=== PATIENT | female | born 1955 | race Caucasian/White ===

== ENCOUNTER 2018-05-17 15:50 | Emergency (ER) | payer MEDICARE, OTHER, SELFPAY ==
[2018-05-17 16:20] VITALS: BP 121/80; PULSE 94; RESP 18; TEMP 37.3; O2SAT 99; BMI 34.0
--- NOTE | 2018-05-17 17:14 | ED.ABDPAIN ---
HPI - Abdominal Pain <Shila Hdez PA-C - Last Filed: 05/17/18 22:01> General Chief Complaint: Abdominal Pain Stated Complaint: THINKS BLADDER / KIDNEY INFECTION Time Seen by Provider: 05/17/18 17:08 Source: patient Mode of arrival: ambulatory Limitations: no limitations History of Present Illness HPI narrative: This 62-year-old female comes in due to concern for kidney or bladder infection. She states that she began to have some mild dysuria off and on about a week ago and this was after traveling, so thought she just needed to drink more water. She states for the last couple of days, she has had increased frequency, urgency and dysuria, and for the last 2 nights she has had pain across her lower abdomen and flanks. She states that this occurred in bed and lasted for a few hours. She states today, she felt the pain in her back when she was up and also noticed that she had a temperature up to 99.8, so thought she should have this checked out. 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 She states that she has been maybe slightly queasy, no vomiting. She denies any bowel symptoms. No recent illness or other travel. No swelling in the extremities, chest pain or dyspnea Related Data Home Medications Medication Instructions Recorded Confirmed atenolol 50 mg PO DAILY 05/17/18 05/17/18 cetirizine 10 mg PO DAILY 05/17/18 05/17/18 fluticasone 1 spray INTRANASAL DAILY PRN 05/17/18 05/17/18 levothyroxine [Synthroid] 50 mcg PO DAILY 05/17/18 05/17/18 pantoprazole 40 mg PO QPM 05/17/18 05/17/18 Previous Rx's Medication Instructions Recorded levofloxacin [Levaquin] 750 mg PO DAILY 7 Days #7 tab 05/17/18 phenazopyridine [Pyridium] 200 mg PO Q8H PRN 2 Days #6 tab 05/17/18 Allergies Allergy/AdvReac Type Severity Reaction Status Date / Time Penicillins [PENICILLINS] Allergy Mild RASH Unverified 10/18/17 12:30 doxycycline [DOXYCYCLINE] Allergy Unknown Unverified 10/18/17 12:30 erythromycin base Allergy Unknown Unverified 04/11/18 12:30 [ERYTHROMYCIN BASE] fluconazole [FLUCONAZOLE] Allergy Unknown Unverified 10/18/17 12:30 metoclopramide Allergy Unknown Unverified 10/18/17 12:30 [METOCLOPRAMIDE] Sulfa (Sulfonamide Allergy Unknown Unverified 10/18/17 12:30 Antibiotics) tetracycline [TETRACYCLINE] Allergy Unknown Unverified 10/18/17 12:30 Review of Systems <JUAN JOSE Espinoza Last Filed: 05/17/18 22:01> Review of Systems All systems reviewed & are unremarkable except as noted in HPI and below Exam <JUAN JOSE Espinoza Last Filed: 05/17/18 22:01> Narrative Exam Narrative: GENERAL APPEARANCE: Patient sitting comfortably, in no distress, reading. LUNGS: Clear to auscultation bilaterally. HEART: Rate and rhythm regular without murmur, normal S1 and S2, no S3 or S4. ABDOMEN: Soft, ND, +BS x 4 quadrants, minimal suprapubic tenderness without guarding or rebound. Mild bilateral CVAT DERMATOLOGIC: No exanthem NEUROLOGIC: Alert and oriented with normal speech and coordination Initial Vital Signs Initial Vital Signs: Vital Signs Temperature 99.2 F 05/17/18 16:20 Pulse Rate 94 H 05/17/18 16:20 Respiratory Rate 18 05/17/18 16:20 Blood Pressure 121/80 05/17/18 16:20 Pulse Oximetry 99 05/17/18 16:20 <Alec Tian DO - Last Filed: 05/18/18 13:46> Initial Vital Signs Initial Vital Signs: Vital Signs Temperature 99.2 F 05/17/18 16:20 Pulse Rate 94 H 05/17/18 16:20 Respiratory Rate 18 05/17/18 16:20 Blood Pressure 121/80 05/17/18 16:20 Pulse Oximetry 99 05/17/18 16:20 Course <JUAN JOSE Espinoza Last Filed: 05/17/18 22:01> Orders Ordered: ED Orders 05/17/18 17:05 Urine Culture Stat Urine Microscopic Stat 05/17/18 17:46 Complete Blood Count AUTO DIFF Stat Comprehensive Metabolic Panel Stat Lactate (Lactic Acid) Stat Lipase Stat Vital Signs - 8 hr 05/17/18 16:20 05/17/18 19:24 Temperature 99.2 F 98.4 F Pulse Rate 94 H 62 Respiratory Rate 18 18 Blood Pressure 121/80 134/72 Pulse Oximetry 99 97 <Alec Tian DO - Last Filed: 05/18/18 13:46> Orders Ordered: ED Orders 05/17/18 17:05 Urine Culture Stat Urine Microscopic Stat 05/17/18 17:46 Complete Blood Count AUTO DIFF Stat Comprehensive Metabolic Panel Stat Lactate (Lactic Acid) Stat Lipase Stat Vital Signs - 8 hr 05/17/18 16:20 05/17/18 19:24 Temperature 99.2 F 98.4 F Pulse Rate 94 H 62 Respiratory Rate 18 18 Blood Pressure 121/80 134/72 Pulse Oximetry 99 97 MDM - Abdominal Pain <Shila Hdez PA-C - Last Filed: 05/17/18 22:01> Lab Data Result diagrams: 05/17/18 17:46 05/17/18 17:46 Lab Results 05/17/18 05/17/18 05/17/18 Range/Units 17:05 17:46 17:46 WBC 10.6 (4.5-11.0) X10^3/uL RBC 4.32 (4.0-5.2) X10^6/uL Hgb 12.6 (12.0-16.0) g/dL Hct 38.2 (36-46) % MCV 88.3 (80-100) fL MCH 29.2 (26-34) PG MCHC 33.1 (30-36) % RDW 14.1 (11.6-14.8) % Plt Count 299 (150-400) X10^3/uL Neut % (Auto) 67.7 (50-75) % Lymph % (Auto) 20.4 L (25-40) % [place] % (Auto) 10.6 (3-14) % Eos % (Auto) 0.7 L (2-4) % Baso % (Auto) 0.6 (0-2) % Neut # (Auto) 7200 H (9073-6266) /uL Sodium 141 (137-145) mmol/L Potassium 4.1 (3.4-5.1) mmol/L Chloride 105 (98-107) mmol/L Carbon Dioxide 27 (22-32) mmol/L BUN 13 (7-17) mg/dL Creatinine 0.60 (0.52-1.04) mg/dL Estimated GFR > 60.0 (>60) mL/min BUN/Creatinine Ratio 21.7 (6-22) Glucose 89 (80-110) mg/dL Lactate (0.7-2.1) mmol/L Calcium 9.3 (8.4-10.2) mg/dL Total Bilirubin 0.4 (0.2-1.3) mg/dL AST 23 (14-36) IU/L ALT 33 (9-52) IU/L Alkaline Phosphatase 76 (38-126) U/L Total Protein 7.5 (6.3-8.2) g/dL Albumin 4.1 (3.5-5.0) g/dL Globulin 3.4 (1.7-4.1) g/dL Albumin/Globulin Ratio 1.2 (1.0-2.8) Lipase 122 (23-300) U/L Urine RBC 1-5/hpf (0-5/HPF) Urine WBC 10-30/hpf H (0-5/HPF) Ur Squamous Epith Cells 0-1 /hpf Urine Bacteria Few (2-10) H (None) Ur Culture Indicated? Specimen cultured Micro UA Comment Not Reportable 05/17/18 Range/Units 17:46 WBC (4.5-11.0) X10^3/uL RBC (4.0-5.2) X10^6/uL Hgb (12.0-16.0) g/dL Hct (36-46) % MCV (80-100) fL MCH (26-34) PG MCHC (30-36) % RDW (11.6-14.8) % Plt Count (150-400) X10^3/uL Neut % (Auto) (50-75) % Lymph % (Auto) (25-40) % [place] % (Auto) (3-14) % Eos % (Auto) (2-4) % Baso % (Auto) (0-2) % Neut # (Auto) (3815-5857) /uL Sodium (137-145) mmol/L Potassium (3.4-5.1) mmol/L Chloride (98-107) mmol/L Carbon Dioxide (22-32) mmol/L BUN (7-17) mg/dL Creatinine (0.52-1.04) mg/dL Estimated GFR (>60) mL/min BUN/Creatinine Ratio (6-22) Glucose (80-110) mg/dL Lactate 0.8 (0.7-2.1) mmol/L Calcium (8.4-10.2) mg/dL Total Bilirubin (0.2-1.3) mg/dL AST (14-36) IU/L ALT (9-52) IU/L Alkaline Phosphatase (38-126) U/L Total Protein (6.3-8.2) g/dL Albumin (3.5-5.0) g/dL Globulin (1.7-4.1) g/dL Albumin/Globulin Ratio (1.0-2.8) Lipase (23-300) U/L Urine RBC (0-5/HPF) Urine WBC (0-5/HPF) Ur Squamous Epith Cells Urine Bacteria (None) Ur Culture Indicated? Micro UA Comment Point of care testing: Urine Dip Bedside Urine Glucose Negative Bedside Urine Bilirubin - Negative Bedside Urine Ketone - Negative Urine Specific [place] 1.010 Bedside Urine Occult Blood +/- Bedside Urine pH 6.0 Bedside Urine Protein - Negative Bedside Urine Urobilinogen - Negative Bedside Urine Nitrite - Negative Bedside Urine Leukocytes - Negative Esterase <Alec Tian, DO - Last Filed: 05/18/18 13:46> Lab Data Lab Results 05/17/18 05/17/18 05/17/18 Range/Units 17:05 17:46 17:46 WBC 10.6 (4.5-11.0) X10^3/uL RBC 4.32 (4.0-5.2) X10^6/uL Hgb 12.6 (12.0-16.0) g/dL Hct 38.2 (36-46) % MCV 88.3 (80-100) fL MCH 29.2 (26-34) PG MCHC 33.1 (30-36) % RDW 14.1 (11.6-14.8) % Plt Count 299 (150-400) X10^3/uL Neut % (Auto) 67.7 (50-75) % Lymph % (Auto) 20.4 L (25-40) % [place] % (Auto) 10.6 (3-14) % Eos % (Auto) 0.7 L (2-4) % Baso % (Auto) 0.6 (0-2) % Neut # (Auto) 7200 H (1144-0520) /uL Sodium 141 (137-145) mmol/L Potassium 4.1 (3.4-5.1) mmol/L Chloride 105 (98-107) mmol/L Carbon Dioxide 27 (22-32) mmol/L BUN 13 (7-17) mg/dL Creatinine 0.60 (0.52-1.04) mg/dL Estimated GFR > 60.0 (>60) mL/min BUN/Creatinine Ratio 21.7 (6-22) Glucose 89 (80-110) mg/dL Lactate (0.7-2.1) mmol/L Calcium 9.3 (8.4-10.2) mg/dL Total Bilirubin 0.4 (0.2-1.3) mg/dL AST 23 (14-36) IU/L ALT 33 (9-52) IU/L Alkaline Phosphatase 76 (38-126) U/L Total Protein 7.5 (6.3-8.2) g/dL Albumin 4.1 (3.5-5.0) g/dL Globulin 3.4 (1.7-4.1) g/dL Albumin/Globulin Ratio 1.2 (1.0-2.8) Lipase 122 (23-300) U/L Urine RBC 1-5/hpf (0-5/HPF) Urine WBC 10-30/hpf H (0-5/HPF) Ur Squamous Epith Cells 0-1 /hpf Urine Bacteria Few (2-10) H (None) Ur Culture Indicated? Specimen cultured Micro UA Comment Not Reportable 05/17/18 Range/Units 17:46 WBC (4.5-11.0) X10^3/uL RBC (4.0-5.2) X10^6/uL Hgb (12.0-16.0) g/dL Hct (36-46) % MCV (80-100) fL MCH (26-34) PG MCHC (30-36) % RDW (11.6-14.8) % Plt Count (150-400) X10^3/uL Neut % (Auto) (50-75) % Lymph % (Auto) (25-40) % [place] % (Auto) (3-14) % Eos % (Auto) (2-4) % Baso % (Auto) (0-2) % Neut # (Auto) (7194-3437) /uL Sodium (137-145) mmol/L Potassium (3.4-5.1) mmol/L Chloride (98-107) mmol/L Carbon Dioxide (22-32) mmol/L BUN (7-17) mg/dL Creatinine (0.52-1.04) mg/dL Estimated GFR (>60) mL/min BUN/Creatinine Ratio (6-22) Glucose (80-110) mg/dL Lactate 0.8 (0.7-2.1) mmol/L Calcium (8.4-10.2) mg/dL Total Bilirubin (0.2-1.3) mg/dL AST (14-36) IU/L ALT (9-52) IU/L Alkaline Phosphatase (38-126) U/L Total Protein (6.3-8.2) g/dL Albumin (3.5-5.0) g/dL Globulin (1.7-4.1) g/dL Albumin/Globulin Ratio (1.0-2.8) Lipase (23-300) U/L Urine RBC (0-5/HPF) Urine WBC (0-5/HPF) Ur Squamous Epith Cells Urine Bacteria (None) Ur Culture Indicated? Micro UA Comment Point of care testing: Urine Dip Bedside Urine Glucose Negative Bedside Urine Bilirubin - Negative Bedside Urine Ketone - Negative Urine Specific [place] 1.010 Bedside Urine Occult Blood +/- Bedside Urine pH 6.0 Bedside Urine Protein - Negative Bedside Urine Urobilinogen - Negative Bedside Urine Nitrite - Negative Bedside Urine Leukocytes - Negative Esterase Discharge Plan Departure Patient Disposition: Home Clinical Impression: Acute pyelonephritis Discharge Date/Time: 05/17/18 19:26 Interventions: ED Discharge Assessment Last Done: 05/17/18 19:24 Instructions: DI for Kidney Infection Activity Restrictions/Additional Instructions: Please return as we talked about if you have any acutely worsening symptoms, or new symptoms such as high fever or vomiting. Otherwise, please follow-up with your PCP in a few days for recheck. Start the antibiotic levofloxacin that you have taken in the past this evening. It you can also the urinary tract pain reliever as needed. Prescriptions: New levofloxacin [Levaquin] 750 mg tablet 750 mg PO DAILY 7 Days Qty: 7 RF: 0 phenazopyridine [Pyridium] 200 mg tablet 200 mg PO Q8H PRN (Reason: urinary) 2 Days Qty: 6 RF: 0 No Action cetirizine 10 mg tablet 10 mg PO DAILY RF: 0 levothyroxine [Synthroid] 50 mcg tablet 50 mcg PO DAILY RF: 0 pantoprazole 40 mg tablet,delayed release (DR/EC) 40 mg PO QPM RF: 0 fluticasone 50 mcg/actuation spray,suspension 1 spray Intranasal DAILY PRN (Reason: Allergy Symptoms) RF: 0 atenolol 50 mg tablet 50 mg PO DAILY RF: 0 Referrals: Madelyn Mckeon MD [Primary Care Provider] - <Alec Tian DO - Last Filed: 05/18/18 13:46> Cosign ED Attending Cosignature Attestation: I was immediately available in the department for consultation. Documentation has been reviewed. I agree with assessment and plan.
[2018-05-17 17:26] LABS: RBC Urine 1-5/HPF (0-5/HPF)
[2018-05-17 17:27] LABS: Bacteria Urine Few (2-10); Culture Indicated Urine Specimen Cultured; Squamous Epithelial Cell Urine 0-1 /HPF; WBC Urine 10-30/HPF (0-5/HPF)
[2018-05-17 17:52] LABS: Add Manual Diff / Slide Review NO; Basophils Percent Auto 0.6 % (0-2); Eosinophils Percent Auto 0.7 % (2-4); Hematocrit 38.2 % (36-46); Hemoglobin 12.6 g/dL (12.0-16.0); Lymphocytes Percent Auto 20.4 % (25-40); Mean Corpuscular HGB Conc 33.1 % (30-36); Mean Corpuscular Hemoglobin 29.2 PG (26-34); Mean Corpuscular Volume 88.3 fL (80-100); Monocytes Percent Auto 10.6 % (3-14); Neutrophils Absolute Auto 7200 /uL (3000-5900); Neutrophils Percent Auto 67.7 % (50-75); Platelet Count 299 X10^3/uL (150-400); Red Blood Cell Count 4.32 X10^6/uL (4.0-5.2); Red Cell Distribution Width 14.1 % (11.6-14.8); White Blood Cell Count 10.6 X10^3/uL (4.5-11.0)
[2018-05-17 18:06] LABS: Lactate (Lactic Acid) 0.8 mmol/L (0.7-2.1)
[2018-05-17 18:07] LABS: Alanine Aminotransferase 33 IU/L (9-52); Albumin 4.1 g/dL (3.5-5.0); Albumin Globulin Ratio 1.2 (1.0-2.8); Alkaline Phosphatase 76 U/L (38-126); Aspartate Aminotransferase 23 IU/L (14-36); BUN Creatinine Ratio 21.7 (6-22); Bilirubin Total 0.4 mg/dL (0.2-1.3); Blood Urea Nitrogen 13 mg/dL (7-17); Calcium 9.3 mg/dL (8.4-10.2); Carbon Dioxide 27 mmol/L (22-32); Chloride 105 mmol/L (98-107); Estimated Glomerular Filt Rate > 60.0 mL/min (>60); Globulin 3.4 g/dL (1.7-4.1); Glucose 89 mg/dL (80-110); HEMOLYSIS < 15 (0-50); Lipase 122 U/L (23-300); Potassium 4.1 mmol/L (3.4-5.1); Sodium 141 mmol/L (137-145); Total Protein 7.5 g/dL (6.3-8.2)
[2018-05-17 19:24] VITALS: BP 134/72; PULSE 62; RESP 18; TEMP 36.9; O2SAT 97
== END 2018-05-17 19:26 | disposition home or self-care (01) ==
PROVIDERS: Emergency Medicine; Emergency Provider Internal Medicine; Family Provider Internal Medicine; PCP Internal Medicine
DX: N10 Acute pyelonephritis (principal)
CPT/HCPCS: 36415; 80053; 81003; 81015; 83605; 83690; 85025; 87077; 87086; 87186; 99282; 99283

== ENCOUNTER 2018-12-21 08:39 | Emergency (ER) | payer MEDICARE, OTHER, SELFPAY ==
[2018-12-21 08:47] VITALS: BP 146/78; PULSE 81; RESP 20; TEMP 36.5; O2SAT 95; BMI 35.2
--- NOTE | 2018-12-21 09:53 | ED.BACK ---
HPI - Back Pain/Injury General Chief Complaint: Back Pain/Injury Stated Complaint: back pain Time Seen by Provider: 12/21/18 10:18 Source: patient and family Mode of arrival: ambulatory Limitations: no limitations History of Present Illness HPI Narrative: 63-year-old female comes to the emergency department complaint of back pain. Patient states sort of her right thoracic area, it has been going on for about a month it has been slowly worsening. She finds a little bit worse with movement. Patient states it was coming around to the front a little bit but now it is mostly just in the back and a little bit on the side. It radiates a little bit up towards her scapula. She denies any shortness of breath she denies any worsening with exertion. No fevers or chills. No cold cough or congestion. No nausea, no vomiting no other major GI symptom changes. Patient has had her gallbladder removed along with hysterectomy and partial thyroidectomy. She takes medication for a ?benign and tachycardia?, occasional asthma medications, thyroid medication and GERD medication. She denies any history of hypertension or dyslipidemia. No rashes or skin changes. Patient states she has been taking Tylenol which is helpful that the pain typically comes back. She states that it was becoming more uncomfortable so she came in today for evaluation. She has had back problems in the past but not specifically in this location. No trauma, no falls or major exertion. She states she does garden regularly. Related Data Home Medications Medication Instructions Recorded Confirmed atenolol 50 mg PO DAILY 05/17/18 12/21/18 cetirizine 10 mg PO QPM 05/17/18 12/21/18 fluticasone propionate 1 spray INTRANASAL DAILY PRN 05/17/18 12/21/18 levothyroxine [Synthroid] 50 mcg PO DAILY 05/17/18 12/21/18 pantoprazole 40 mg PO QPM 05/17/18 12/21/18 albuterol sulfate [ProAir HFA] 1 puff INHALATION PRN PRN 12/21/18 12/21/18 loperamide 2 mg PO PRN PRN 12/21/18 12/21/18 Allergies Allergy/AdvReac Type Severity Reaction Status Date / Time Penicillins [PENICILLINS] Allergy Mild RASH Unverified 10/18/17 12:30 doxycycline [DOXYCYCLINE] Allergy Unknown Unverified 10/18/17 12:30 erythromycin base Allergy Unknown Unverified 10/18/17 12:30 [ERYTHROMYCIN BASE] fluconazole [FLUCONAZOLE] Allergy Unknown Unverified 10/18/17 12:30 metoclopramide Allergy Unknown Unverified 10/18/17 12:30 [METOCLOPRAMIDE] Sulfa (Sulfonamide Allergy Unknown Unverified 10/18/17 12:30 Antibiotics) tetracycline [TETRACYCLINE] Allergy Unknown Unverified 10/18/17 12:30 Review of Systems Review of Systems ROS Unobtainable: All systems reviewed & are unremarkable except as noted in HPI and below Constitutional Denies chills, Denies fever(s), Denies lethargy and Denies weakness ENT Ears, Nose, Mouth, and Throat: Denies nasal congestion Cardiovascular Denies chest pain, Denies diaphoresis, Denies syncope, Denies rapid heart rate, Denies edema, Denies irregular heart rhythm, Denies lightheadedness, Denies palpitations, Denies dyspnea, Denies dyspnea on exertion and Denies orthopnea Respiratory Denies change in phlegm color, Denies chest congestion, Denies cough, Denies excessive phlegm production, Denies pain on inspiration, Denies dyspnea, Denies dyspnea on exertion and Denies wheezing Gastrointestinal Gastrointestinal: Denies abdominal pain, Denies melena, Denies hematochezia, Denies change in bowel habits, Denies diarrhea, Denies nausea and Denies vomiting Genitourinary Denies hematuria, Reports urinary frequency, Denies dysuria, Reports flank pain (Right back/flank), Denies urinary incontinence and Denies urinary urgency Musculoskeletal Reports as per HPI, Reports back pain, Denies muscle weakness, Denies numbness and Denies tingling Integumentary/Breasts Denies rash Neurologic Denies syncope, Denies numbness, Denies tingling and Denies weakness Endocrine Denies palpitations Allergic/Immunologic Denies wheezing [facility] Medical History Degenerative disc disease (Chronic) GERD (gastroesophageal reflux disease) (Chronic) Hypothyroidism (Chronic) Osteoarthritis of multiple joints (Chronic) Tachycardia, paroxysmal (Chronic) Surgical History H/O partial thyroidectomy (Resolved) Status post cholecystectomy (Resolved) Status post hysterectomy (Resolved) Social History Smoking Status: Never smoker Social History Smoking Status: Never smoker alcohol intake: current substance use type: does not use Exam Narrative Exam Narrative: GENERAL: Alert and oriented x three, moderately obese, well-appearing female in mild distress. HEENT: Head normocephalic, atraumatic, EOMI, pupils reactive, face symmetric, moist mucous membranes NECK: Supple, full range of motion CARDIOVASCULAR: Regular rate and rhythm without murmurs, rubs or gallops. RESPIRATORY: Breath sounds equal bilaterally, no wheezes rales or rhonchi. ABDOMEN: Soft, nontender. Normoactive bowel sounds all 4 quadrants. No guarding or rebound, rigidity, no mass : No CVA tenderness BACK: No cervical, thoracic or lumbar vertebral point tenderness. Patient has normal range of motion. Patient's gait is normal. Rectal exam is deferred. Muscle strength is 5/5 in upper and lower extremities, sensation intact in all 4 extremities. No skin changes, patient has some tenderness over the right ribcage along the posterior and anterior chest but no point tenderness, no crepitus or subcutaneous emphysema. EXTREMITIES: Normal range of motion, no clubbing or edema. Neurovascularly intact NEUROLOGICAL: Cranial nerves II through XII grossly intact. Moving all extremities SKIN: Warm, dry, no petechiae, no rashes or lesions. Initial Vital Signs Initial Vital Signs: Vital Signs Temperature 97.7 F 12/21/18 08:47 Pulse Rate 81 12/21/18 08:47 Respiratory Rate 20 12/21/18 08:47 Blood Pressure 146/78 H 12/21/18 08:47 Pulse Oximetry 95 12/21/18 08:47 Scores HEART Score Heart Score history: Slightly Suspicious Heart Score EKG: Normal Heart Score Age: > or = 65 years old Heart Score risk factors: No known risk factors Heart Score troponin: < or = to normal limit Heart Score Total: 2 Course Orders Ordered: ED Orders 12/21/18 10:37 US abdomen complete Stat XR chest 2V Stat EKG-12 Lead Stat 12/21/18 11:10 Complete Blood Count AUTO DIFF Stat Comprehensive Metabolic Panel Stat Lipase Stat Troponin & CK Cardiac Panel Stat Discontinued Medications Ketorolac Tromethamine (Toradol) 30 mg IV NOW ONE Stop: 12/21/18 10:38 Last Admin: 12/21/18 11:33 Dose: 30 mg Vital Signs - 8 hr 12/21/18 11:39 12/21/18 12:25 12/21/18 12:45 Pulse Rate 67 62 64 Respiratory Rate 11 L 14 18 Blood Pressure 124/63 Blood Pressure [Right Arm] 130/73 115/57 L Pulse Oximetry 99 100 98 MDM - Back Pain/Injury Lab Data Attestation: I reviewed the patient's lab results. Result diagrams: 12/21/18 11:10 12/21/18 11:10 Lab Results 12/21/18 12/21/18 Range/Units 11:10 11:10 WBC 8.1 (4.5-11.0) X10^3/uL RBC 4.52 (4.0-5.2) X10^6/uL Hgb 13.2 (12.0-16.0) g/dL Hct 39.4 (36-46) % MCV 87.2 (80-100) fL MCH 29.2 (26-34) PG MCHC 33.5 (30-36) % RDW 14.3 (11.6-14.8) % Plt Count 307 (150-400) X10^3/uL Neut % (Auto) 60.4 (50-75) % Lymph % (Auto) 27.2 (25-40) % Benton % (Auto) 9.2 (3-14) % Eos % (Auto) 2.0 (2-4) % Baso % (Auto) 1.2 (0-2) % Neut # (Auto) 4900 (0632-1842) /uL Lymph # (Auto) 2200 (2291-3387) /uL Benton # (Auto) 700 (0-900) /uL Eos # (Auto) 200 (0-450) /uL Baso # (Auto) 100 (0-100) /uL Sodium 139 (137-145) mmol/L Potassium 4.7 (3.4-5.1) mmol/L Chloride 107 (98-107) mmol/L Carbon Dioxide 24 (22-32) mmol/L BUN 14 (7-17) mg/dL Creatinine 0.60 (0.52-1.04) mg/dL Estimated GFR > 60.0 (>60) mL/min BUN/Creatinine Ratio 23.3 H (6-22) Glucose 93 (80-110) mg/dL Calcium 9.4 (8.4-10.2) mg/dL Total Bilirubin 0.6 (0.2-1.3) mg/dL AST 32 (14-36) IU/L ALT 26 (9-52) IU/L Alkaline Phosphatase 73 (38-126) U/L Total Creatine Kinase 51 (30-135) U/L CK-MB (CK-2) TNP CK-MB (CK-2) Rel Index TNP Troponin I < 0.012 (0.01-0.034) ng/mL Total Protein 8.0 (6.3-8.2) g/dL Albumin 4.2 (3.5-5.0) g/dL Globulin 3.8 (1.7-4.1) g/dL Albumin/Globulin Ratio 1.1 (1.0-2.8) Lipase 94 (23-300) U/L Urine Dip Bedside Urine Glucose Negative Bedside Urine Bilirubin - Negative Bedside Urine Ketone - Negative Urine Specific P[place]oy 1.015 Bedside Urine Occult Blood - Negative Bedside Urine pH 6.0 Bedside Urine Protein - Negative Bedside Urine Urobilinogen - Negative Bedside Urine Nitrite - Negative Bedside Urine Leukocytes - Negative Esterase Imaging Data US - abdomen: My impression: [address] [address] Ultrasound Report Signed Patient: Martha Canales QMR#: [id number] : 3Acct:[id number] Age/Sex: 63 / FDate of Service: 12/21/18 Loc: ED Accession Number: [id number] Procedure: US abdomen complete Ordering Provider: Cathy Barton D.O. PROCEDURE: US ABDOMEN COMPLETE INDICATIONS: RIGHT FLANK/ABDOMINAL PAIN. NOW MOSTLY FLANK TECHNIQUE: Real-time scanning was performed of the abdominal and retroperitoneal organs, with image documentation. COMPARISON: [facility], CT, ABDOMEN/PELVIS WITH CONTRAST, 04/21/2015, 21:23. FINDINGS: Liver: Liver is normal in size and homogeneous in echotexture, hyperechoic consistent with fatty infiltration. Gallbladder: Surgically absent. Biliary ducts: Intrahepatic bile ducts are non-dilated. Extrahepatic bile duct caliber measures 9.0 mm. Normal is 6-7 mm or less in diameter, or 10 mm or less post-cholecystectomy. Pancreas: Visualized portions of the pancreas are sonographically normal. Spleen: Spleen is normal in size and homogeneous in echotexture. Kidneys: Kidneys are normal in size and echotexture. Right kidney measures 8.8 cm long; left kidney measures 9.3 cm long. No hydronephrosis or nephrolithiasis. No solid masses. Aorta: Visualized aorta is normal in caliber at less than 3 cm. Iliacs: Proximal common iliac arteries are normal in caliber at less than 2.5 cm. IVC: Intrahepatic inferior vena cava is patent. Miscellaneous: No free abdominal fluid. IMPRESSION: Fatty infiltration throughout the liver, prior cholecystectomy. The source of right-sided flank pain is not found. Quality of visualization is somewhat limited by large body habitus, and depending on the clinical status followup by CT scanning may be warranted. Dictated by: Goyo Mackey M.D. on 12/21/2018 at 11:13 Approved by: Goyo Mackey M.D. on 12/21/2018 at 11:15 Chest x-ray: Radiologist's impression: [place] [address] XRay Report Signed Patient: Martha Canales QMR#: [id number] : 1955cct:[id number] Age/Sex: 63 / FDate of Service: 12/21/18 Loc: ED Accession Number: [id number] Procedure: XR chest 2V Ordering Provider: Cathy Barton D.O. PROCEDURE: XR CHEST 2V INDICATIONS: right rib/abd pain x 1 month TECHNIQUE: 2 views of the chest were acquired. COMPARISON: [facility], CHEST 2 VIEW, 11/14/2016, 19:37. [facility], CHEST 2 VIEW, 05/21/2016, 20:22. FINDINGS: Surgical changes and devices: None. Lungs and pleura: Lungs are clear. No pleural effusions or pneumothorax. Mediastinum: Mediastinal contours are normal. Heart size is normal. Bones and chest wall: No suspicious bony abnormalities. Soft tissues appear unremarkable. IMPRESSION: No trauma found, no underlying pleural disease is identified. Source of persistent rib pain is not seen. Dictated by: Goyo Mackey M.D. on 12/21/2018 at 11:13 Approved by: Goyo Mackey M.D. on 12/21/2018 at 11:13 ECG Data Attestation: I personally reviewed and interpreted this ECG as follows: Prior ECG tracings: available for review Interpretation: Rhythm rate of 72 P are 200 QRS 88 QTC of 421. No ST elevation or depression appreciated. Patient has prior for 11/15/2016 that appears similar. MDM Narrative Medical decision making narrative: Patient comes in with complaint of back pain. It is worse with some movement. It sort of thoracic at 1 point was wrapping more around to the front mostly just wraps around a little bit laterally. A little bit of flank sort of pain. Patient has not had any trauma. She has not had pain exactly similar. Patient's EKG, chest x-ray and troponin are negative no signs of infection. Ultrasound does not show any major abnormalities nor does her lab work otherwise from an abdominal standpoint, patient has had a cholecystectomy and her Biliary ducts are appropriate for post cholecystectomy size, patient's kidneys are normal. Urine does not show an infection. She has no rashes or skin changes consistent with shingles, patient is not having any shortness of breath or other symptoms concerning for pulmonary embolism. Discussed with patient suspect probably is more of a musculoskeletal issue. Discharge Plan Departure Patient Disposition: Home Clinical Impression: Thoracic back pain Qualifiers: Chronicity: chronic Back pain laterality: right Qualified Code(s): M54.6 - Pain in thoracic spine Discharge Date/Time: 12/21/18 12:45 Interventions: ED Discharge Assessment Last Done: 12/21/18 12:45 Instructions: DI for Thoracic Back Pain Activity Restrictions/Additional Instructions: Follow-up with your primary care physician in the next week for recheck. Call for an appointment. You may also take Tylenol up to a 1000 mg every 8 hours as needed for pain. Return to the emergency department for fevers could 100.4 F passing out, new chest pain, shortness of breath, lightheadedness, persistent vomiting, black or bloody stools or other new or concerning symptoms. Prescriptions: No Action albuterol sulfate [ProAir HFA] 90 mcg/actuation HFA aerosol inhaler 1 puff inhalation PRN PRN (Reason: Shortness Of Breath) RF: 0 loperamide 2 mg Capsule 2 mg PO PRN PRN (Reason: Diarrhea) RF: 0 cetirizine 10 mg tablet 10 mg PO QPM RF: 0 levothyroxine [Synthroid] 50 mcg tablet 50 mcg PO DAILY RF: 0 pantoprazole 40 mg tablet,delayed release (DR/EC) 40 mg PO QPM RF: 0 fluticasone propionate 50 mcg/actuation spray,suspension 1 spray Intranasal DAILY PRN (Reason: Allergy Symptoms) RF: 0 atenolol 50 mg tablet 50 mg PO DAILY RF: 0 Referrals: Madelyn Mckeon MD [Primary Care Provider] -
--- NOTE | 2018-12-21 10:37 | DI.RAD.S_ITS ---
PROCEDURE: XR CHEST 2V INDICATIONS: right rib/abd pain x 1 month TECHNIQUE: 2 views of the chest were acquired. COMPARISON: [facility], CHEST 2 VIEW, 11/14/2016, 19:37. [facility], CHEST 2 VIEW, 05/21/2016, 20:22. FINDINGS: Surgical changes and devices: None. Lungs and pleura: Lungs are clear. No pleural effusions or pneumothorax. Mediastinum: Mediastinal contours are normal. Heart size is normal. Bones and chest wall: No suspicious bony abnormalities. Soft tissues appear unremarkable. IMPRESSION: No trauma found, no underlying pleural disease is identified. Source of persistent rib pain is not seen. Dictated by: Goyo Mackey M.D. on 12/21/2018 at 11:13 Approved by: Goyo Mackey M.D. on 12/21/2018 at 11:13
--- NOTE | 2018-12-21 10:37 | DI.US.S_ITS ---
PROCEDURE: US ABDOMEN COMPLETE INDICATIONS: RIGHT FLANK/ABDOMINAL PAIN. NOW MOSTLY FLANK TECHNIQUE: Real-time scanning was performed of the abdominal and retroperitoneal organs, with image documentation. COMPARISON: [facility], CT, ABDOMEN/PELVIS WITH CONTRAST, 04/21/2015, 21:23. FINDINGS: Liver: Liver is normal in size and homogeneous in echotexture, hyperechoic consistent with fatty infiltration. Gallbladder: Surgically absent. Biliary ducts: Intrahepatic bile ducts are non-dilated. Extrahepatic bile duct caliber measures 9.0 mm. Normal is 6-7 mm or less in diameter, or 10 mm or less post-cholecystectomy. Pancreas: Visualized portions of the pancreas are sonographically normal. Spleen: Spleen is normal in size and homogeneous in echotexture. Kidneys: Kidneys are normal in size and echotexture. Right kidney measures 8.8 cm long; left kidney measures 9.3 cm long. No hydronephrosis or nephrolithiasis. No solid masses. Aorta: Visualized aorta is normal in caliber at less than 3 cm. Iliacs: Proximal common iliac arteries are normal in caliber at less than 2.5 cm. IVC: Intrahepatic inferior vena cava is patent. Miscellaneous: No free abdominal fluid. IMPRESSION: Fatty infiltration throughout the liver, prior cholecystectomy. The source of right-sided flank pain is not found. Quality of visualization is somewhat limited by large body habitus, and depending on the clinical status followup by CT scanning may be warranted. Dictated by: Goyo Mackey M.D. on 12/21/2018 at 11:13 Approved by: Goyo Mackey M.D. on 12/21/2018 at 11:15
--- NOTE | 2018-12-21 10:40 | ED_ITS ---
HPI - Back Pain/Injury General Chief Complaint: Back Pain/Injury Stated Complaint: back pain Time Seen by Provider: 12/21/18 10:18 Source: patient and family Mode of arrival: ambulatory Limitations: no limitations History of Present Illness HPI Narrative: 63-year-old female comes to the emergency department complaint of back pain. Patient states sort of her right thoracic area, it has been going on for about a month it has been slowly worsening. She finds a little bit worse with movement. Patient states it was coming around to the front a little bit but now it is mostly just in the back and a little bit on the side. It radiates a little bit up towards her scapula. She denies any shortness of breath she denies any worsening with exertion. No fevers or chills. No cold cough or congestion. No nausea, no vomiting no other major GI symptom changes. Patient has had her gallbladder removed along with hysterectomy and partial thyroidectomy. She takes medication for a ?benign and tachycardia?, occasional asthma medications, thyroid medication and GERD medication. She denies any history of hypertension or dyslipidemia. No rashes or skin changes. Patient states she has been taking Tylenol which is helpful that the pain typically comes back. She states that it was becoming more uncomfortable so she came in today for evaluation. She has had back problems in the past but not specifically in this location. No trauma, no falls or major exertion. She states she does garden regularly. Related Data Home Medications Medication Instructions Recorded Confirmed atenolol 50 mg PO DAILY 05/17/18 12/21/18 cetirizine 10 mg PO QPM 05/17/18 12/21/18 fluticasone propionate 1 spray INTRANASAL DAILY PRN 05/17/18 12/21/18 levothyroxine [Synthroid] 50 mcg PO DAILY 05/17/18 12/21/18 pantoprazole 40 mg PO QPM 05/17/18 12/21/18 albuterol sulfate [ProAir HFA] 1 puff INHALATION PRN PRN 12/21/18 12/21/18 loperamide 2 mg PO PRN PRN 12/21/18 12/21/18 Allergies Allergy/AdvReac Type Severity Reaction Status Date / Time Penicillins [PENICILLINS] Allergy Mild RASH Unverified 10/18/17 12:30 doxycycline [DOXYCYCLINE] Allergy Unknown Unverified 10/18/17 12:30 erythromycin base Allergy Unknown Unverified 10/18/17 12:30 [ERYTHROMYCIN BASE] fluconazole [FLUCONAZOLE] Allergy Unknown Unverified 10/18/17 12:30 metoclopramide Allergy Unknown Unverified 10/18/17 12:30 [METOCLOPRAMIDE] Sulfa (Sulfonamide Allergy Unknown Unverified 10/18/17 12:30 Antibiotics) tetracycline [TETRACYCLINE] Allergy Unknown Unverified 10/18/17 12:30 Review of Systems Review of Systems ROS Unobtainable: All systems reviewed & are unremarkable except as noted in HPI and below Constitutional Denies chills, Denies fever(s), Denies lethargy and Denies weakness ENT Ears, Nose, Mouth, and Throat: Denies nasal congestion Cardiovascular Denies chest pain, Denies diaphoresis, Denies syncope, Denies rapid heart rate, Denies edema, Denies irregular heart rhythm, Denies lightheadedness, Denies pa lpitations, Denies dyspnea, Denies dyspnea on exertion and Denies orthopnea Respiratory Denies change in phlegm color, Denies chest congestion, Denies cough, Denies excessive phlegm production, Denies pain on inspiration, Denies dyspnea, Denies dyspnea on exertion and Denies wheezing Gastrointestinal Gastrointestinal: Denies abdominal pain, Denies melena, Denies hematochezia, Denies change in bowel habits, Denies diarrhea, Denies nausea and Denies vomiting Genitourinary Denies hematuria, Reports urinary frequency, Denies dysuria, Reports flank pain (Right back/flank), Denies urinary incontinence and Denies urinary urgency Musculoskeletal Reports as per HPI, Reports back pain, Denies muscle weakness, Denies numbness and Denies tingling Integumentary/Breasts Denies rash Neurologic Denies syncope, Denies numbness, Denies tingling and Denies weakness Endocrine Denies palpitations Allergic/Immunologic Denies wheezing [facility] Medical History Degenerative disc disease (Chronic) GERD (gastroesophageal reflux disease) (Chronic) Hypothyroidism (Chronic) Osteoarthritis of multiple joints (Chronic) Tachycardia, paroxysmal (Chronic) Surgical History H/O partial thyroidectomy (Resolved) Status post cholecystectomy (Resolved) Status post hysterectomy (Resolved) Social History Smoking Status: Never smoker Social History Smoking Status: Never smoker alcohol intake: current substance use type: does not use Exam Narrative Exam Narrative: GENERAL: Alert and oriented x three, moderately obese, well- appearing female in mild distress. HEENT: Head normocephalic, atraumatic, EOMI, pupils reactive, face symmetric, moist mucous membranes NECK: Supple, full range of motion CARDIOVASCULAR: Regular rate and rhythm without murmurs, rubs or gallops. RESPIRATORY: Breath sounds equal bilaterally, no wheezes rales or rhonchi. ABDOMEN: Soft, nontender. Normoactive bowel sounds all 4 quadrants. No guarding or rebound, rigidity, no mass : No CVA tenderness BACK: No cervical, thoracic or lumbar vertebral point tenderness. Patient has normal range of motion. Patient's gait is normal. Rectal exam is deferred. Muscle strength is 5/5 in upper and lower extremities, sensation intact in all 4 extremities. No skin changes, patient has some tenderness over the right ribcage along the posterior and anterior chest but no point tenderness, no crepitus or subcutaneous emphysema. EXTREMITIES: Normal range of motion, no clubbing or edema. Neurovascularly intact NEUROLOGICAL: Cranial nerves II through XII grossly intact. Moving all extremities SKIN: Warm, dry, no petechiae, no rashes or lesions. Initial Vital Signs Initial Vital Signs: Vital Signs Temperature 97.7 F 12/21/18 08:47 Pulse Rate 81 12/21/18 08:47 Respiratory Rate 20 12/21/18 08:47 Blood Pressure 146/78 H 12/21/18 08:47 Pulse Oximetry 95 12/21/18 08:47 Scores HEART Score Heart Score history: Slightly Suspicious Heart Score EKG: Normal Heart Score Age: > or = 65 years old Heart Score risk factors: No known risk factors Heart Score troponin: < or = to normal limit Heart Score Total: 2 Course Orders Ordered: ED Orders 12/21/18 10:37 US abdomen complete Stat XR chest 2V Stat EKG-12 Lead Stat 12/21/18 11:10 Complete Blood Count AUTO DIFF Stat Comprehensive Metabolic Panel Stat Lipase Stat Troponin & CK Cardiac Panel Stat Discontinued Medications Ketorolac Tromethamine (Toradol) 30 mg IV NOW ONE Stop: 12/21/18 10:38 Last Admin: 12/21/18 11:33 Dose: 30 mg Vital Signs - 8 hr 12/21/18 11:39 12/21/18 12:25 12/21/18 12:45 Pulse Rate 67 62 64 Respiratory Rate 11 L 14 18 Blood Pressure 124/63 Blood Pressure [Right Arm] 130/73 115/57 L Pulse Oximetry 99 100 98 MDM - Back Pain/Injury Lab Data Attestation: I reviewed the patient's lab results. Result diagrams: 12/21/18 11:10 12/21/18 11:10 Lab Results 12/21/18 12/21/18 Range/Units 11:10 11:10 WBC 8.1 (4.5-11.0) X10^3/uL RBC 4.52 (4.0-5.2) X10^6/uL Hgb 13.2 (12.0-16.0) g/dL Hct 39.4 (36-46) % MCV 87.2 (80-100) fL MCH 29.2 (26-34) PG MCHC 33.5 (30-36) % RDW 14.3 (11.6-14.8) % Plt Count 307 (150-400) X10^3/uL Neut % (Auto) 60.4 (50-75) % Lymph % (Auto) 27.2 (25-40) % [place] % (Auto) 9.2 (3-14) % Eos % (Auto) 2.0 (2-4) % Baso % (Auto) 1.2 (0-2) % Neut # (Auto) 4900 (5164-3427) /uL Lymph # (Auto) 2200 (4029-8168) /uL [place] # (Auto) 700 (0-900) /uL Eos # (Auto) 200 (0-450) /uL Baso # (Auto) 100 (0-100) /uL Sodium 139 (137-145) mmol/L Potassium 4.7 (3.4-5.1) mmol/L Chloride 107 (98-107) mmol/L Carbon Dioxide 24 (22-32) mmol/L BUN 14 (7-17) mg/dL Creatinine 0.60 (0.52-1.04) mg/dL Estimated GFR > 60.0 (>60) mL/min BUN/Creatinine Ratio 23.3 H (6-22) Glucose 93 (80-110) mg/dL Calcium 9.4 (8.4-10.2) mg/dL Total Bilirubin 0.6 (0.2-1.3) mg/dL AST 32 (14-36) IU/L ALT 26 (9-52) IU/L Alkaline Phosphatase 73 (38-126) U/L Total Creatine Kinase 51 (30-135) U/L CK-MB (CK-2) TNP CK-MB (CK-2) Rel Index TNP Troponin I < 0.012 (0.01-0.034) ng/mL Total Protein 8.0 (6.3-8.2) g/dL Albumin 4.2 (3.5-5.0) g/dL Globulin 3.8 (1.7-4.1) g/dL Albumin/Globulin Ratio 1.1 (1.0-2.8) Lipase 94 (23-300) U/L Urine Dip Bedside Urine Glucose Negative Bedside Urine Bilirubin - Negative Bedside Urine Ketone - Negative Urine Specific [place] 1.015 Bedside Urine Occult Blood - Negative Bedside Urine pH 6.0 Bedside Urine Protein - Negative Bedside Urine Urobilinogen - Negative Bedside Urine Nitrite - Negative Bedside Urine Leukocytes - Negative Esterase Imaging Data US - abdomen: My impression: [address] [address] Ultrasound Report Signed Patient: Martha Canales QMR#: [id number] : 3Acct:[id number] Age/Sex: 63 / FDate of Service: 12/21/18 Loc: ED Accession Number: [id number] Procedure: US abdomen complete Ordering Provider: Cathy Barton D.O. PROCEDURE: US ABDOMEN COMPLETE INDICATIONS: RIGHT FLANK/ABDOMINAL PAIN. NOW MOSTLY FLANK TECHNIQUE: Real-time scanning was performed of the abdominal and retroperitoneal organs, with image documentation. COMPARISON: [facility], CT, ABDOMEN/PELVIS WITH CONTRAST, 04/21/2015, 21:23. FINDINGS: Liver: Liver is normal in size and homogeneous in echotexture, hyperechoic consistent with fatty infiltration. Gallbladder: Surgically absent. Biliary ducts: Intrahepatic bile ducts are non-dilated. Extrahepatic bile duct caliber measures 9.0 mm. Normal is 6-7 mm or less in diameter, or 10 mm or less post-cholecystectomy. Pancreas: Visualized portions of the pancreas are sonographically normal. Spleen: Spleen is normal in size and homogeneous in echotexture. Kidneys: Kidneys are normal in size and echotexture. Right kidney measures 8.8 cm long; left kidney measures 9.3 cm long. No hydronephrosis or nephrolithiasis. No solid masses. Aorta: Visualized aorta is normal in caliber at less than 3 cm. Iliacs: Proximal common iliac arteries are normal in caliber at less than 2.5 cm. IVC: Intrahepatic inferior vena cava is patent. Miscellaneous: No free abdominal fluid. IMPRESSION: Fatty infiltration throughout the liver, prior cholecystectomy. The source of right-sided flank pain is not found. Quality of visualization is somewhat limited by large body habitus, and depending on the clinical status followup by CT scanning may be warranted. Dictated by: Goyo Mackey M.D. on 12/21/2018 at 11:13 Approved by: Goyo Mackey M.D. on 12/21/2018 at 11:15 Chest x-ray: Radiologist's impression: [place] [address] XRay Report Signed Patient: Martha Canales QMR#: [id number] : [id number]:[id number] Age/Sex: 63 / FDate of Service: 12/21/18 Loc: ED Accession Number: [id number] Procedure: XR chest 2V Ordering Provider: Cathy Barton D.O. PROCEDURE: XR CHEST 2V INDICATIONS: right rib/abd pain x 1 month TECHNIQUE: 2 views of the chest were acquired. COMPARISON: [facility], CHEST 2 VIEW, 11/14/2016, 19:37. [facility], CHEST 2 VIEW, 05/21/2016, 20:22. FINDINGS: Surgical changes and devices: None. Lungs and pleura: Lungs are clear. No pleural effusions or pneumothorax. Mediastinum: Mediastinal contours are normal. Heart size is normal. Bones and chest wall: No suspicious bony abnormalities. Soft tissues appear unremarkable. IMPRESSION: No trauma found, no underlying pleural disease is identified. Source of persistent rib pain is not seen. Dictated by: Goyo Mackey M.D. on 12/21/2018 at 11:13 Approved by: Goyo Mackey M.D. on 12/21/2018 at 11:13 ECG Data Attestation: I personally reviewed and interpreted this ECG as follows: Prior ECG tracings: available for review Interpretation: Rhythm rate of 72 P are 200 QRS 88 QTC of 421. No ST elevation or depression appreciated. Patient has prior for 11/15/2016 that appears similar. MDM Narrative Medical decision making narrative: Patient comes in with complaint of back pain. It is worse with some movement. It sort of thoracic at 1 point was wrapping more around to the front mostly just wraps around a little bit laterally. A little bit of flank sort of pain. Patient has not had any trauma. She has not had pain exactly similar. Patient's EKG, chest x-ray and troponin are negative no signs of infection. Ultrasound does not show any major abnormalities nor does her lab work otherwise from an abdominal standpoint, patient has had a cholecystectomy and her Biliary ducts are appropriate for post cholecystectomy size, patient's kidneys are normal. Urine does not show an infection. She has no rashes or skin changes consistent with shingles, patient is not having any shortness of breath or other symptoms concerning for pulmonary embolism. Discussed with patient suspect probably is more of a musculoskeletal issue. Discharge Plan Departure Patient Disposition: Home Clinical Impression: Thoracic back pain Qualifiers: Chronicity: chronic Back pain laterality: right Qualified Code(s): M54.6 - Pain in thoracic spine Discharge Date/Time: 12/21/18 12:45 Interventions: ED Discharge Assessment Last Done: 12/21/18 12:45 Instructions: DI for Thoracic Back Pain Activity Restrictions/Additional Instructions: Follow-up with your primary care physician in the next week for recheck. Call for an appointment. You may also take Tylenol up to a 1000 mg every 8 hours as needed for pain. Return to the emergency department for fevers could 100.4 F passing out, new chest pain, shortness of breath, lightheadedness, persistent vomiting, black or bloody stools or other new or concerning symptoms. Prescriptions: No Action albuterol sulfate [ProAir HFA] 90 mcg/actuation HFA aerosol inhaler 1 puff inhalation PRN PRN (Reason: Shortness Of Breath) RF: 0 loperamide 2 mg Capsule 2 mg PO PRN PRN (Reason: Diarrhea) RF: 0 cetirizine 10 mg tablet 10 mg PO QPM RF: 0 levothyroxine [Synthroid] 50 mcg tablet 50 mcg PO DAILY RF: 0 pantoprazole 40 mg tablet,delayed release (DR/EC) 40 mg PO QPM RF: 0 fluticasone propionate 50 mcg/actuation spray,suspension 1 spray Intranasal DAILY PRN (Reason: Allergy Symptoms) RF: 0 atenolol 50 mg tablet 50 mg PO DAILY RF: 0 Referrals: Madelyn Mckeon MD [Primary Care Provider] -
[2018-12-21 11:22] LABS: Add Manual Diff / Slide Review NO; Basophils Absolute Auto 100 /uL (0-100); Basophils Percent Auto 1.2 % (0-2); Eosinophils Absolute Auto 200 /uL (0-450); Hematocrit 39.4 % (36-46); Hemoglobin 13.2 g/dL (12.0-16.0); Lymphocytes Absolute Auto 2200 /uL (1100-4500); Lymphocytes Percent Auto 27.2 % (25-40); Mean Corpuscular HGB Conc 33.5 % (30-36); Mean Corpuscular Hemoglobin 29.2 PG (26-34); Mean Corpuscular Volume 87.2 fL (80-100); Monocytes Absolute Auto 700 /uL (0-900); Monocytes Percent Auto 9.2 % (3-14); Neutrophils Absolute Auto 4900 /uL (1500-7000); Neutrophils Percent Auto 60.4 % (50-75); Platelet Count 307 X10^3/uL (150-400); Red Blood Cell Count 4.52 X10^6/uL (4.0-5.2); Red Cell Distribution Width 14.3 % (11.6-14.8); White Blood Cell Count 8.1 X10^3/uL (4.5-11.0)
[2018-12-21 11:33] LABS: Alanine Aminotransferase 26 IU/L (9-52); Albumin 4.2 g/dL (3.5-5.0); Albumin Globulin Ratio 1.1 (1.0-2.8); Alkaline Phosphatase 73 U/L (38-126); Aspartate Aminotransferase 32 IU/L (14-36); BUN Creatinine Ratio 23.3 (6-22); Bilirubin Total 0.6 mg/dL (0.2-1.3); Blood Urea Nitrogen 14 mg/dL (7-17); Calcium 9.4 mg/dL (8.4-10.2); Carbon Dioxide 24 mmol/L (22-32); Chloride 107 mmol/L (98-107); Creatine Kinase 51 U/L (30-135); Estimated Glomerular Filt Rate > 60.0 mL/min (>60); Globulin 3.8 g/dL (1.7-4.1); Glucose 93 mg/dL (80-110); Lipase 94 U/L (23-300); Potassium 4.7 mmol/L (3.4-5.1); Sodium 139 mmol/L (137-145)
[2018-12-21] MEDS: KETOROLAC 60 MG/2 ML VIAL 30 MG IV (11:33)
[2018-12-21 11:39] VITALS: BP 130/73; PULSE 67; RESP 11; O2SAT 99
[2018-12-21 11:44] LABS: Troponin I < 0.012 ng/mL (0.01-0.034)
[2018-12-21 11:45] LABS: HEMOLYSIS 68 (0-50)
[2018-12-21 12:25] VITALS: BP 115/57; PULSE 62; RESP 14; O2SAT 100
[2018-12-21 12:45] VITALS: BP 124/63; PULSE 64; RESP 18; O2SAT 98
== END 2018-12-21 12:45 | disposition home or self-care (01) ==
PROVIDERS: Emergency Provider Emergency Medicine; Family Provider Internal Medicine; PCP Internal Medicine
DX: M54.6 Pain in thoracic spine (principal); Z87.898 Personal history of other specified conditions
CPT/HCPCS: 36591; 71046; 76700; 80053; 81003; 82550; 83690; 84484; 85025; 93005; 96374; 99283; 99285; J1885

== ENCOUNTER 2019-09-04 11:19 | Observation (INO) | payer MEDICARE, OTHER, SELFPAY ==
[2019-09-04] VITALS (10 sets, daily range): BP systolic 102–150; BP diastolic 60–81; PULSE 62–74; RESP 12–20; TEMP 35.6–37.2; O2SAT 92–100; BMI 32.9
--- NOTE | 2019-09-04 11:25 | DI.RAD.S_ITS ---
PROCEDURE: XR CHEST 1V INDICATIONS: chest pain TECHNIQUE: One view of the chest was acquired. COMPARISON: [facility], , XR CHEST 2V, 12/21/2018, 10:39. [facility], , CHEST 2 VIEW, 11/14/2016, 19:37. FINDINGS: Surgical changes and devices: None. Lungs and pleura: Lungs are clear. No pleural effusions or pneumothorax. Mediastinum: Mediastinal contours appear normal. Heart size is normal. Bones and chest wall: No suspicious bony lesions. Overlying soft tissues appear unremarkable. IMPRESSION: Normal for age, source of current chest pain symptoms is not seen. Dictated by: Goyo Mackey M.D. on 09/04/2019 at 12:55 Approved by: Goyo Mackey M.D. on 09/04/2019 at 12:55
[2019-09-04 11:39] LABS: Bacteria Urine None Seen; WBC Urine None Seen (0-5/HPF)
--- NOTE | 2019-09-04 11:43 | PC.NURSE ---
by joo arriaga rn
[2019-09-04 11:44] LABS: Appearance Urine UA CLEAR; Bilirubin Urine UA NEGATIVE (NEGATIVE); Color Urine UA YELLOW; Glucose Urine UA NEGATIVE (Negative); Ketones Urine UA NEGATIVE (NEGATIVE); Leukocyte Esterase Urine UA NEGATIVE (NEGATIVE); Nitrite Urine UA NEGATIVE (Negative); Occult Blood Urine UA NEGATIVE (Negative); Protein Urine UA NEGATIVE (Negative); Urobilinogen Urine UA 0.2 E.U./dL (0.2)
[2019-09-04 11:58] LABS: INR 1.1 (0.9-1.3); Prothrombin Time 12.5 SECONDS (10.1-12.7)
[2019-09-04 12:00] LABS: PTT Partial Thromboplastin Tim 30 SECONDS (26.4-36.2)
[2019-09-04 12:01] LABS: Add Manual Diff / Slide Review NO; Basophils Absolute Auto 100 /uL (0-100); Basophils Percent Auto 0.7 % (0-2); Eosinophils Absolute Auto 0 /uL (0-450); Eosinophils Percent Auto 0.6 % (2-4); Hemoglobin 13.3 g/dL (12.0-16.0); Lymphocytes Absolute Auto 1700 /uL (1100-4500); Lymphocytes Percent Auto 22.9 % (25-40); Mean Corpuscular HGB Conc 33.2 % (30-36); Mean Corpuscular Hemoglobin 29.6 PG (26-34); Mean Corpuscular Volume 89.2 fL (80-100); Monocytes Absolute Auto 600 /uL (0-900); Monocytes Percent Auto 7.8 % (3-14); Neutrophils Absolute Auto 5000 /uL (1500-7000); Platelet Count 309 X10^3/uL (150-400); Red Blood Cell Count 4.48 X10^6/uL (4.0-5.2); Red Cell Distribution Width 13.9 % (11.6-14.8); White Blood Cell Count 7.3 X10^3/uL (4.5-11.0)
[2019-09-04 12:02] LABS: Alanine Aminotransferase 25 IU/L (<35); Albumin 4.4 g/dL (3.5-5.0); Albumin Globulin Ratio 1.2 (1.0-2.8); Alkaline Phosphatase 82 U/L (38-126); Aspartate Aminotransferase 30 IU/L (14-36); Bilirubin Total 0.4 mg/dL (0.2-1.3); Blood Urea Nitrogen 12 mg/dL (7-17); Calcium 9.7 mg/dL (8.4-10.2); Carbon Dioxide 27 mmol/L (22-32); Chloride 104 mmol/L (98-107); Creatine Kinase 38 U/L (30-135); Estimated Glomerular Filt Rate > 60.0 mL/min (>60); Globulin 3.7 g/dL (1.7-4.1); Glucose 102 mg/dL (80-110); HEMOLYSIS < 15 (0-50); Lipase 168 U/L (23-300); Potassium 4.4 mmol/L (3.4-5.1); Sodium 139 mmol/L (137-145); Total Protein 8.1 g/dL (6.3-8.2)
[2019-09-04 12:13] LABS: Troponin I < 0.012 ng/mL (0.01-0.034)
[2019-09-04 12:15] LABS: RBC Urine 0-1/HPF (0-5/HPF); Squamous Epithelial Cell Urine 1-5 /HPF (0-5/HPF); pH Urine UA 7.5 (4.5-8.0)
[2019-09-04 12:16] LABS: Culture Indicated Urine Cult Not Indicated
--- NOTE | 2019-09-04 13:44 | PC.NURSE ---
Pt requests to speak with DR before IV start. Pt states feeling improved.
--- NOTE | 2019-09-04 13:51 | ED.CHESTPAIN ---
HPI - Chest Pain General Chief Complaint: Chest Pain Stated Complaint: heart problems/pain,nausea,shaky,light headed Time Seen by Provider: 09/04/19 13:50 Source: patient Mode of arrival: Ambulatory Limitations: no limitations History of Present Illness HPI narrative: This is a 64-year-old female comes in with complaint of chest pain that started her back and radiates towards her front. Patient states she has a history of GERD but she states this felt differently also went up to her neck. One 8 she had some spasms in her back that resolved. She decreased the [place] acid that she is eating she felt like her grade was better but this morning she had a headache jaw pain left shoulder pain and anterior chest pain and felt very shaky and nauseated. Symptoms have resolved and she denies any back pain or pressure. Patient is on atenolol but she states that is for benign tachycardia and she was told she does not have hypertension. GERD, hypothyroidism with a history of partial thyroidectomy, Zyrtec and Flonase. She had a cholecystectomy, hysterectomy, shoulder surgery ankle tendon repair. With a stress test 10 years ago. Patient denies tobacco rare alcohol, no illicit. Mom and dad both had over hypertension, she has 3 siblings they all of alcohol issues. Related Data Home Medications Medication Instructions Recorded Confirmed atenolol 50 mg PO DAILY 05/17/18 09/04/19 cetirizine 10 mg PO QPM 05/17/18 09/04/19 fluticasone propionate 1 spray INTRANASAL DAILY PRN 05/17/18 09/04/19 levothyroxine [Synthroid] 50 mcg PO DAILY 05/17/18 09/04/19 pantoprazole 40 mg PO QPM 05/17/18 09/04/19 albuterol sulfate [ProAir HFA] 1 puff INHALATION PRN PRN 12/21/18 09/04/19 loperamide 2 mg PO PRN PRN 12/21/18 09/04/19 levothyroxine [Synthroid] 25 mcg PO SEEINSTR 09/04/19 09/04/19 Allergies Allergy/AdvReac Type Severity Reaction Status Date / Time Penicillins [PENICILLINS] Allergy Mild RASH Verified 09/04/19 11:38 doxycycline [DOXYCYCLINE] Allergy Unknown Verified 09/04/19 11:38 erythromycin base Allergy Unknown Verified 09/04/19 11:38 [ERYTHROMYCIN BASE] fluconazole [FLUCONAZOLE] Allergy Unknown Verified 09/04/19 11:38 metoclopramide Allergy Unknown Verified 09/04/19 11:38 [METOCLOPRAMIDE] Sulfa (Sulfonamide Allergy Unknown Verified 09/04/19 11:38 Antibiotics) tetracycline [TETRACYCLINE] Allergy Unknown Verified 09/04/19 11:38 Review of Systems Review of Systems ROS Unobtainable: All systems reviewed & are unremarkable except as noted in HPI and below Patient History Social History household members: spouse Smoking Status: Never smoker alcohol intake: current substance use type: does not use Smoking Status: Never smoker alcohol intake frequency: a few times a month Alcohol type: wine Substance Use Type: does not use Exam Narrative Exam Narrative: GENERAL: Alert and oriented x three, obese, well-appearing female in mild distress. HEENT: Head normocephalic, atraumatic, EOMI, pupils reactive, face symmetric, moist mucous membranes NECK: Supple, full range of motion CARDIOVASCULAR: Regular rate and rhythm without murmurs, rubs or gallops. No JVD. 2+ pulses upper extremities. RESPIRATORY: Breath sounds equal bilaterally, no wheezes rales or rhonchi. ABDOMEN: Soft, nontender. No bruit or pulsatile mass. Normoactive bowel sounds all 4 quadrants. No guarding or rebound, rigidity, no mass : No CVA tenderness EXTREMITIES: Normal range of motion, no clubbing or edema. Neurovascularly intact NEUROLOGICAL: Cranial nerves II through XII grossly intact. Moving all extremities SKIN: Warm, dry, no petechiae, no rashes or lesions. Initial Vital Signs Initial Vital Signs: Vital Signs Temperature 96.1 F L 09/04/19 11:20 Pulse Rate 72 09/04/19 11:20 Respiratory Rate 18 09/04/19 11:20 Blood Pressure 142/81 H 09/04/19 11:20 Pulse Oximetry 98 09/04/19 11:20 Scores HEART Score Heart Score history: Moderately Suspicious Heart Score EKG: Normal Heart Score Age: > or = 65 years old Heart Score risk factors: 1-2 risk factors Heart Score troponin: < or = to normal limit Heart Score Total: 4 Course Orders Ordered: ED Orders 09/04/19 11:25 XR chest 1V Stat 09/04/19 11:26 UA Complete [Urinalysis and Microscopic] Stat 09/04/19 11:31 EKG-12 Lead Stat 09/04/19 11:44 Complete Blood Count AUTO DIFF Stat Comprehensive Metabolic Panel Stat Lipase Stat Partial Thromboplastin Time Stat Prothrombin Time INR Stat Troponin & CK Cardiac Panel Stat Discontinued Medications Aspirin (Aspirin Chew) 324 mg PO NOW ONE Stop: 09/04/19 14:22 Last Admin: 09/04/19 14:51 Dose: 324 mg Documented by: BÁRBARA Pantoprazole Sodium (Protonix) 40 mg IV NOW ONE Stop: 09/04/19 14:22 Last Admin: 09/04/19 14:51 Dose: 40 mg Documented by: BÁRBARA Vital Signs Vital signs: Vital Signs - 8 hr 09/04/19 11:20 09/04/19 13:42 09/04/19 14:00 Temperature 96.1 F L Pulse Rate 72 63 62 Respiratory Rate 18 18 12 Blood Pressure 142/81 H Blood Pressure [Left Arm] 133/80 140/63 Pulse Oximetry 98 98 100 09/04/19 15:00 Temperature Pulse Rate 73 Respiratory Rate 17 Blood Pressure Blood Pressure [Left Arm] 150/66 H Pulse Oximetry 100 MDM - Chest Pain Lab Data Attestation: I reviewed the patient's lab results. Result diagrams: 09/04/19 11:44 09/04/19 11:44 Labs: Lab Results 09/04/19 09/04/19 09/04/19 Range/Units 11:26 11:44 11:44 WBC 7.3 (4.5-11.0) X10^3/uL RBC 4.48 (4.0-5.2) X10^6/uL Hgb 13.3 (12.0-16.0) g/dL Hct 40.0 (36-46) % MCV 89.2 (80-100) fL MCH 29.6 (26-34) PG MCHC 33.2 (30-36) % RDW 13.9 (11.6-14.8) % Plt Count 309 (150-400) X10^3/uL Neut % (Auto) 68.0 (50-75) % Lymph % (Auto) 22.9 L (25-40) % [place] % (Auto) 7.8 (3-14) % Eos % (Auto) 0.6 L (2-4) % Baso % (Auto) 0.7 (0-2) % Neut # (Auto) 5000 (9340-9313) /uL Lymph # (Auto) 1700 (8755-1741) /uL [place] # (Auto) 600 (0-900) /uL Eos # (Auto) 0 (0-450) /uL Baso # (Auto) 100 (0-100) /uL PT 12.5 (10.1-12.7) SECONDS INR 1.1 (0.9-1.3) APTT 30 (26.4-36.2) SECONDS Sodium (137-145) mmol/L Potassium (3.4-5.1) mmol/L Chloride (98-107) mmol/L Carbon Dioxide (22-32) mmol/L BUN (7-17) mg/dL Creatinine (0.52-1.04) mg/dL Estimated GFR (>60) mL/min BUN/Creatinine Ratio (6-22) Glucose (80-110) mg/dL Calcium (8.4-10.2) mg/dL Total Bilirubin (0.2-1.3) mg/dL AST (14-36) IU/L ALT (<35) IU/L Alkaline Phosphatase (38-126) U/L Total Creatine Kinase (30-135) U/L CK-MB (CK-2) CK-MB (CK-2) Rel Index Troponin I (0.01-0.034) ng/mL Total Protein (6.3-8.2) g/dL Albumin (3.5-5.0) g/dL Globulin (1.7-4.1) g/dL Albumin/Globulin Ratio (1.0-2.8) Lipase (23-300) U/L Urine Color Yellow Urine Appearance Clear Urine pH 7.5 (4.5-8.0) Ur Specific [place] 1.010 (1.000-1.035) Urine Protein Negative (Negative) Urine Glucose (UA) Negative (Negative) g/dL Urine Ketones Negative (NEGATIVE) Urine Occult Blood Negative (Negative) Urine Nitrate Negative (Negative) Urine Bilirubin Negative (NEGATIVE) Urine Urobilinogen 0.2 (0.2) E.U./dL Ur Leukocyte Esterase Negative (NEGATIVE) Urine RBC 0-1/hpf (0-5/HPF) Urine WBC None seen (0-5/HPF) Ur Squamous Epith Cells 1-5 /hpf (0-5/HPF) Urine Bacteria None seen (None) Ur Culture Indicated? Cult not indicated Micro UA Comment 09/04/19 Range/Units 11:44 WBC (4.5-11.0) X10^3/uL RBC (4.0-5.2) X10^6/uL Hgb (12.0-16.0) g/dL Hct (36-46) % MCV (80-100) fL MCH (26-34) PG MCHC (30-36) % RDW (11.6-14.8) % Plt Count (150-400) X10^3/uL Neut % (Auto) (50-75) % Lymph % (Auto) (25-40) % [place] % (Auto) (3-14) % Eos % (Auto) (2-4) % Baso % (Auto) (0-2) % Neut # (Auto) (5503-4566) /uL Lymph # (Auto) (0075-7592) /uL [place] # (Auto) (0-900) /uL Eos # (Auto) (0-450) /uL Baso # (Auto) (0-100) /uL PT (10.1-12.7) SECONDS INR (0.9-1.3) APTT (26.4-36.2) SECONDS Sodium 139 (137-145) mmol/L Potassium 4.4 (3.4-5.1) mmol/L Chloride 104 (98-107) mmol/L Carbon Dioxide 27 (22-32) mmol/L BUN 12 (7-17) mg/dL Creatinine 0.60 (0.52-1.04) mg/dL Estimated GFR > 60.0 (>60) mL/min BUN/Creatinine Ratio 20.0 (6-22) Glucose 102 (80-110) mg/dL Calcium 9.7 (8.4-10.2) mg/dL Total Bilirubin 0.4 (0.2-1.3) mg/dL AST 30 (14-36) IU/L ALT 25 (<35) IU/L Alkaline Phosphatase 82 (38-126) U/L Total Creatine Kinase 38 (30-135) U/L CK-MB (CK-2) TNP CK-MB (CK-2) Rel Index TNP Troponin I < 0.012 (0.01-0.034) ng/mL Total Protein 8.1 (6.3-8.2) g/dL Albumin 4.4 (3.5-5.0) g/dL Globulin 3.7 (1.7-4.1) g/dL Albumin/Globulin Ratio 1.2 (1.0-2.8) Lipase 168 (23-300) U/L Urine Color Urine Appearance Urine pH (4.5-8.0) Ur Specific [place] (1.000-1.035) Urine Protein (Negative) Urine Glucose (UA) (Negative) g/dL Urine Ketones (NEGATIVE) Urine Occult Blood (Negative) Urine Nitrate (Negative) Urine Bilirubin (NEGATIVE) Urine Urobilinogen (0.2) E.U./dL Ur Leukocyte Esterase (NEGATIVE) Urine RBC (0-5/HPF) Urine WBC (0-5/HPF) Ur Squamous Epith Cells (0-5/HPF) Urine Bacteria (None) Ur Culture Indicated? Micro UA Comment Imaging Data Chest x-ray: Radiologist's Impression: [address] [id number] XRay Report Signed Patient: Martha Canales QMR#: [id number] : 3Acct:[id number] Age/Sex: 64 / FDate of Service: 09/04/19 Loc: ED Accession Number: [id number] Procedure: XR chest 1V Ordering Provider: Cathy Barton D.O. PROCEDURE: XR CHEST 1V INDICATIONS: chest pain TECHNIQUE: One view of the chest was acquired. COMPARISON: [facility], XR CHEST 2V, 12/21/2018, 10:39. [facility], CHEST 2 VIEW, 11/14/2016, 19:37. FINDINGS: Surgical changes and devices: None. Lungs and pleura: Lungs are clear. No pleural effusions or pneumothorax. Mediastinum: Mediastinal contours appear normal. Heart size is normal. Bones and chest wall: No suspicious bony lesions. Overlying soft tissues appear unremarkable. IMPRESSION: Normal for age, source of current chest pain symptoms is not seen. Dictated by: Goyo Mackey M.D. on 09/04/2019 at 12:55 Approved by: Goyo Mackey M.D. on 09/04/2019 at 12:55 ECG Data Attestation: I personally reviewed and interpreted this ECG as follows: Interpretation: Normal sinus rhythm no ST elevation/depression. Rate of 73, [place] 186 QRS is 78 QTC of 440. Prior EKG from 12/21 appears similar. MDM Narrative Medical decision making narrative: Patient's EKG shows no acute findings. She is has a negative troponin but concerning history. She has some obesity, she is on atenolol but states for benign tachycardia not for hypertension. She had her last stress test was 10 years ago and her symptoms are not as consistent with GERD. Discussed with patient offered observation and feel that it would be appropriate at this time, patient states she is chest pain-free at this time. She was given aspirin 324 mg and Protonix as she states she does have bad heartburn. Spoke with the hospitalist, Dr. Monroy she accepts for observation. Discharge Plan Departure Patient Disposition: Admitted as Observation Clinical Impression: Chest pain Discharge Date/Time: 09/04/19 16:41 Referrals: Madelyn Mckeon MD [Primary Care Provider] - Admit Date/Time: 09/04/19 15:00 Admit Provider: Ivy Monroy
[2019-09-04] MEDS: ASPIRIN 81 MG CHEW TAB 324 MG PO (14:51)
[2019-09-04] MEDS: PANTOPRAZOLE 40 MG VIAL IV (14:51)
[2019-09-04 18:25] LABS: Creatine Kinase 37 U/L (30-135)
[2019-09-04 18:37] LABS: Troponin I < 0.012 ng/mL (0.01-0.034)
[2019-09-04] MEDS: HEPARIN 5,000 UNIT/ML VIAL 5000 UNIT SUBCUT (22:05)
[2019-09-04] MEDS: SODIUM CHLORIDE 0.9% 1,000 ML 75 ML IV (22:08)
[2019-09-04] MEDS: ACETAMINOPHEN 325 MG TABLET 975 MG PO (22:08)
[2019-09-05 00:20] VITALS: BP 126/90; PULSE 69; RESP 16; TEMP 36.4; O2SAT 97
[2019-09-05] MEDS: raNITIdine 150 MG CAPSULE 300 MG PO (00:22)
--- NOTE | 2019-09-05 00:22 | PM.HP.1 ---
History of Present Illness History of Present Illness Date Patient Seen: 09/04/19 Time Patient Seen: 20:35 Chief complaint: heart problems/pain,nausea,shaky,light headed Patient History Family & Social History Social History: household members spouse Prior Living Arrangements House Safety & Behavioral: Feels Safe in Current Yes Environment Been Physically Hurt or No Threatened By a Person Suicidal Ideation Description None Suicide Plan Description No Plan Tobacco & Substance use: Smoking Status Never smoker alcohol intake current alcohol intake frequency a few times a month Substance Use Type does not use Meds Home Medications and Allergies Home Medications Medication Instructions Recorded Confirmed Type atenolol 50 mg PO DAILY 05/17/18 09/04/19 History cetirizine 10 mg PO QPM 05/17/18 09/04/19 History fluticasone propionate 1 spray INTRANASAL DAILY PRN 05/17/18 09/04/19 History levothyroxine [Synthroid] 50 mcg PO DAILY 05/17/18 09/04/19 History pantoprazole 40 mg PO QPM 05/17/18 09/04/19 History albuterol sulfate [ProAir HFA] 1 puff INHALATION PRN PRN 12/21/18 09/04/19 History loperamide 2 mg PO PRN PRN 12/21/18 09/04/19 History levothyroxine [Synthroid] 25 mcg PO SEEINSTR 09/04/19 09/04/19 History Allergies Allergy/AdvReac Type Severity Reaction Status Date / Time Penicillins [PENICILLINS] Allergy Mild RASH Verified 09/04/19 11:38 doxycycline [DOXYCYCLINE] Allergy Unknown Verified 09/04/19 11:38 erythromycin base Allergy Unknown Verified 09/04/19 11:38 [ERYTHROMYCIN BASE] fluconazole [FLUCONAZOLE] Allergy Unknown Verified 09/04/19 11:38 metoclopramide Allergy Unknown Verified 09/04/19 11:38 [METOCLOPRAMIDE] Sulfa (Sulfonamide Allergy Unknown Verified 09/04/19 11:38 Antibiotics) tetracycline [TETRACYCLINE] Allergy Unknown Verified 09/04/19 11:38 Exam Vital Signs (past 8 hours): - 09/04/19 16:30 09/04/19 16:45 09/04/19 21:21 Temperature 98.9 F 98.5 F Pulse Rate 65 74 72 Respiratory Rate 16 20 18 Blood Pressure 102/60 126/77 Blood Pressure [Left Arm] 134/65 Pulse Oximetry 98 99 09/04/19 21:54 Temperature Pulse Rate 73 Respiratory Rate Blood Pressure Blood Pressure [Left Arm] Pulse Oximetry 97 Oxygen Delivery Method Room Air Oxygen Flow Rate 0 Objective Labs Result Diagrams: 09/04/19 11:44 09/04/19 11:44 Labs: Laboratory Results - last 24 hr 09/04/19 09/04/19 09/04/19 11:26 11:44 11:44 WBC 7.3 RBC 4.48 Hgb 13.3 Hct 40.0 MCV 89.2 MCH 29.6 MCHC 33.2 RDW 13.9 Plt Count 309 Neut % (Auto) 68.0 Lymph % (Auto) 22.9 L [place] % (Auto) 7.8 Eos % (Auto) 0.6 L Baso % (Auto) 0.7 Neut # (Auto) 5000 Lymph # (Auto) 1700 [place] # (Auto) 600 Eos # (Auto) 0 Baso # (Auto) 100 PT 12.5 INR 1.1 APTT 30 Sodium Potassium Chloride Carbon Dioxide BUN Creatinine Estimated GFR BUN/Creatinine Ratio Glucose Calcium Magnesium Total Bilirubin AST ALT Alkaline Phosphatase Total Creatine Kinase CK-MB (CK-2) CK-MB (CK-2) Rel Index Troponin I Total Protein Albumin Globulin Albumin/Globulin Ratio Lipase Urine Color Yellow Urine Appearance Clear Urine pH 7.5 Ur Specific [place] 1.010 Urine Protein Negative Urine Glucose (UA) Negative Urine Ketones Negative Urine Occult Blood Negative Urine Nitrate Negative Urine Bilirubin Negative Urine Urobilinogen 0.2 Ur Leukocyte Esterase Negative Urine RBC 0-1/hpf Urine WBC None seen Ur Squamous Epith Cells 1-5 /hpf Urine Bacteria None seen Ur Culture Indicated? Cult not indicated Micro UA Comment 09/04/19 09/04/19 09/04/19 11:44 17:57 17:57 WBC RBC Hgb Hct MCV MCH MCHC RDW Plt Count Neut % (Auto) Lymph % (Auto) [place] % (Auto) Eos % (Auto) Baso % (Auto) Neut # (Auto) Lymph # (Auto) [place] # (Auto) Eos # (Auto) Baso # (Auto) PT INR APTT Sodium 139 Potassium 4.4 Chloride 104 Carbon Dioxide 27 BUN 12 Creatinine 0.60 Estimated GFR > 60.0 BUN/Creatinine Ratio 20.0 Glucose 102 Calcium 9.7 Magnesium 2.0 Total Bilirubin 0.4 AST 30 ALT 25 Alkaline Phosphatase 82 Total Creatine Kinase 38 37 CK-MB (CK-2) TNP TNP CK-MB (CK-2) Rel Index TNP TNP Troponin I < 0.012 < 0.012 Total Protein 8.1 Albumin 4.4 Globulin 3.7 Albumin/Globulin Ratio 1.2 Lipase 168 Urine Color Urine Appearance Urine pH Ur Specific [place] Urine Protein Urine Glucose (UA) Urine Ketones Urine Occult Blood Urine Nitrate Urine Bilirubin Urine Urobilinogen Ur Leukocyte Esterase Urine RBC Urine WBC Ur Squamous Epith Cells Urine Bacteria Ur Culture Indicated? Micro UA Comment
--- NOTE | 2019-09-05 00:23 | PM.HP.1 ---
History of Present Illness History of Present Illness Date Patient Seen: 09/04/19 Time Patient Seen: 20:45 Chief complaint: heart problems/pain,nausea,shaky,light headed Narrative: Ms. Martha Canales is a 64-year-old female patient with history of symptomatic gastroesophageal reflux disorder, hypothyroidism, tachy arrhythmias controlled with atenolol who presents to the ER for complaints of chest pain. The patient states that her chest pain started in the back and radiated to the front on Monday which was similar to her typical gastric symptoms. She had sought to decreased acid intake and tea. Today the patient developed similar symptoms with headache, jaw pain, left shoulder and chest pain associated with shakiness and nausea. The patient endorses great deal of stress over the last week that she feels has worsened her symptoms. She does have a history of degenerative disc disease with chronic neck pain and reports associated occipital headache. Patient has a history of tachyarrhythmias and reports no significant symptoms now but does have palpitations that her fleeting lasting a few seconds. She had a cardiac workup 12 years ago at which time she was started on atenolol for arrhythmia management. The patient denies fevers or chills, dizziness, visual changes or diaphoresis.. She reports no nasal congestion or sore throat. She has no complaints of shortness of breath cough or wheezing. She has had chronic epigastric discomfort from GERD. She has had nausea but no vomiting. She had episode of diarrhea today that she associates with anxiety. She denies changes in bladder habits. The patient is independent in all activities of daily living and uses no assistive devices. Upon arrival to the ER the patient has temperature 96.1?, heart rate of 72, blood pressure 142/81, respirations of 18 and oxygen of 98% on room air. An EKG is obtained which finds normal sinus rhythm without ectopy, ST or T-wave changes, unchanged from prior tracing. Chest x-rays obtained and read as normal for age with a normal heart size. Patient has a PT of 12.5, INR 1.1 and PTT of 30. She has normal electrolytes with a BUN of 12 and creatinine is 0.6 and has of nonfasting glucose 102. Her LFTs are all within normal limits. He has a total CK of 37 and a troponin of less than 0.012 x 2. Her urinalysis is unremarkable and negative for infection. The patient's symptoms abated in the ER. She received aspirin 325 mg and 40 mg of Protonix. The patient is admitted to medicine service for for cardiac monitoring and rule out ACS. Patient History Medical History Degenerative disc disease (Chronic) GERD (gastroesophageal reflux disease) (Chronic) Hypothyroidism (Chronic) Osteoarthritis of multiple joints (Chronic) Tachycardia, paroxysmal (Chronic) Surgical History H/O partial thyroidectomy (Resolved) Status post cholecystectomy (Resolved) Status post hysterectomy (Resolved) Family & Social History Family History (Updated 09/05/19 @ 05:14 by AMBER Hinds) Father Hypertension Smoker in home Cancer Mother Smoker in home Hypertension Cancer Social History: household members spouse Prior Living Arrangements House Safety & Behavioral: Feels Safe in Current Yes Environment Been Physically Hurt or No Threatened By a Person Suicidal Ideation Description None Suicide Plan Description No Plan Tobacco & Substance use: Smoking Status Never smoker alcohol intake current alcohol intake frequency a few times a month Substance Use Type does not use Comment: The patient lives in a single family 2 level home with her to whom she has been for 45 years. They are both minutes stirs. She endorses a history of her mother and father both having cancer, hypertension and both heavy smokers. She has 3 brothers who she describes as heavy drinkers. She has 3 daughters whom she describes is in good health. 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 Smoking: The patient is a nonsmoker does not used tobacco products. She has had secondhand smoke exposure. Alcohol: Patient endorses consuming 2 drinks per month. Substance use: The patient denies recreation pharmaceuticals herbal or cannabis products. Advanced directives: The patient has formal advanced directives and states her wish to be FULL CODE. She designates her to be her surrogate decision maker. Meds Home Medications and Allergies Home Medications Medication Instructions Recorded Confirmed Type atenolol 50 mg PO DAILY 05/17/18 09/04/19 History cetirizine 10 mg PO QPM 05/17/18 09/04/19 History fluticasone propionate 1 spray INTRANASAL DAILY PRN 05/17/18 09/04/19 History levothyroxine [Synthroid] 50 mcg PO DAILY 05/17/18 09/04/19 History pantoprazole 40 mg PO QPM 05/17/18 09/04/19 History albuterol sulfate [ProAir HFA] 1 puff INHALATION PRN PRN 12/21/18 09/04/19 History loperamide 2 mg PO PRN PRN 12/21/18 09/04/19 History levothyroxine [Synthroid] 25 mcg PO SEEINSTR 09/04/19 09/04/19 History Allergies Allergy/AdvReac Type Severity Reaction Status Date / Time Penicillins [PENICILLINS] Allergy Mild RASH Verified 09/04/19 11:38 doxycycline [DOXYCYCLINE] Allergy Unknown Verified 09/04/19 11:38 erythromycin base Allergy Unknown Verified 09/04/19 11:38 [ERYTHROMYCIN BASE] fluconazole [FLUCONAZOLE] Allergy Unknown Verified 09/04/19 11:38 metoclopramide Allergy Unknown Verified 09/04/19 11:38 [METOCLOPRAMIDE] Sulfa (Sulfonamide Allergy Unknown Verified 09/04/19 11:38 Antibiotics) tetracycline [TETRACYCLINE] Allergy Unknown Verified 09/04/19 11:38 Review of Systems Review of Systems ROS: Yes All systems reviewed with the patient and are negative except as otherwise documented Exam Vital Signs (past 8 hours): - 09/04/19 16:30 09/04/19 16:45 09/04/19 21:21 Temperature 98.9 F 98.5 F Pulse Rate 65 74 72 Respiratory Rate 16 20 18 Blood Pressure 102/60 126/77 Blood Pressure [Left Arm] 134/65 Pulse Oximetry 98 99 09/04/19 21:54 Temperature Pulse Rate 73 Respiratory Rate Blood Pressure Blood Pressure [Left Arm] Pulse Oximetry 97 Oxygen Delivery Method Room Air Oxygen Flow Rate 0 Narrative Exam Narrative: GENERAL APPEARANCE: well developed, well nourished, in no acute distress. HEENT: Normocephalic, PERRLA, conjunctiva clear, sclera is anicteric, EOMs intact without nystagmus, no sinus tenderness to percussion, no rhinorrhea, mucous membranes are moist and pink without lesions or exudate. NECK/THYROID: neck supple, no JVD, no carotid bruit, no thyromegaly, trachea midline. LYMPH NODES: no cervical or supraclavicular lymphadenopathy. SKIN: [place], warm and dry, no visible lesions, rashes, ulcerations or petechiae. HEART: regular rate and rhythm, S1-S2, no murmur, no rubs or gallops, brisk capillary refill, 1+ posterior tibial pulses, no edema LUNGS: clear to auscultation bilaterally, no coarseness crackles or wheezing, no cough present CHEST: Symmetrical movement, no accessory muscle use, good tidal volume. ABDOMEN: Soft, no distention, no abdominal tenderness, no guarding or peritoneal signs, no organomegaly, no flank or suprapubic tenderness, active bowel tones. BACK: Normal curvature, nontender to palpation, no CVA tenderness on percussion, no back pain with straight leg raise. EXTREMITIES: moves all extremities, strength is 5/5 and symmetrical, no deformities or joint effusions. NEUROLOGIC: AAO x4, no focal neurologic deficits, cranial nerves II-XII grossly intact, sensation intact to light touch, hearing grossly normal to speech. PSYCH: Good judgment, good insight, linear thought process, cooperative, appropriate with stable behavior Objective Labs Result Diagrams: 09/04/19 11:44 09/04/19 11:44 Labs: Laboratory Results - last 24 hr 09/04/19 09/04/19 09/04/19 11:26 11:44 11:44 WBC 7.3 RBC 4.48 Hgb 13.3 Hct 40.0 MCV 89.2 MCH 29.6 MCHC 33.2 RDW 13.9 Plt Count 309 Neut % (Auto) 68.0 Lymph % (Auto) 22.9 L [place] % (Auto) 7.8 Eos % (Auto) 0.6 L Baso % (Auto) 0.7 Neut # (Auto) 5000 Lymph # (Auto) 1700 [place] # (Auto) 600 Eos # (Auto) 0 Baso # (Auto) 100 PT 12.5 INR 1.1 APTT 30 Sodium Potassium Chloride Carbon Dioxide BUN Creatinine Estimated GFR BUN/Creatinine Ratio Glucose Calcium Magnesium Total Bilirubin AST ALT Alkaline Phosphatase Total Creatine Kinase CK-MB (CK-2) CK-MB (CK-2) Rel Index Troponin I Total Protein Albumin Globulin Albumin/Globulin Ratio Lipase Urine Color Yellow Urine Appearance Clear Urine pH 7.5 Ur Specific Egan 1.010 Urine Protein Negative Urine Glucose (UA) Negative Urine Ketones Negative Urine Occult Blood Negative Urine Nitrate Negative Urine Bilirubin Negative Urine Urobilinogen 0.2 Ur Leukocyte Esterase Negative Urine RBC 0-1/hpf Urine WBC None seen Ur Squamous Epith Cells 1-5 /hpf Urine Bacteria None seen Ur Culture Indicated? Cult not indicated Micro UA Comment 09/04/19 09/04/19 09/04/19 11:44 17:57 17:57 WBC RBC Hgb Hct MCV MCH MCHC RDW Plt Count Neut % (Auto) Lymph % (Auto) [place] % (Auto) Eos % (Auto) Baso % (Auto) Neut # (Auto) Lymph # (Auto) [place] # (Auto) Eos # (Auto) Baso # (Auto) PT INR APTT Sodium 139 Potassium 4.4 Chloride 104 Carbon Dioxide 27 BUN 12 Creatinine 0.60 Estimated GFR > 60.0 BUN/Creatinine Ratio 20.0 Glucose 102 Calcium 9.7 Magnesium 2.0 Total Bilirubin 0.4 AST 30 ALT 25 Alkaline Phosphatase 82 Total Creatine Kinase 38 37 CK-MB (CK-2) TNP TNP CK-MB (CK-2) Rel Index TNP TNP Troponin I < 0.012 < 0.012 Total Protein 8.1 Albumin 4.4 Globulin 3.7 Albumin/Globulin Ratio 1.2 Lipase 168 Urine Color Urine Appearance Urine pH Ur Specific Egan Urine Protein Urine Glucose (UA) Urine Ketones Urine Occult Blood Urine Nitrate Urine Bilirubin Urine Urobilinogen Ur Leukocyte Esterase Urine RBC Urine WBC Ur Squamous Epith Cells Urine Bacteria Ur Culture Indicated? Micro UA Comment Assessment & Plan Assessment & Plan narrative: This is a 64-year-old female patient with a history significant for gastroesophageal reflux disorder on chronic PPIs that developed a change in symptoms including pain going into the neck, jaw and left shoulder. The patient has had a previous history of tachyarrhythmias with her last cardiac workup 12 years ago. 1. Rule out acute coronary syndrome, acute, present on admission, active. Patient with history of chest pain and epigastric pain with a change in symptomatology consistent with cardiac pain. Patient reports great deal of stress over the last week which can both exacerbate gastric as cardiac symptoms. Twelve lead EKG is reassuring with normal sinus rhythm without ectopy, ST or T-wave changes. Chest x-ray is unremarkable and normal for age with a normal cardiac silhouette. Patient has a CK of 37 and a troponin of 0.012. Second troponin is pending. Continue atenolol 50 mg daily. Order Plavix 75 mg daily to reduce gastric irritation. Ordered nitroglycerin sublingual as needed for chest pain. Ordered morphine 2 mg IV as needed for chest pain. Ordered an echocardiogram. Ordered nuclear med stress test. 2. Gastroesophageal reflux disorder, chronic, present on admission, active. Patient did have nausea but no vomiting, pain radiates to her back. Symptoms have worsened with recent stress. The patient routinely takes Protonix 40 mg daily at bedtime. Patient received Protonix 40 mg in the ER. Ordered ranitidine 300 mg as needed for heartburn. 3. Hypothyroidism, chronic, stable Patient takes levothyroxine 25 mg alternating with 75 mg daily. 4. Environmental allergies, chronic, stable -Patient denies complaints of symptoms at this time. -will continue with albuterol as needed, hold sitters 18 and fluticasone nasal spray. VTE prophylaxis: SCDs, heparin Diet: Heart healthy, NPO midnight for testing IV fluid: Normal saline 100 cc/hour The patient is admitted to the hospital due to the severity of her symptoms in the risk for potential complications or adverse events. The patient is admitted as observation with expected length of stay to be less than 2 midnights.
[2019-09-05 06:07] LABS: Add Manual Diff / Slide Review NO; Basophils Absolute Auto 100 /uL (0-100); Eosinophils Absolute Auto 100 /uL (0-450); Eosinophils Percent Auto 1.6 % (2-4); Hematocrit 37.8 % (36-46); Hemoglobin 12.6 g/dL (12.0-16.0); Lymphocytes Absolute Auto 2600 /uL (1100-4500); Lymphocytes Percent Auto 34.5 % (25-40); Mean Corpuscular HGB Conc 33.3 % (30-36); Mean Corpuscular Hemoglobin 29.6 PG (26-34); Monocytes Absolute Auto 600 /uL (0-900); Monocytes Percent Auto 7.4 % (3-14); Neutrophils Absolute Auto 4200 /uL (1500-7000); Neutrophils Percent Auto 55.5 % (50-75); Platelet Count 286 X10^3/uL (150-400); Red Blood Cell Count 4.24 X10^6/uL (4.0-5.2); Red Cell Distribution Width 13.8 % (11.6-14.8); White Blood Cell Count 7.5 X10^3/uL (4.5-11.0)
[2019-09-05 06:21] LABS: BUN Creatinine Ratio 23.3 (6-22); Blood Urea Nitrogen 14 mg/dL (7-17); Calcium 9.1 mg/dL (8.4-10.2); Carbon Dioxide 28 mmol/L (22-32); Chloride 107 mmol/L (98-107); Cholesterol 189 mg/dL (140-199); Estimated Glomerular Filt Rate > 60.0 mL/min (>60); Glucose 96 mg/dL (80-110); HDL Cholesterol 40 mg/dL (40-60); HEMOLYSIS < 15 (0-50); LDL Cholesterol Calculated 117 mg/dL (<100); Potassium 3.9 mmol/L (3.4-5.1); Sodium 141 mmol/L (137-145); Triglycerides 161 mg/dL (35-150)
[2019-09-05] MEDS: LEVOTHYROXINE 50 MCG TABLET PO (06:21)
[2019-09-05 06:33] VITALS: BP 128/81; PULSE 71; RESP 16; TEMP 36.6; O2SAT 98
[2019-09-05] MEDS: ACETAMINOPHEN 325 MG TABLET 650 MG PO (06:47)
[2019-09-05 06:53] LABS: TSH w/ Reflex to FT4 3.62 uIU/mL (0.47-4.68)
[2019-09-05 07:20] VITALS: BP 136/85; PULSE 68; RESP 18; TEMP 36.6; O2SAT 99
[2019-09-05 07:59] VITALS: O2SAT 96
[2019-09-05] MEDS: atenoloL 25 MG TABLET 50 MG PO (08:58)
[2019-09-05 11:53] VITALS: BMI 33.2
--- NOTE | 2019-09-05 11:55 | DIET.PN ---
Dietary Progress Note Assessment: 64y F admitted to rule out cardiac vs GERD referred to nutrition for symptomatic GERD. Pt taking protonix daily, treats breakthrough sx c Tums when experiencing stress. Pt avoids coffee but no other foods seem to bother her unless stress at which point she avoids citrus, tomatoes, caffeine, etc. Pt had good knowledge base on GERD diet reccs. HT: 162.5cm WT: 87.8kg BMI: 33.2 Labs: TG 161 H, LDL 117 H MNA: 12 normal Ronald: 22 Interventions: 1. If pt interested, can research Acid Watchers Diet to help controlling GERD in addition to her current routine. Diet Order: NPO pending stress test EER: 1800kcal, 70g PRO (0.8g/kg), 2.6L fluids
--- NOTE | 2019-09-05 14:57 | CM.DANOTE ---
Discharge Planning/Care Management DCP: assessment: initiated: Case received, discussed in Team Rounds with Dr. Monroy planning to see pt later today. She gave a referral to Kelin/campus president, who was in Rounds with plan to see pt for GERD A d/c to home setting is now in place. Pt is a 64 year old female who admitted yesterday late afternoon to care of hospitalist team. PCP: Madelyn Mckeon Payer: Medicare and [employer]. Pt and her both work as ministers. PT has now been cleared for home and no needs re the d/c are identified by the care team members. Advanced directive, confirm from FAMILY Start: 09/04/19 17:30 Freq: Q24H Status: Active Protocol: Document 09/04/19 20:43 AK (Rec: 09/04/19 20:44 AK [id number]) Advance Directive, confirm on record Time 20:43 Person contacted pt to inform spouse Copy received No CM Discharge Assessment Start: 09/05/19 14:56 Freq: Status: Active Protocol: Document 09/05/19 14:56 ITV (Rec: 09/05/19 14:57 ITV [id number]) Discharge Planning Assessment Advance Directives? Yes History Provided By Medical Record Prior Living Arrangements House Household Members spouse Is patient alert and oriented? Yes Review Status In Process
--- NOTE | 2019-09-05 15:55 | DI.NM.S_ITS ---
DATE OF SERVICE: 09/05/2019 PROCEDURE PERFORMED:: Exercise treadmill stress only myocardial perfusion imaging study with gating to assess ejection fraction and regional wall motion. ORDERING PROVIDER:: AMBER Hinds. INDICATION:: The patient is a 64-year-old female admitted with atypical chest discomfort. EXERCISE TREADMILL TESTING:: The patient was able to exercise for a total of 4 minutes 30 seconds on a standard [place] protocol, suggesting moderately impaired exercise capacity with an PA of +26%. She had a normal heart rate and blood pressure response to exercise, achieving a maximum heart rate of 135 bpm (88% of her predicted maximum). She had no chest discomfort, but described some mild epigastric discomfort at peak exercise that resolved within 1 minute of rest. Her resting ECG shows sinus rhythm without any significant ST-segment abnormalities. There were no significant ST-segment shifts or arrhythmias with exercise. At 3 minutes 40 seconds of exercise, at a heart rate of 130 bpm, 27.5 mCi of technetium-99m Myoview was injected and the patient was imaged 20 minutes later using a gated SPECT acquisition protocol. Given that the post- stress images reveal no concerning perfusion defect, it was felt that resting images were not necessary. FINDINGS:: 1. Raw data: There is fair myocardial tracer uptake with mild breast shadows noted. Lung-heart ratio is normal at 0.18. 2. Quantitated gated SPECT: Post-stress ejection fraction is estimated at 72% without any focal wall motion abnormality. 3. Myocardial perfusion imaging: Post-stress supine images shows a fairly normal myocardial perfusion pattern without any concerning perfusion defects, supported by normal perfusion imaging in the prone position. Given this, it was felt that resting images were not needed. CONCLUSION: 1. Normal myocardial perfusion study. 2. No evidence for myocardial ischemia or previous myocardial infarction. 3. Normal left ventricular systolic function without focal wall motion abnormality. 4. Moderately impaired exercise capacity without angina or ECG evidence of ischemia, although with some mild epigastric discomfort at peak exercise that promptly resolved. Martha Canales - RAMAN/jose luis/kelvin doc#: [id number]/job#: [id number] dd: 09/05/2019 12:54:00 dt: 09/05/2019 15:30:00 DICTATING MD/COPIES TO: Yoan Fraser MD; AMBER Hinds COPIES MNE: CHRISTINE;
--- NOTE | 2019-09-05 19:41 | PM.DS.1 ---
History of Present Illness History of Present Illness Chief complaint: heart problems/pain,nausea,shaky,light headed Narrative: Ms. Martha Canales is a 64-year-old female patient with history of symptomatic gastroesophageal reflux disorder, hypothyroidism, tachy arrhythmias controlled with atenolol who presents to the ER for complaints of chest pain. The patient states that her chest pain started in the back and radiated to the front on Monday which was similar to her typical gastric symptoms. She had sought to decreased acid intake and tea. Today the patient developed similar symptoms with headache, jaw pain, left shoulder and chest pain associated with shakiness and nausea. The patient endorses great deal of stress over the last week that she feels has worsened her symptoms. She does have a history of degenerative disc disease with chronic neck pain and reports associated occipital headache. Patient has a history of tachyarrhythmias and reports no significant symptoms now but does have palpitations that her fleeting lasting a few seconds. She had a cardiac workup 12 years ago at which time she was started on atenolol for arrhythmia management. The patient denies fevers or chills, dizziness, visual changes or diaphoresis.. She reports no nasal congestion or sore throat. She has no complaints of shortness of breath cough or wheezing. She has had chronic epigastric discomfort from GERD. She has had nausea but no vomiting. She had episode of diarrhea today that she associates with anxiety. She denies changes in bladder habits. The patient is independent in all activities of daily living and uses no assistive devices. Upon arrival to the ER the patient has temperature 96.1?, heart rate of 72, blood pressure 142/81, respirations of 18 and oxygen of 98% on room air. An EKG is obtained which finds normal sinus rhythm without ectopy, ST or T-wave changes, unchanged from prior tracing. Chest x-rays obtained and read as normal for age with a normal heart size. Patient has a PT of 12.5, INR 1.1 and PTT of 30. She has normal electrolytes with a BUN of 12 and creatinine is 0.6 and has of nonfasting glucose 102. Her LFTs are all within normal limits. He has a total CK of 37 and a troponin of less than 0.012 x 2. Her urinalysis is unremarkable and negative for infection. The patient's symptoms abated in the ER. She received aspirin 325 mg and 40 mg of Protonix. The patient is admitted to medicine service for for cardiac monitoring and rule out ACS. Discharge Providers Provider Date of admission: 09/04/19 15:00 Discharge Date: 09/05/19 Primary care physician: Madelyn Mckeon MD Consults: 09/04/19 20:11 Consult to Dietitian, Adult Routine Comment: Reason For Exam: Symptomatic GERD Consult to Discharge Planning Routine Comment: Discharge provider: Constantine Whittington MD Summary Hospital Course Discharge Diagnosis: 1. Chest pain, noncardiac 2. GERD Hospital Course: Patient had serial negative troponin and normal telemetry. She had stress Mibi which showed poor exercise tolerance but no areas of ischemia. She does not need to return for resting portion. Patient has long history of acid reflux which is likely source of her chest pain episode. She is already on daily pantoprazole. We reviewed dietary recommendations for acid reflux. She can take an extra pantoprazole for breakthrough symptoms. Status at Discharge Cognitive/behavioral status at discharge: oriented Functional status at discharge: independent ambulation Overall status at discharge: patient is back to baseline Time Spent with Patient Time spent: Less than 30 minutes Exam Vital Signs (past 8 hours): Oxygen Delivery Method Room Air Oxygen Flow Rate 0 Objective Labs Result Diagrams: 09/05/19 05:44 09/05/19 05:44 Labs: Laboratory Results - last 24 hr 09/04/19 09/05/19 09/05/19 17:57 05:44 05:44 WBC 7.5 RBC 4.24 Hgb 12.6 Hct 37.8 MCV 89.0 MCH 29.6 MCHC 33.3 RDW 13.8 Plt Count 286 Neut % (Auto) 55.5 Lymph % (Auto) 34.5 Person % (Auto) 7.4 Eos % (Auto) 1.6 L Baso % (Auto) 1.0 Neut # (Auto) 4200 Lymph # (Auto) 2600 Person # (Auto) 600 Eos # (Auto) 100 Baso # (Auto) 100 Sodium 141 Potassium 3.9 Chloride 107 Carbon Dioxide 28 BUN 14 Creatinine 0.60 Estimated GFR > 60.0 BUN/Creatinine Ratio 23.3 H Glucose 96 Calcium 9.1 Magnesium 2.0 Triglycerides 161 H Cholesterol 189 LDL Cholesterol, Calc 117 H HDL Cholesterol 40 TSH 09/05/19 05:44 WBC RBC Hgb Hct MCV MCH MCHC RDW Plt Count Neut % (Auto) Lymph % (Auto) Person % (Auto) Eos % (Auto) Baso % (Auto) Neut # (Auto) Lymph # (Auto) Person # (Auto) Eos # (Auto) Baso # (Auto) Sodium Potassium Chloride Carbon Dioxide BUN Creatinine Estimated GFR BUN/Creatinine Ratio Glucose Calcium Magnesium Triglycerides Cholesterol LDL Cholesterol, Calc HDL Cholesterol TSH 3.62 Discharge Plan Discharge Plan Patient Disposition: Home Discharge orders & Medications Prescriptions: Continued albuterol sulfate 90 mcg/actuation HFA aerosol inhaler 1 puff inhalation PRN PRN (Reason: Shortness Of Breath) RF: 0 loperamide 2 mg Capsule 2 mg PO PRN PRN (Reason: Diarrhea) RF: 0 cetirizine 10 mg tablet 10 mg PO QPM RF: 0 levothyroxine 50 mcg tablet 50 mcg PO DAILY RF: 0 pantoprazole 40 mg tablet,delayed release (DR/EC) 40 mg PO QPM RF: 0 fluticasone propionate 50 mcg/actuation spray,suspension 1 spray Intranasal DAILY PRN (Reason: Allergy Symptoms) RF: 0 atenolol 50 mg tablet 50 mg PO DAILY RF: 0 levothyroxine [Synthroid] 25 mcg tablet 25 mcg PO SEEINSTR RF: 0 Follow up/Referrals: Madelyn Mckeon MD [Primary Care Provider] - Diet/Activity/Treatments Diet: Diet as Tolerated Visit Report/Discharge Packet Instructions: DI for Gastroesophageal Reflux Disease (GERD) Discharge Data Primary Care Provider: Madelyn Mckeon Attending Provider: Ivy Monroy Admit Date/Time: 09/04/19 15:00 Discharges patient from system. Discharge Date/Time: 09/05/19 14:50
== END 2019-09-05 14:50 | disposition home or self-care (01) ==
LOC: ED 14:47 → AC 15:02
PROVIDERS: Nurse Practitioner Adult Health; Admitting Provider Internal Medicine; Emergency Provider Emergency Medicine; Family Provider Internal Medicine; PCP Internal Medicine; Referring Provider Emergency Medicine; Visit Provider Internal Medicine
DX: R07.9 Chest pain, unspecified (principal); K21.9 Gastro-esophageal reflux disease without esophagitis; R11.0 Nausea; R00.0 Tachycardia, unspecified; E03.9 Hypothyroidism, unspecified
CPT/HCPCS: 36415; 71045; 78451; 80048; 80053; 80061; 81001; 82550; 83690; 83735; 84443; 84484; 85025; 85610; 85730; 93005; 93017; 94762; 96361; 96374; 99284; G0378; A9502; C9113; J1644

== ENCOUNTER 2020-02-16 19:27 | Emergency (ER) | payer MEDICARE, OTHER, SELFPAY ==
[2019-09-04 17:16] VITALS: BMI 32.9
[2020-02-16 19:55] VITALS: BP 160/98; PULSE 86; RESP 16; TEMP 36.6; O2SAT 100; BMI 33.6
--- NOTE | 2020-02-16 20:01 | PC.NURSE ---
states lip and tongue swelling, no airway involvement noted at this time. states has been going on x 2 weeks and has gotten worse the last 2 days. normal appearing lips and tongue at this time
--- NOTE | 2020-02-16 20:11 | ED.DENTAL ---
HPI - Dental/Oral <Kim Jiménez [employer]LE[employer] CLERK - Last Filed: 02/16/20 20:42> General Chief complaint: Dental/Oral Stated complaint: Inflamed Lips/Mouth/Tongue Time Seen by Provider: 02/16/20 19:29 History of Present Illness HPI Narrative: 64yo female presents to the emergency department for lip swelling and soreness for the past few weeks. She states she has been under ?a very very high amount of stress lately. Patient states she occasionally gets this type reaction when she wears different types of lipstick. She states this occurs intermittently for the past 2 weeks but sent the past 3 days it has been increasingly worse. She states her lips are sore and she feels like they have blisters on them. She states her tongue is sore in her gums are sore as well. She denies any trauma to the area, new lipsticks or make-up, denies new foods. Patient denies any throat swelling, difficulty breathing, drooling, difficulty swallowing, tooth pain, fevers, chills, nausea, vomiting, diarrhea, or any other concerns. Related Data Home Medications Medication Instructions Recorded Confirmed atenolol 50 mg PO DAILY 05/17/18 09/04/19 cetirizine 10 mg PO QPM 05/17/18 09/04/19 fluticasone propionate 1 spray INTRANASAL DAILY PRN 05/17/18 09/04/19 levothyroxine 50 mcg PO DAILY 05/17/18 09/04/19 pantoprazole 40 mg PO QPM 05/17/18 09/04/19 albuterol sulfate 1 puff INHALATION PRN PRN 12/21/18 09/04/19 loperamide 2 mg PO PRN PRN 12/21/18 09/04/19 levothyroxine [Synthroid] 25 mcg PO SEEINSTR 09/04/19 09/04/19 Previous Rx's Medication Instructions Recorded nystatin 1 ml PO TID #60 ml 02/16/20 Allergies Allergy/AdvReac Type Severity Reaction Status Date / Time Penicillins [PENICILLINS] Allergy Mild RASH Verified 09/04/19 11:38 doxycycline [DOXYCYCLINE] Allergy Unknown Verified 09/04/19 11:38 erythromycin base Allergy Unknown Verified 09/04/19 11:38 [ERYTHROMYCIN BASE] fluconazole [FLUCONAZOLE] Allergy Unknown Verified 09/04/19 11:38 metoclopramide Allergy Unknown Verified 09/04/19 11:38 [METOCLOPRAMIDE] Sulfa (Sulfonamide Allergy Unknown Verified 09/04/19 11:38 Antibiotics) tetracycline [TETRACYCLINE] Allergy Unknown Verified 09/04/19 11:38 Review of Systems <AMBER Wilson - Last Filed: 02/16/20 20:42> Review of Systems Narrative: REVIEW OF SYSTEMS: GENERAL: Denies fevers. HENT: No head trauma. Patient reports lip soreness and swelling, see HPI. RESPIRATORY: No shortness of breath. GASTROINTESTINAL: No nausea, vomiting, diarrhea, or constipation. MUSCULOSKELETAL: No weakness or injury. INTEGUMENTARY: No rash, lesions, or pruritus. NEURO: No memory loss, or confusion. Reports increased stress, see HPI. Patient History <AMBER Wilson - Last Filed: 02/16/20 20:42> Medical History Degenerative disc disease (Chronic) GERD (gastroesophageal reflux disease) (Chronic) Hypothyroidism (Chronic) Osteoarthritis of multiple joints (Chronic) Tachycardia, paroxysmal (Chronic) Surgical History H/O partial thyroidectomy (Resolved) Status post cholecystectomy (Resolved) Status post hysterectomy (Resolved) Family History Father Hypertension Smoker in home Cancer Mother Smoker in home Hypertension Cancer Social History household members: spouse Smoking Status: Never smoker alcohol intake: current substance use type: does not use Smoking Status: Never smoker alcohol intake frequency: a few times a month Alcohol type: wine Substance Use Type: does not use Exam <AMBER Wilson - Last Filed: 02/16/20 20:42> Initial Vital Signs Initial Vital Signs: Vital Signs Temperature 97.8 F 02/16/20 19:55 Pulse Rate 86 02/16/20 19:55 Respiratory Rate 16 02/16/20 19:55 Blood Pressure 160/98 H 02/16/20 19:55 Pulse Oximetry 100 02/16/20 19:55 PHYSICAL EXAMINATION: GENERAL: Well groomed, alert, and cooperative. Answers questions promptly and appropriately. Vital signs noted. HENT: Normocephalic, atraumatic. Ear canals patent. TMs intact without mucus or erythema. Oropharynx with slight erythema. Slight redness noted to the edges of tongue, no obvious gingivitis. Top and bottom lips appear reddened around vermilion borders, small patches of redness, no blisters, lesions, or ulcerations. Patient's was within normal limits and without a for stone, able to swallow saliva without any difficulty. EYES: Conjunctiva pink, sclera white, no periorbital swelling. No discharge. CHEST: Normal to inspection and without deformities. RESPIRATORY: Normal respiratory rate, trachea midline, airway patent. No stridor, nasal flaring or accessory muscle use. Able to speak in full sentences. MUSCULOSKELETAL: Normal gait and coordination. Equal tone and mass bilaterally. EXTREMITIES: Moves all extremities. SKIN: Warm, dry, soft, appropriate color for ethnicity. No lesions, rashes, or wounds to visualized areas. NEURO: Alert and Oriented X 3. Good coordination. No ataxia or cognitive issues. PSYCH: Appropriate affect and mood. <Alec Tian DO - Last Filed: 02/17/20 06:19> Initial Vital Signs Initial Vital Signs: Vital Signs Temperature 97.8 F 02/16/20 19:55 Pulse Rate 86 02/16/20 19:55 Respiratory Rate 16 02/16/20 19:55 Blood Pressure 160/98 H 02/16/20 19:55 Pulse Oximetry 100 02/16/20 19:55 Course <AMBER Wilson - Last Filed: 02/16/20 20:42> Course Course Narrative: Patient was given a dose of steroids to help with swelling, patient was also given a dose of nystatin as well. In culture taken per patient request. Orders Ordered: Discontinued Medications Dexamethasone (Decadron) 10 mg PO NOW ONE Stop: 02/16/20 20:02 Last Admin: 02/16/20 20:30 Dose: 10 mg Documented by: CONRAD Nystatin (Mycostatin Susp) 500,000 unit PO NOW ONE Stop: 02/16/20 20:02 Last Admin: 02/16/20 20:30 Dose: 500,000 unit Documented by: CONRAD Vital Signs Vital signs: Vital Signs - 8 hr 02/16/20 19:55 Temperature 97.8 F Pulse Rate 86 Respiratory Rate 16 Blood Pressure 160/98 H Pulse Oximetry 100 <Alec Tian DO - Last Filed: 02/17/20 06:19> Orders Ordered: Discontinued Medications Dexamethasone (Decadron) 10 mg PO NOW ONE Stop: 02/16/20 20:02 Last Admin: 02/16/20 20:30 Dose: 10 mg Documented by: CONRAD Nystatin (Mycostatin Susp) 500,000 unit PO NOW ONE Stop: 02/16/20 20:02 Last Admin: 02/16/20 20:30 Dose: 500,000 unit Documented by: CONRAD Vital Signs Vital signs: Vital Signs - 8 hr 02/16/20 19:55 Temperature 97.8 F Pulse Rate 86 Respiratory Rate 16 Blood Pressure 160/98 H Pulse Oximetry 100 MDM - Dental/Oral <AMBER Wilson - Last Filed: 02/16/20 20:42> Medical Records Attestation: I reviewed the patient's medical records. Lab Data Attestation: I reviewed the patient's lab results. [facility] Narrative Medical decision making narrative: 64-year-old female presents emergency department complaining of lip swelling in urination over the past 2 weeks as worse the past 3 days. She reports significant increased stress. Differential includes aphthous ulcers, stress reaction stomatitis versus fungal infection. Patient was given dexamethasone to help with inflammation, she was given nystatin mouthwash to help in case of fungal infection. Return precautions given for new or worsening symptoms. She was encouraged to follow up with PCP in the next few weeks for further evaluation. Discharge Plan Departure Patient Disposition: Home Clinical Impression: Stomatitis Discharge Date/Time: 02/16/20 20:40 Activity Restrictions/Additional Instructions: Thank you for entrusting me with your care today. As discussed, we have given you a dose of steroids today to help with inflammation and pain. I prescribed you a mouthwash to treat yeast in fungal infections. Use this 2 to 3 times a day, switch should around in your mouth, hold in your mouth as long as possible and then spit it out. Your prescription was sent to [facility] in [place]. Please use a lip moisturizer multiple times a day. Reduce consumption of acidic foods such as citrus, tomatoes, on spicy foods. Follow-up with your primary care provider in 1-2 weeks for further evaluation. Return emergency department for any new or worsening symptoms. Prescriptions: New nystatin 100,000 unit/mL suspension 1 ml PO TID Qty: 60 RF: 0 No Action albuterol sulfate 90 mcg/actuation HFA aerosol inhaler 1 puff inhalation PRN PRN (Reason: Shortness Of Breath) RF: 0 loperamide 2 mg Capsule 2 mg PO PRN PRN (Reason: Diarrhea) RF: 0 cetirizine 10 mg tablet 10 mg PO QPM RF: 0 levothyroxine 50 mcg tablet 50 mcg PO DAILY RF: 0 pantoprazole 40 mg tablet,delayed release (DR/EC) 40 mg PO QPM RF: 0 fluticasone propionate 50 mcg/actuation spray,suspension 1 spray Intranasal DAILY PRN (Reason: Allergy Symptoms) RF: 0 atenolol 50 mg tablet 50 mg PO DAILY RF: 0 levothyroxine [Synthroid] 25 mcg tablet 25 mcg PO SEEINSTR RF: 0 Referrals: Madelyn Mckeon MD [Primary Care Provider] - <Alec Tian DO - Last Filed: 02/17/20 06:19> Cosign ED Attending Cosignature Attestation: I was immediately available in the department for consultation. This documentation has been reviewed and I agree with assessment and plan. Supervised by Alec Tian DO
[2020-02-16] MEDS: NYSTATIN SUSP 500,000 UNIT/5 ML UDC 500000 UNIT PO (20:30)
[2020-02-16] MEDS: DEXAMETHASONE 10 MG/ML VIAL PO (20:30)
== END 2020-02-16 20:40 | disposition home or self-care (01) ==
PROVIDERS: Emergency Provider Nurse Practitioner; Family Provider Internal Medicine; PCP Internal Medicine
DX: K12.1 Other forms of stomatitis (principal)
CPT/HCPCS: 87070; 87075; 87205; 99283; J1100

== ENCOUNTER 2020-04-27 00:45 | Inpatient (IN) | payer MEDICARE, OTHER, SELFPAY ==
[2019-09-04 17:16] VITALS: BMI 32.9
[2020-04-27] VITALS (32 sets, daily range): BP systolic 95–138; BP diastolic 52–92; PULSE 67–159; RESP 12–29; TEMP 35.7–37.2; O2SAT 93–98; BMI 33.5
--- NOTE | 2020-04-27 | DI.ECHO.S_ITS ---
[facility]---------+ [facility] +---------+ : : [address] : : : : [id number] : : : : Phone: [phone] Echocardiogram Report + + :Name: JAMISON ESPINOSA Study Date: 04/27/2020 Height: 64 in : :[facility] Weight: 195 lb : : Gender: Female BSA: 1.9 m2 : :: 1955 Age: 64 yrs BP: 104/74 mmHg: :Reason For Study: ATRIAL FIBRILLATION : :Ordering Physician: ROSA GUZMAN : :[employer] Performed By: Najma Gutierrez : :Referring: ROSA GUZMAN : + + Interpretation Summary 1) Normal left ventricular thickness, size, wall motion, and systolic function (EF 60-65%). 2) Normal right ventricular size and function. 3) No significant valvular abnormalities. 4) No prior Echo available for comparison. Procedure: A two-dimensional transthoracic echocardiogram with color flow and Doppler was performed. The study quality was technically adequate. There is no prior echocardiogram noted for this patient. The patient was in atrial fibrillation with heart rates between 72-93 bpm during the exam. Left Ventricle: The left ventricle is normal in size and wall thickness. The ejection fraction is estimated to be 60-65%. Diastolic function could not be accurately assessed due to atrial fibrillation. Right Ventricle: The right ventricle is normal in size and function. Atria: Both atria are normal in size. There is no Doppler evidence for an interatrial shunt. Mitral Valve: The mitral valve is normal in structure and function. There is trace mitral regurgitation. Aortic Valve: The aortic valve is trileaflet. The aortic valve opens well. There is no aortic valve stenosis. No aortic regurgitation is present. Tricuspid Valve: The tricuspid valve is normal in structure and function. The right ventricular systolic pressure is estimated to be at least 27 mmHg based on an estimated right atrial pressure of 3 mm Hg. There is mild tricuspid regurgitation. Pulmonic Valve: The pulmonic valve leaflets are thin and pliable; valve motion is normal. There is no pulmonic valvular regurgitation. Great Vessels: The aortic root is normal size. The dimensions of the ascending aorta are normal. The IVC is of normal diameter and collapses greater than 50% with a sniff. This suggests a low right atrial pressure of 3 mm Hg. Pericardium/ Pleura There is no pericardial effusion. There is no pleural effusion. MMode/2D Measurements & Calculations LVIDd: 4.5 cm LVOT diam: 2.1 cm LVIDs: 3.3 cm Ao root diam: 3.2 cm FS: 27.7 % asc Aorta Diam: 3.3 cm EPSS: 0.99 cm Ao Arch Diam (Prox Trans): 2.9 cm IVSd: 0.82 cm LVPWd: 0.78 cm LV amador. diameter/BSA (cm/m^2): 2.3 LV sys. diameter/BSA (cm/m^2): 1.7 LA A2 area: 18.8 cm2 RA long axis: 5.1 cm LA A4 area: 17.5 cm2 RA area: 14.9 cm2 LA length (vol): 5.4 cm RA vol: 36.6 ml LA vol: 51.7 ml RA : 18.9 ml/m2 LA vol index: 26.7 ml/m2 IVC diam: 2.0 cm RVD1 (basal): 3.5 cm TAPSE: 2.1 cm Doppler Measurements & Calculations Ao V2 max: 138.7 cm/sec LVOT Max Hernandez: 78.9 cm/sec Ao V2 mean: 85.7 cm/sec LV V1 max P.5 mmHg Ao max P.7 mmHg LV V1 VTI: 16.0 cm Ao mean P.6 mmHg TESFAYE(I,D): 2.2 cm2 Ao V2 VTI: 25.2 cm TESFAYE(V,D): 2.0 cm2 sev ratio: 0.63 TESFAYE indexed to BSA (cm^2/m^2): 1.1 MV E max hernandez: 98.3 cm/sec TR max hernandez: 243.2 cm/sec MV A max hernandez: 1.3 cm/sec TR max P.7 mmHg MV E/A: 76.7 PA V2 max: 59.3 cm/sec Med Peak E' Hernandez: 9.5 cm/sec PA V2 mean: 37.1 cm/sec E/E' med: 10.3 PA mean P.66 mmHg Lat Peak E' Hernandez: 12.0 cm/sec PA pr(Accel): 37.9 mmHg E/E' lat: 8.2 E/e' average: 9.3 MV dec time: 0.19 sec SV(LVOT): 54.8 ml Reading Physician:12:58 PM
--- NOTE | 2020-04-27 01:06 | DI.RAD.S_ITS ---
PROCEDURE: XR CHEST 1V INDICATIONS: palpitations, SOB TECHNIQUE: One view of the chest was acquired. COMPARISON: [facility], CR, XR CHEST 1V, 09/04/2019, 11:27. FINDINGS: Surgical changes and devices: None. Lungs and pleura: Lungs are clear. No pleural effusions or pneumothorax. Mediastinum: Mediastinal contours appear normal. Heart size is normal. Bones and chest wall: No suspicious bony lesions. Overlying soft tissues appear unremarkable. IMPRESSION: No acute disease Dictated by: Ankit Marquez M.D. on 04/27/2020 at 8:21 Approved by: Ankit Marquez M.D. on 04/27/2020 at 8:22
--- NOTE | 2020-04-27 01:08 | ED_ITS ---
HPI - Chest Pain General Chief Complaint: Chest Pain Stated Complaint: thinks panic attack or heart attack Time Seen by Provider: 04/27/20 00:50 Source: patient and family Mode of arrival: Ambulatory Limitations: no limitations History of Present Illness HPI narrative: 64-year-old female nonsmoker history of asthma and hypothyroid presents with her in the chief complaint of a sudden onset of pounding, fast heart rate and significant anxiety. She states that she awoke from sleep and found her heart rate to be over 160 with her blood pressure in the 170s over 100s. On arrival she states that she has essentially no symptoms and is already requesting to leave as we are hacking her up to the monitor. She is not dizzy nor weak or lightheaded but states that she feels a bit short of breath, like when she needs her inhaler. She does state that she has been under significant stress lately but denies any change in her medications or diet. She denies any history of known cardiac disease. Further questioning demonstrates that she has occasional palpitations or flutter in her chest that she states is due to her nerves. MD complaint: other Onset (ago): minute(s) Duration: improved Onset: during rest Pain location: substernal Severity: moderate Quality: tightness and aching Pain radiation: none Relieving factors: nothing Exacerbating factors: nothing Associated symptoms: dyspnea Treatments prior to arrival chest pain: none Related Data On Oral Contraceptives: No Home Medications Medication Instructions Recorded Confirmed atenolol 50 mg PO DAILY 05/17/18 09/04/19 cetirizine 10 mg PO QPM 05/17/18 09/04/19 fluticasone propionate 1 spray INTRANASAL DAILY PRN 05/17/18 09/04/19 levothyroxine 50 mcg PO DAILY 05/17/18 09/04/19 pantoprazole 40 mg PO QPM 05/17/18 09/04/19 albuterol sulfate 1 puff INHALATION PRN PRN 12/21/18 09/04/19 loperamide 2 mg PO PRN PRN 12/21/18 09/04/19 levothyroxine [Synthroid] 25 mcg PO SEEINSTR 09/04/19 09/04/19 Previous Rx's Medication Instructions Recorded nystatin 1 ml PO TID #60 ml 02/16/20 Allergies Allergy/AdvReac Type Severity Reaction Status Date / Time Penicillins [PENICILLINS] Allergy Mild RASH Verified 09/04/19 11:38 doxycycline [DOXYCYCLINE] Allergy Unknown Verified 09/04/19 11:38 erythromycin base Allergy Unknown Verified 09/04/19 11:38 [ERYTHROMYCIN BASE] fluconazole [FLUCONAZOLE] Allergy Unknown Verified 09/04/19 11:38 metoclopramide Allergy Unknown Verified 09/04/19 11:38 [METOCLOPRAMIDE] Sulfa (Sulfonamide Allergy Unknown Verified 09/04/19 11:38 Antibiotics) tetracycline [TETRACYCLINE] Allergy Unknown Verified 09/04/19 11:38 Review of Systems Constitutional Constitutional: Denies chills, Denies fatigue, Denies fever(s), Denies frequent falls, Denies lethargy and Denies weakness Eyes Eyes: Denies change in vision, Denies eye discharge, Denies irritation and Denies loss of vision ENT Ears, Nose, Mouth, and Throat: Denies change in voice, Denies dizziness, Denies neck pain, Denies sore throat and Denies throat swelling Cardiovascular Cardiovascular: Reports chest pain, Reports rapid heart rate, Reports irregular heart rhythm, Denies lightheadedness, Denies palpitations, Reports dyspnea, Denies dyspnea on exertion and Denies orthopnea Respiratory Respiratory: Denies cough, Reports dyspnea, Denies dyspnea on exertion and Denies wheezing Gastrointestinal Gastrointestinal: Denies abdominal pain, Denies change in bowel habits, Denies diarrhea, Denies nausea and Denies vomiting Musculoskeletal Musculoskeletal: Denies neck pain and Denies numbness Integumentary/Breasts Skin/Breast: Denies pruritus, Denies erythema, Denies rash and Denies wounds Neurologic Neurologic: Denies behavioral changes, Denies confusion, Denies dizziness, Denies frequent falls, Denies loss of vision, Denies numbness and Denies weakness Psychiatric Psychiatric: Denies anxiety, Denies behavioral changes, Denies confusion, Denies depression, Denies homicidal ideation and Denies suicidal ideation Endocrine Endocrine: Denies fatigue, Denies flushing and Denies palpitations Hematologic/Lymphatic Hematologic/Lymphatic: Denies easy bruising Allergic/Immunologic Allergic/Immunologic: Denies urticaria, Denies throat swelling and Denies wheezing Patient History Medical History Degenerative disc disease (Chronic) GERD (gastroesophageal reflux disease) (Chronic) Hypothyroidism (Chronic) Osteoarthritis of multiple joints (Chronic) Tachycardia, paroxysmal (Chronic) Surgical History H/O partial thyroidectomy (Resolved) Status post cholecystectomy (Resolved) Status post hysterectomy (Resolved) Family History Father Hypertension Smoker in home Cancer Mother Smoker in home Hypertension Cancer Social History household members: spouse Smoking Status: Never smoker alcohol intake: current substance use type: does not use Smoking Status: Never smoker alcohol intake frequency: a few times a month Alcohol type: wine Substance Use Type: does not use Exam Narrative Exam Narrative: GENERAL: [64] year old patient appears stated age. Well- nourished, well-developed patient, in mild distress. HEAD: Atraumatic. Normocephalic. EYES: Pupils equal round and reactive. Extraocular motions intact. No scleral icterus. No injection or drainage. ENT: Nose without bleeding, purulent drainage. Throat without erythema, tonsillar hypertrophy or exudate. Airway patent. NECK: Trachea midline. Non tender CARDIOVASCULAR: Tachycardic and irregular rhythm without murmurs, gallops, or rubs. RESPIRATORY: Clear to auscultation. Breath sounds equal bilaterally. No wheezes, rales, or rhonchi. GASTROINTESTINAL: Abdomen soft, non-tender, nondistended. EXTREMITIES: No edema or joint tenderness. BACK: Nontender without deformity or crepitance. No flank tenderness. NEURO: AOx3. SKIN: No rash or erythema of visible areas Initial Vital Signs Initial Vital Signs: Vital Signs Temperature 98.2 F 04/27/20 01:03 Pulse Rate 159 H 04/27/20 01:03 Respiratory Rate 22 04/27/20 01:03 Blood Pressure 130/86 04/27/20 01:03 Pulse Oximetry 97 04/27/20 01:03 Course Course Course Narrative: Patient is not a candidate for electrocardioversion as it is unclear when her AFib actually started. On arrival she still has a heart rate of 160 and is essentially asymptomatic. Furthermore, she mentions multiple prior episodes with palpitations and fluttering, which she attributed to her nerves. Orders Ordered: ED Orders 10/19/20 EKG-12 Lead Stat 04/27/20 01:00 Complete Blood Count AUTO DIFF Stat Comprehensive Metabolic Panel Stat Lipase Stat NT-proBNP (BNP-Adult 18+) Stat Prothrombin Time INR Stat Thyroid Stimulating Hormone Stat Troponin & CK Cardiac Panel Stat 04/27/20 01:06 XR chest 1V Stat 04/27/20 01:53 COVID19 -ED/INPAT/OR/L&D Stat DILTIAZEM (Diltiazem 125 Mg/125 Ml-D5w) 125 mg in 125 mls @ 5 mls/hr IV TITRATE JESICA; Protocol Last Titration: 04/27/20 02:00 Dose: 7.5 mg/hr, 7.5 mls/hr Documented by: Admin: 04/27/20 01:20 Dose: 5 mg/hr, 5 mls/hr Documented by: HYUN Sodium Chloride (Normal Saline 0.9%) 1,000 mls @ 150 mls/hr IV CONT JESICA Discontinued Medications Diltiazem HCl (Cardizem) 10 mg IV NOW ONE Stop: 04/27/20 01:07 Last Admin: 04/27/20 01:18 Dose: 10 mg Documented by: HYUN Enoxaparin Sodium (Lovenox) 75 mg 1 mg/kg (75 mg) SUBCUT NOW ONE Stop: 04/27/20 01:07 Enoxaparin Sodium (Lovenox) 40 mg SUBCUT NOW ONE Stop: 04/27/20 01:33 Last Admin: 04/27/20 01:48 Dose: 40 mg Documented by: KRISTEL Vital Signs Vital signs: Vital Signs - 8 hr 04/27/20 01:03 04/27/20 01:18 Temperature 98.2 F Pulse Rate 159 H 150 H Respiratory Rate 22 Blood Pressure 130/86 109/89 Pulse Oximetry 97 MDM - Chest Pain Lab Data Result diagrams: 04/27/20 01:00 04/27/20 01:00 Labs: Lab Results 04/27/20 04/27/20 04/27/20 Range/Units 01:00 01:00 01:00 WBC 9.6 (4.5-11.0) X10^3/uL RBC 4.63 (4.0-5.2) X10^6/uL Hgb 13.8 (12.0-16.0) g/dL Hct 41.3 (36-46) % MCV 89.3 (80-100) fL MCH 29.8 (26-34) PG MCHC 33.3 (30-36) % RDW 14.0 (11.6-14.8) % Plt Count 312 (150-400) X10^3/uL Neut % (Auto) 54.4 (50-75) % Lymph % (Auto) 35.1 (25-40) % [place] % (Auto) 7.8 (3-14) % Eos % (Auto) 2.1 (2-4) % Baso % (Auto) 0.6 (0-2) % Neut # (Auto) 5200 (7887-1034) /uL Lymph # (Auto) 3400 (4560-1259) /uL [place] # (Auto) 800 (0-900) /uL Eos # (Auto) 200 (0-450) /uL Baso # (Auto) 100 (0-100) /uL PT 12.3 (10.1-12.7) SECONDS INR 1.1 (0.9-1.3) Sodium 140 (137-145) mmol/L Potassium 4.0 (3.4-5.1) mmol/L Chloride 107 (98-107) mmol/L Carbon Dioxide 28 (22-32) mmol/L BUN 18 H (7-17) mg/dL Creatinine 0.63 (0.52-1.04) mg/dL Estimated GFR > 60.0 (>60) mL/min BUN/Creatinine Ratio 28.6 H (6-22) Glucose 110 (80-110) mg/dL Calcium 9.5 (8.4-10.2) mg/dL Total Bilirubin 0.4 (0.2-1.3) mg/dL AST 30 (14-36) IU/L ALT 33 (<35) IU/L Alkaline Phosphatase 85 (38-126) U/L Total Creatine Kinase 43 (30-135) U/L CK-MB (CK-2) TNP CK-MB (CK-2) Rel Index TNP Troponin I < 0.012 (0.01-0.034) ng/mL NT-Pro-B Natriuret Pep 55 (<125) pg/mL Total Protein 7.8 (6.3-8.2) g/dL Albumin 4.1 (3.5-5.0) g/dL Globulin 3.7 (1.7-4.1) g/dL Albumin/Globulin Ratio 1.1 (1.0-2.8) Lipase 130 (23-300) U/L TSH (0.47-4.68) uIU/mL 04/27/20 Range/Units 01:00 WBC (4.5-11.0) X10^3/uL RBC (4.0-5.2) X10^6/uL Hgb (12.0-16.0) g/dL Hct (36-46) % MCV (80-100) fL MCH (26-34) PG MCHC (30-36) % RDW (11.6-14.8) % Plt Count (150-400) X10^3/uL Neut % (Auto) (50-75) % Lymph % (Auto) (25-40) % [place] % (Auto) (3-14) % Eos % (Auto) (2-4) % Baso % (Auto) (0-2) % Neut # (Auto) (3317-1340) /uL Lymph # (Auto) (9546-2759) /uL [place] # (Auto) (0-900) /uL Eos # (Auto) (0-450) /uL Baso # (Auto) (0-100) /uL PT (10.1-12.7) SECONDS INR (0.9-1.3) Sodium (137-145) mmol/L Potassium (3.4-5.1) mmol/L Chloride (98-107) mmol/L Carbon Dioxide (22-32) mmol/L BUN (7-17) mg/dL Creatinine (0.52-1.04) mg/dL Estimated GFR (>60) mL/min BUN/Creatinine Ratio (6-22) Glucose (80-110) mg/dL Calcium (8.4-10.2) mg/dL Total Bilirubin (0.2-1.3) mg/dL AST (14-36) IU/L ALT (<35) IU/L Alkaline Phosphatase (38-126) U/L Total Creatine Kinase (30-135) U/L CK-MB (CK-2) CK-MB (CK-2) Rel Index Troponin I (0.01-0.034) ng/mL NT-Pro-B Natriuret Pep (<125) pg/mL Total Protein (6.3-8.2) g/dL Albumin (3.5-5.0) g/dL Globulin (1.7-4.1) g/dL Albumin/Globulin Ratio (1.0-2.8) Lipase (23-300) U/L TSH 6.50 H (0.47-4.68) uIU/mL Urine Dip Bedside Urine Glucose Negative Bedside Urine Bilirubin - Negative Bedside Urine Ketone - Negative Urine Specific [place] 1.010 Bedside Urine Occult Blood - Negative Bedside Urine pH 7.0 Bedside Urine Protein - Negative Bedside Urine Urobilinogen - Negative Bedside Urine Nitrite - Negative Bedside Urine Leukocytes - Negative Esterase Discharge Plan Departure Patient Disposition: Admitted As Inpatient Clinical Impression: Atrial fibrillation with rapid ventricular response Referrals: Madelyn Mckeon MD [Primary Care Provider] -
[2020-04-27 01:16] LABS: Add Manual Diff / Slide Review NO; Basophils Absolute Auto 100 /uL (0-100); Basophils Percent Auto 0.6 % (0-2); Eosinophils Absolute Auto 200 /uL (0-450); Eosinophils Percent Auto 2.1 % (2-4); Hematocrit 41.3 % (36-46); Hemoglobin 13.8 g/dL (12.0-16.0); INR 1.1 (0.9-1.3); Lymphocytes Absolute Auto 3400 /uL (1100-4500); Lymphocytes Percent Auto 35.1 % (25-40); Mean Corpuscular HGB Conc 33.3 % (30-36); Mean Corpuscular Hemoglobin 29.8 PG (26-34); Mean Corpuscular Volume 89.3 fL (80-100); Monocytes Absolute Auto 800 /uL (0-900); Monocytes Percent Auto 7.8 % (3-14); Neutrophils Absolute Auto 5200 /uL (1500-7000); Neutrophils Percent Auto 54.4 % (50-75); Platelet Count 312 X10^3/uL (150-400); Prothrombin Time 12.3 SECONDS (10.1-12.7); Red Blood Cell Count 4.63 X10^6/uL (4.0-5.2); White Blood Cell Count 9.6 X10^3/uL (4.5-11.0)
[2020-04-27] MEDS: dilTIAZem 5 MG/ML SDV 10 MG IV (01:18)
[2020-04-27] MEDS: DILTIAZEM 125 MG/125 ML PIGGYBACK IV ×2 (01:20→10:49)
[2020-04-27 01:21] LABS: Alanine Aminotransferase 33 IU/L (<35); Albumin 4.1 g/dL (3.5-5.0); Albumin Globulin Ratio 1.1 (1.0-2.8); Alkaline Phosphatase 85 U/L (38-126); Aspartate Aminotransferase 30 IU/L (14-36); BUN Creatinine Ratio 28.6 (6-22); Bilirubin Total 0.4 mg/dL (0.2-1.3); Blood Urea Nitrogen 18 mg/dL (7-17); Calcium 9.5 mg/dL (8.4-10.2); Carbon Dioxide 28 mmol/L (22-32); Chloride 107 mmol/L (98-107); Creatine Kinase 43 U/L (30-135); Estimated Glomerular Filt Rate > 60.0 mL/min (>60); Globulin 3.7 g/dL (1.7-4.1); Glucose 110 mg/dL (80-110); HEMOLYSIS 20 (0-50); Lipase 130 U/L (23-300); Sodium 140 mmol/L (137-145); Total Protein 7.8 g/dL (6.3-8.2)
[2020-04-27 01:33] LABS: NT-proBNP (BNP-Adult 18+) 55 pg/mL (<125); Troponin I < 0.012 ng/mL (0.01-0.034)
[2020-04-27] MEDS: ENOXAPARIN 40 MG/0.4 ML SYRINGE SUBCUT (01:48)
[2020-04-27 02:11] LABS: COVID19 -Nasal RAPID Negative (Negative)
--- NOTE | 2020-04-27 03:16 | PM.HP.1 ---
History of Present Illness History of Present Illness Date Patient Seen: 04/27/20 Time Patient Seen: 02:30 Chief complaint: thinks panic attack or heart attack Narrative: Martha Canales is a 64-year-old female with a history of ?benign? tachycardia who is been taking oral atenolol since her late 30s, acquired hypothyroidism, and asthma who has been under a lot of stress over the past several months. As she was falling asleep last night she stated that she felt like her heart was pounding. She did not have chest pain specifically. She checked her blood pressure as well as her heart rate and at that time measured her heart rate to be 158 and her blood pressure to be at 148/101. She became quite shaky and frightened and had her bring her here to the hospital. She states that she was cold and shaky Um and that she had tightness in her chest and was breathing quite fast. She has been noticing that she has been coughing a lot when lying down that is relieved by getting up. She has had quite a bit of urine output since being in the ED apparently from the fluids ever giving her, she states that she is had some diarrhea for which she takes Imodium him and was advised to monitor her for blood in her stool by her PCP. She also has chronic neck pain which tends to trigger dizzy spells when she turns her head a certain way. The patient has had a history of chest pain episodes. She was seen in the emergency department for chest pain and was told that she had reflux it was not well controlled and had changed her medication. She did undergo a stress test approximately 10 years ago due to the ?benign tachycardia?, she was told that she would probably have this lifelong however was told she had a low chance of a cardiac event. In the emergency department her EKG indicated atrial fibrillation with RVR and possible inferior subendocardial injury. At the time of my visit with her in the room her heart rate was ranging between 140-170 beats per minute. Currently she is afebrile, blood pressure is 135/90, heart rate is now 139, respiratory rate 20, oxygen saturation of 97% on room air, she weighs 80.4 kg the BMI of 32.9. CBC and chemistries are largely within normal limits, magnesium was 1.9, liver enzymes within normal limits, troponin was 0.12, TSH is elevated at 6.5, free T4 is pending and COVID-19 PCR is negative. Patient History Medical History Degenerative disc disease (Chronic) GERD (gastroesophageal reflux disease) (Chronic) Hypothyroidism (Chronic) Osteoarthritis of multiple joints (Chronic) Tachycardia, paroxysmal (Chronic) Surgical History H/O partial thyroidectomy (Resolved) Status post cholecystectomy (Resolved) Status post hysterectomy (Resolved) Family & Social History Family History (Updated 04/27/20 @ 03:59 by AMBER Mendoza) Father Hypertension Smoker in home Cancer Esophageal cancer Lung cancer Mother Smoker in home Hypertension Cancer Lung cancer Breast cancer Social History: household members spouse Tobacco & Substance use: Smoking Status Never smoker alcohol intake current alcohol intake frequency a few times a month Substance Use Type does not use Meds Home Medications and Allergies Home Medications Medication Instructions Recorded Confirmed Type atenolol 50 mg PO DAILY 05/17/18 09/04/19 History cetirizine 10 mg PO QPM 05/17/18 09/04/19 History fluticasone propionate 1 spray INTRANASAL DAILY PRN 05/17/18 09/04/19 History levothyroxine 50 mcg PO DAILY 05/17/18 09/04/19 History pantoprazole 40 mg PO QPM 05/17/18 09/04/19 History albuterol sulfate 1 puff INHALATION PRN PRN 12/21/18 09/04/19 History loperamide 2 mg PO PRN PRN 12/21/18 09/04/19 History levothyroxine [Synthroid] 25 mcg PO SEEINSTR 09/04/19 09/04/19 History nystatin 1 ml PO TID #60 ml 02/16/20 Rx Allergies Allergy/AdvReac Type Severity Reaction Status Date / Time Penicillins [PENICILLINS] Allergy Mild RASH Verified 09/04/19 11:38 doxycycline [DOXYCYCLINE] Allergy Unknown Verified 09/04/19 11:38 erythromycin base Allergy Unknown Verified 09/04/19 11:38 [ERYTHROMYCIN BASE] fluconazole [FLUCONAZOLE] Allergy Unknown Verified 09/04/19 11:38 metoclopramide Allergy Unknown Verified 09/04/19 11:38 [METOCLOPRAMIDE] Sulfa (Sulfonamide Allergy Unknown Verified 09/04/19 11:38 Antibiotics) tetracycline [TETRACYCLINE] Allergy Unknown Verified 09/04/19 11:38 Review of Systems Review of Systems ROS: Yes All systems reviewed with the patient and are negative except as otherwise documented Exam Vital Signs (past 8 hours): - 04/27/20 01:03 04/27/20 01:18 04/27/20 01:31 Temperature 98.2 F Pulse Rate 159 H 150 H 147 H Respiratory Rate 22 12 Blood Pressure 130/86 109/89 117/89 Pulse Oximetry 97 95 04/27/20 02:06 04/27/20 02:10 04/27/20 02:20 Temperature Pulse Rate 150 H 149 H 143 H Respiratory Rate 15 12 12 Blood Pressure 121/78 134/76 138/85 Pulse Oximetry 98 96 95 04/27/20 02:30 04/27/20 02:41 04/27/20 02:50 Temperature Pulse Rate 157 H 148 H 148 H Respiratory Rate 17 15 12 Blood Pressure 135/75 115/84 127/87 Pulse Oximetry 97 96 96 04/27/20 03:00 Temperature Pulse Rate 147 H Respiratory Rate 12 Blood Pressure 134/92 H Pulse Oximetry 95 Oxygen Delivery Method Room Air Narrative Exam Narrative: Gen: Alert, oriented, mildly obese 64 y.o. female, mildly anxious HEENT: normocephalic, atraumatic, conjunctiva clear, sclera non-icteric, oral mucosa pink and moist Neck: supple, full ROM, no JVD, trachea is midline Resp: Lungs CTA, non-labored breathing CV: tachycardic, no murmur or rubs Abd: soft, non-tender, normoactive BTs Skin: no lesions or rashes, dry and intact Neuro: Alert and oriented X 4 w/no focal deficits. Speech clear and coherent. Extremities: no edema, moves all 4 extremities, is ambulatory, negative Madeleine?s sign Psyche: normal mood and affect Objective Labs Result Diagrams: 04/27/20 01:00 04/27/20 01:00 Labs: Laboratory Results - last 24 hr 04/27/20 04/27/20 04/27/20 01:00 01:00 01:00 WBC 9.6 RBC 4.63 Hgb 13.8 Hct 41.3 MCV 89.3 MCH 29.8 MCHC 33.3 RDW 14.0 Plt Count 312 Neut % (Auto) 54.4 Lymph % (Auto) 35.1 [place] % (Auto) 7.8 Eos % (Auto) 2.1 Baso % (Auto) 0.6 Neut # (Auto) 5200 Lymph # (Auto) 3400 [place] # (Auto) 800 Eos # (Auto) 200 Baso # (Auto) 100 PT 12.3 INR 1.1 Sodium 140 Potassium 4.0 Chloride 107 Carbon Dioxide 28 BUN 18 H Creatinine 0.63 Estimated GFR > 60.0 BUN/Creatinine Ratio 28.6 H Glucose 110 Calcium 9.5 Total Bilirubin 0.4 AST 30 ALT 33 Alkaline Phosphatase 85 Total Creatine Kinase 43 CK-MB (CK-2) TNP CK-MB (CK-2) Rel Index TNP Troponin I < 0.012 NT-Pro-B Natriuret Pep 55 Total Protein 7.8 Albumin 4.1 Globulin 3.7 Albumin/Globulin Ratio 1.1 Lipase 130 TSH COVID-19 PCR 04/27/20 04/27/20 01:00 01:53 WBC RBC Hgb Hct MCV MCH MCHC RDW Plt Count Neut % (Auto) Lymph % (Auto) [place] % (Auto) Eos % (Auto) Baso % (Auto) Neut # (Auto) Lymph # (Auto) [place] # (Auto) Eos # (Auto) Baso # (Auto) PT INR Sodium Potassium Chloride Carbon Dioxide BUN Creatinine Estimated GFR BUN/Creatinine Ratio Glucose Calcium Total Bilirubin AST ALT Alkaline Phosphatase Total Creatine Kinase CK-MB (CK-2) CK-MB (CK-2) Rel Index Troponin I NT-Pro-B Natriuret Pep Total Protein Albumin Globulin Albumin/Globulin Ratio Lipase TSH 6.50 H COVID-19 PCR Negative Assessment & Plan Assessment & Plan narrative: Martha Canales will be admitted to the ICU for continuation of a diltiazem drip in hopes that the atrial fibrillation w/RVR will convert Atrial fibrillation w/RVR, acute, present on admission -Admit to ICU for a diltiazem drip and telemetry -Cardioversion was not done in the ED due to not knowing the exact time of onset. -Discussed case with Dr. Menendez, buffing wheel former automatic who recommended a 1 time dose of IV metoprolol 5 mg. If she responds to that dose, she should be started on metoprolol tartrate 25 mg q.6 hours and when her heart rate starts to drop into the 70s and 80s she can come off the diltiazem drip. Holding her home dose of atenolol and will likely be discharged on metoprolol instead. -she received a 1 time dose of enoxaparin in the emergency department of 40 mg. She needs to be on a therapeutic dose and was recommended to start apixaban tonight and then every 12 hours thereafter and be discharged on apixaban -initial troponin was negative and they will be trended starting at 7:00 a.m. -initial magnesium was 1.9, slightly below goal of 2.0, will give 1 gram IV X 1 -echocardiogram 04/27 Risk stratification -lipid panel in the am. Hypothyroidism, subtherapeutic TSH AT 6.5, present on admission -Normally takes alternating doses of brand levothyroxine (Synthroid) 50 and 75 mcgs each day. She will start on levothyroxine 75 mcg/day. Recommend she remain on the brand for dosing consistency. -she will need to have her TSH and free T4 checked in 4-6 weeks. Asthma, chronic -She is continued on her Flovent and levalbuteraol for shortness of breath and/or wheezing VTE prophylaxis: Wells risk score: 1.5 She received a one time dose of enoxaparin, but will be transitioned to apixaban 5 mg po bid Consults: Dr. Menendez consult and involvement is appreciated, however recommended to call the local buffing wheel former automatic office if unable to get her to convert. Patient is admitted under inpatient status in the ICU with expected length of stay greater than 2 midnights due to severity of presenting symptoms, risk of adverse event, and complexity of treatment plan. FEN: NS at 100 ml/hour, heart healthy diet, BMP and magnesium in the am. Dispo: probable discharge to home Code Status: Full code as discussed with patient Scores CHADS-VASc Congestive heart failure: no Hypertension: yes Age 75 years or older: no Diabetes mellitus: no Stroke, TIA, or TE: no Vascular disease: no Age 65 to 74 years: yes Sex category (female): Female CHADS-VASc Score: 3 Wells' Criteria for PE Clinical signs and symptoms of DVT: No PE is #1 Dx or equally likely: No Heart rate > 100: Yes Immobilization at least 3 days or surg in previous 4 weeks: No History of PE or DVT: No Hemoptysis: No Malignancy w/Treatment within 6 months or palliative: No Wells' PE Score total: 1.5
--- NOTE | 2020-04-27 03:30 | PC.NURSE ---
Pt transferred with Dilt gtt still running @10mL/hr
[2020-04-27 03:41] LABS: Magnesium 1.9 mg/dL (1.6-2.3)
[2020-04-27] MEDS: METOPROLOL TARTRATE 5 MG/5 ML INJ IV ×2 (03:48→09:12)
[2020-04-27 03:57] LABS: Free T4, Direct Thyroxine 1.37 ng/dL (0.78-2.19)
[2020-04-27] MEDS: APIXABAN 5 MG TABLET PO ×3 (04:03→20:44)
[2020-04-27] MEDS: METOPROLOL IR 25 MG TABLET PO ×3 (05:11→18:19)
[2020-04-27] MEDS: MAGNESIUM SULFATE 1 GM/25 ML PIGGYBACK IV (05:25)
--- NOTE | 2020-04-27 06:36 | PC.NURSE ---
Admit Note-Patient was brought to room 227 at 0330, A/Ox4, mildly anxious r/t diagnosis of new onset Afib, HR 130s-140s, diltiazem infusing at 10mg/hr, ambulated into BR with SBA, denies chest pain, palpitations, dyspnea, or dizziness. 5mg IVP metoprolol given x1 followed by 25mg PO metoprolol to be Q6h. Eliquis started. 1gm Mg+ sulfate infused. Diltiazem decreased to 5mg/hr at 0610, HR < 100, BP 98/59(73).
[2020-04-27] MEDS: LEVOTHYROXINE 75 MCG TABLET PO (08:00)
--- NOTE | 2020-04-27 08:36 | PC.NURSE ---
Addendum entered by Clotilde Mae R.N. 04/27/20 13:55: able to wean dilt gtt to off with addition of po metoprolol. Presently in afib with cvr at 75bpm- resting comfortably, did request and take some tylenol for c/o neck-headache Addendum entered by Clotilde Mae R.N. 04/27/20 12:13: echo completed Original Note: PT ANXIOUS UPON INITIAL ASSESSMENT HER HEART RATE WAS 110-146 AFIB INCREASED TO 10/H THEN SWIFTLY UP TO 15MG/H - LUNGS DIMINISHED BUT CLEAR AND NO USE OF OXYGEN- PT SUPPORTS SLIGHT BILAT ANKLE EDEMA AND VOIDING PER BATHROOM
[2020-04-27] MEDS: SODIUM CHLORIDE 0.9% 1,000 ML 100 ML IV ×2 (10:07→20:45)
--- NOTE | 2020-04-27 11:04 | CM.DANOTE ---
DCP: Case received, EMR reviewed and met with patient. Introduced self and role. Was able to obtain information from patient regarding her baseline activity status prior to hospitalization. DCP assessment completed with information currently available. Patient is a 64 year old female who admitted early this morning to the care of the hospitalist team. PCP: Dr. Mckeon at [facility]. Payer: confirmed: Medicare/[employer]. Patient came to the hospital via private vehicle secondary to rapid heart rate. Patient holds curent diagnosis of a-fib with rapid RVR. She is on a Diltiazem drip. According to notes, patient has been taking Atenolol for years. Her primary care provider is in [place], for patient used to live in that area. Patient also has history of asthma and hypothyroidism. Met with patient during team rounds, and individually. Patient is alert and oriented, pleasant. She resides in [place] with her spouse, Emery. Her is retired from the [employer], and is currently a head waiter. Patient indicated he is going to be resigning as head waiter. Patient indicated that her primary care provider is in [place], and is wanting to get established with a provider that is part of this hospital, not in [place]. Stated, I think it's important to have someone closer than [place], and I don't want [facility] providers. Let her know that [facility] is accepting new patients, and can give her information at discharge. Stated, she would be interested. P: DCP to continue to follow closely, and will be available for provider resources. Delmy Amador RN/Skin Installer
[2020-04-27 12:12] LABS: Add Manual Diff / Slide Review NO; Basophils Absolute Auto 100 /uL (0-100); Basophils Percent Auto 0.7 % (0-2); Eosinophils Absolute Auto 100 /uL (0-450); Eosinophils Percent Auto 0.8 % (2-4); Hemoglobin 13.1 g/dL (12.0-16.0); Lymphocytes Absolute Auto 2300 /uL (1100-4500); Lymphocytes Percent Auto 28.8 % (25-40); Mean Corpuscular HGB Conc 33.6 % (30-36); Mean Corpuscular Hemoglobin 29.8 PG (26-34); Mean Corpuscular Volume 88.8 fL (80-100); Monocytes Absolute Auto 700 /uL (0-900); Neutrophils Absolute Auto 4800 /uL (1500-7000); Neutrophils Percent Auto 60.7 % (50-75); Platelet Count 295 X10^3/uL (150-400); Red Blood Cell Count 4.39 X10^6/uL (4.0-5.2); Red Cell Distribution Width 13.9 % (11.6-14.8); White Blood Cell Count 7.9 X10^3/uL (4.5-11.0)
[2020-04-27] MEDS: FLUTICASONE 120 SPRAY/16 GM SPRAY.SUSP NASAL (12:23)
[2020-04-27] MEDS: ACETAMINOPHEN 325 MG TABLET 650 MG PO ×3 (12:24→23:51)
[2020-04-27 12:33] LABS: BUN Creatinine Ratio 22.4 (6-22); Blood Urea Nitrogen 11 mg/dL (7-17); Calcium 8.8 mg/dL (8.4-10.2); Carbon Dioxide 28 mmol/L (22-32); Chloride 108 mmol/L (98-107); Estimated Glomerular Filt Rate > 60.0 mL/min (>60); Glucose 101 mg/dL (80-110); HEMOLYSIS < 15 (0-50); Potassium 3.8 mmol/L (3.4-5.1); Sodium 140 mmol/L (137-145)
[2020-04-27 12:34] LABS: Cholesterol 188 mg/dL (140-199); Creatine Kinase 34 U/L (30-135); HDL Cholesterol 44 mg/dL (40-60); LDL Cholesterol Calculated 98 mg/dL (<100); Triglycerides 232 mg/dL (35-150)
[2020-04-27 12:46] LABS: Troponin I < 0.012 ng/mL (0.01-0.034)
[2020-04-27] MEDS: PANTOPRAZOLE 40 MG TABLET PO (18:19)
[2020-04-28 01:00] VITALS: BP 93/52; PULSE 59
--- NOTE | 2020-04-28 01:56 | PC.NURSE ---
Addendum entered by Whitney Moreno R.N. 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 Original Note: Special Day Class Teacher Notes-Midnight does of PO metoprolol held, HR 55-60s at rest, BP 95/56(70), HR 80s while ambulating into BR with SBA, remains SR, denies dizziness. Tylenol given for headache.
[2020-04-28 03:00] VITALS: BP 85/49; PULSE 75
[2020-04-28 05:00] VITALS: BP 98/57; PULSE 59; RESP 15
[2020-04-28 05:21] LABS: Add Manual Diff / Slide Review NO; Basophils Absolute Auto 0 /uL (0-100); Basophils Percent Auto 0.6 % (0-2); Eosinophils Absolute Auto 200 /uL (0-450); Eosinophils Percent Auto 2.5 % (2-4); Hematocrit 33.8 % (36-46); Hemoglobin 11.3 g/dL (12.0-16.0); Lymphocytes Absolute Auto 2600 /uL (1100-4500); Lymphocytes Percent Auto 38.5 % (25-40); Mean Corpuscular HGB Conc 33.4 % (30-36); Mean Corpuscular Volume 89.7 fL (80-100); Monocytes Absolute Auto 500 /uL (0-900); Monocytes Percent Auto 8.2 % (3-14); Neutrophils Absolute Auto 3400 /uL (1500-7000); Neutrophils Percent Auto 50.2 % (50-75); Platelet Count 252 X10^3/uL (150-400); Red Blood Cell Count 3.77 X10^6/uL (4.0-5.2); Red Cell Distribution Width 13.9 % (11.6-14.8); White Blood Cell Count 6.7 X10^3/uL (4.5-11.0)
[2020-04-28 05:33] LABS: BUN Creatinine Ratio 25.5 (6-22); Blood Urea Nitrogen 14 mg/dL (7-17); Calcium 8.3 mg/dL (8.4-10.2); Carbon Dioxide 27 mmol/L (22-32); Chloride 112 mmol/L (98-107); Estimated Glomerular Filt Rate > 60.0 mL/min (>60); Glucose 94 mg/dL (80-110); HEMOLYSIS < 15 (0-50); Magnesium 2.1 mg/dL (1.6-2.3); Sodium 139 mmol/L (137-145)
[2020-04-28] MEDS: LEVOTHYROXINE 75 MCG TABLET PO (06:15)
[2020-04-28] MEDS: SODIUM CHLORIDE 0.9% 1,000 ML 100 ML IV (06:16)
[2020-04-28 07:00] VITALS: BP 123/60; PULSE 74; RESP 16; TEMP 36.5; O2SAT 95
--- NOTE | 2020-04-28 08:39 | PM.DS.1 ---
History of Present Illness History of Present Illness Date Patient Seen: 04/28/20 Chief complaint: thinks panic attack or heart attack Narrative: Martha Canales is a 64-year-old female with a history of ?benign? tachycardia who is been taking oral atenolol since her late 30s, acquired hypothyroidism, and asthma who has been under a lot of stress over the past several months. As she was falling asleep last night she stated that she felt like her heart was pounding. She did not have chest pain specifically. She checked her blood pressure as well as her heart rate and at that time measured her heart rate to be 158 and her blood pressure to be at 148/101. She became quite shaky and frightened and had her bring her here to the hospital. She states that she was cold and shaky Um and that she had tightness in her chest and was breathing quite fast. She has been noticing that she has been coughing a lot when lying down that is relieved by getting up. She has had quite a bit of urine output since being in the ED apparently from the fluids ever giving her, she states that she is had some diarrhea for which she takes Imodium him and was advised to monitor her for blood in her stool by her PCP. She also has chronic neck pain which tends to trigger dizzy spells when she turns her head a certain way. The patient has had a history of chest pain episodes. She was seen in the emergency department for chest pain and was told that she had reflux it was not well controlled and had changed her medication. She did undergo a stress test approximately 10 years ago due to the ?benign tachycardia?, she was told that she would probably have this lifelong however was told she had a low chance of a cardiac event. In the emergency department her EKG indicated atrial fibrillation with RVR and possible inferior subendocardial injury. At the time of my visit with her in the room her heart rate was ranging between 140-170 beats per minute. Currently she is afebrile, blood pressure is 135/90, heart rate is now 139, respiratory rate 20, oxygen saturation of 97% on room air, she weighs 80.4 kg the BMI of 32.9. CBC and chemistries are largely within normal limits, magnesium was 1.9, liver enzymes within normal limits, troponin was 0.12, TSH is elevated at 6.5, free T4 is pending and COVID-19 PCR is negative. Discharge Providers Provider Date of admission: 04/27/20 02:23 Discharge Date: 04/28/20 Primary care physician: Madelyn Mckeon MD Consults: 04/27/20 03:13 Consult to Cardiology Routine Comment: Consulting Provider: Romulo Menendez Reason for consultation: New onset atrial fibrillation w/RVR Has provider been notified: Yes Discharge provider: Justyna Robert MD Summary Hospital Course Discharge Diagnosis: 1. Atrial fibrillation with rapid ventricular response rate 2. Hypothyroidism 3. GERD 4. Allergic rhinitis 5. Asthma Hospital Course: The patient was admitted to the hospital for rapid atrial fibrillation. She was initially placed on IV Cardizem with minimal improvement. Metoprolol was added to her regimen. She was gradually tapered off the IV Cardizem. She was placed on Eliquis twice daily as well. The patient had improvement of her heart rate and ultimately converted to sinus rhythm. Her blood pressure was low normal. Her metoprolol dosing was adjusted and she will be discharged home on 25 mg twice daily plus Eliquis twice daily as well. The patient will be referred to cardiology here in [place]. She will follow with the primary care physician next week as well. At this time she has no complaints. No shortness of breath no chest pain or palpitations. Cardiac echo revealed Interpretation Summary 1) Normal left ventricular thickness, size, wall motion, and systolic function (EF 60-65%). 2) Normal right ventricular size and function. 3) No significant valvular abnormalities. 4) No prior Echo available for comparison. Status at Discharge Cognitive/behavioral status at discharge: oriented Functional status at discharge: independent ambulation Overall status at discharge: patient is back to baseline Time Spent with Patient Time spent: Less than 30 minutes Exam Vital Signs (past 8 hours): - 04/28/20 01:00 04/28/20 03:00 04/28/20 05:00 Temperature Pulse Rate 59 L 75 59 L Respiratory Rate 15 Blood Pressure 93/52 L 85/49 L 98/57 L Pulse Oximetry 04/28/20 07:00 Temperature 97.7 F Pulse Rate 74 Respiratory Rate 16 Blood Pressure 123/60 Pulse Oximetry 95 Oxygen Delivery Method Room Air Oxygen Flow Rate 0 Narrative Exam Narrative: Pleasant female in no acute distress Lungs: Clear to auscultation Cardiac exam: Regular rate rhythm normal S1-S2 Abdomen: Soft and nontender Extremities: No edema Objective Labs Result Diagrams: 04/28/20 04:48 04/28/20 04:48 Labs: Laboratory Results - last 24 hr 04/27/20 04/27/20 04/27/20 05:00 12:00 12:00 WBC 7.9 RBC 4.39 Hgb 13.1 Hct 39.0 MCV 88.8 MCH 29.8 MCHC 33.6 RDW 13.9 Plt Count 295 Neut % (Auto) 60.7 Lymph % (Auto) 28.8 [place] % (Auto) 9.0 Eos % (Auto) 0.8 L Baso % (Auto) 0.7 Neut # (Auto) 4800 Lymph # (Auto) 2300 [place] # (Auto) 700 Eos # (Auto) 100 Baso # (Auto) 100 Sodium 140 Potassium 3.8 Chloride 108 H Carbon Dioxide 28 BUN 11 Creatinine 0.49 L Estimated GFR > 60.0 BUN/Creatinine Ratio 22.4 H Glucose 101 Calcium 8.8 Magnesium Total Creatine Kinase 34 CK-MB (CK-2) TNP CK-MB (CK-2) Rel Index TNP Troponin I < 0.012 Triglycerides Cholesterol LDL Cholesterol, Calc HDL Cholesterol 04/27/20 04/28/20 04/28/20 12:00 04:48 04:48 WBC 6.7 RBC 3.77 L Hgb 11.3 L Hct 33.8 L MCV 89.7 MCH 30.0 MCHC 33.4 RDW 13.9 Plt Count 252 Neut % (Auto) 50.2 Lymph % (Auto) 38.5 [place] % (Auto) 8.2 Eos % (Auto) 2.5 Baso % (Auto) 0.6 Neut # (Auto) 3400 Lymph # (Auto) 2600 [place] # (Auto) 500 Eos # (Auto) 200 Baso # (Auto) 0 Sodium 139 Potassium 4.0 Chloride 112 H Carbon Dioxide 27 BUN 14 Creatinine 0.55 Estimated GFR > 60.0 BUN/Creatinine Ratio 25.5 H Glucose 94 Calcium 8.3 L Magnesium 2.1 Total Creatine Kinase CK-MB (CK-2) CK-MB (CK-2) Rel Index Troponin I Triglycerides 232 H Cholesterol 188 LDL Cholesterol, Calc 98 HDL Cholesterol 44 Discharge Assessment & Plan Assessment and Plan Assessment: Atrial fibrillation with rapid ventricular response rate now in normal sinus rhythm Plan of Treatment: Continue metoprolol 25 b.i.d. Continue Eliquis 5 mg b.i.d. follow-up with primary care physician next week Referral to cardiology [facility] Discharge Plan Discharge Plan Patient Disposition: Home Discharge orders & Medications Prescriptions: New metoprolol tartrate 25 mg tablet 25 mg PO BID Qty: 60 RF: 3 levothyroxine [Synthroid] 75 mcg Tablet 75 mcg PO 0600 Qty: 30 RF: 0 Eliquis 5 mg Tablet 5 mg PO BID Qty: 60 RF: 3 Continued albuterol sulfate 90 mcg/actuation HFA aerosol inhaler 1 puff inhalation PRN PRN (Reason: Shortness Of Breath) RF: 0 loperamide 2 mg Capsule 2 mg PO PRN PRN (Reason: Diarrhea) RF: 0 cetirizine 10 mg tablet 10 mg PO QPM RF: 0 pantoprazole 40 mg tablet,delayed release (DR/EC) 40 mg PO QPM RF: 0 fluticasone propionate 50 mcg/actuation spray,suspension 1 spray Intranasal DAILY PRN (Reason: Allergy Symptoms) RF: 0 Discontinued levothyroxine 50 mcg tablet 50 mcg PO DAILY RF: 0 atenolol 50 mg tablet 50 mg PO DAILY RF: 0 levothyroxine [Synthroid] 25 mcg tablet 25 mcg PO SEEINSTR RF: 0 Follow up/Referrals: Madelyn Mckeon MD [Primary Care Provider] - Discharge Health Status Multidrug resistant organism: No MDRO Diet/Activity/Treatments Diet: Low-fat and Low-sodium Activity: as tolerated Discharge Data Primary Care Provider: Madelyn Mckeon Quality VTE Deep Vein Thrombosis/Pulmonary Embolism Present on Admission: No
[2020-04-28] MEDS: APIXABAN 5 MG TABLET PO (08:50)
[2020-04-28] MEDS: METOPROLOL IR 25 MG TABLET PO (08:50)
[2020-04-28 09:03] VITALS: BP 126/77; PULSE 88; RESP 16; TEMP 36.4; O2SAT 96
[2020-04-28] MEDS: FLUTICASONE 120 SPRAY/16 GM SPRAY.SUSP NASAL (09:05)
--- NOTE | 2020-04-28 09:18 | PC.NURSE ---
Addendum entered by Clotilde Mae R.N. 04/28/20 12:00: removed iv access and reviewed post hospitalization plan and follow up plan as well meds- answered all questions to pt and spouse discharged to home at this time Original Note: PT DENIES ANY SOB/CHEST PAIN THIS AM- REPORTS SLEEPING WELL - HAS MAINTAINED NSR WITH OCC PVC- BLOOD PRESSURE ADEQUATE AND UP AND AROUND IN ROOM- ELIQUIS FOR ANTICOAGULATION AND HOPEFUL FOR DISCHARGE
[2020-04-28 11:00] VITALS: BP 120/69; PULSE 71; RESP 16; TEMP 36.8; O2SAT 96
[2020-04-28 11:24] LABS: Bacteria Urine None Seen; RBC Urine None Seen (0-5/HPF); WBC Urine None Seen (0-5/HPF)
[2020-04-28 11:25] LABS: Appearance Urine UA CLEAR; Bilirubin Urine UA NEGATIVE (NEGATIVE); Color Urine UA YELLOW; Glucose Urine UA NEGATIVE (Negative); Ketones Urine UA NEGATIVE (NEGATIVE); Leukocyte Esterase Urine UA NEGATIVE (NEGATIVE); Nitrite Urine UA NEGATIVE (Negative); Occult Blood Urine UA TRACE-LYSED (Negative); Protein Urine UA NEGATIVE (Negative); Urobilinogen Urine UA 0.2 E.U./dL (0.2)
[2020-04-28 11:29] LABS: Urine Comments Microscopic Normal
== END 2020-04-28 12:00 | disposition home or self-care (01) | DRG 310 ==
LOC: ED 02:09 → ICU 02:59 → AC 04-28 16:25
PROVIDERS: Admitting Provider Nurse Practitioner Family; Emergency Provider Emergency Medicine; Family Provider Internal Medicine; PCP Internal Medicine; Referring Provider Emergency Medicine; Visit Provider Nurse Practitioner Family
DX: I48.91 Unspecified atrial fibrillation (principal); E03.9 Hypothyroidism, unspecified; J45.909 Unspecified asthma, uncomplicated; K21.9 Gastro-esophageal reflux disease without esophagitis; Z11.59 Encounter for screening for other viral diseases
CPT/HCPCS: 36415; 71045; 80048; 80053; 80061; 81001; 81003; 82550; 83690; 83735; 83880; 84439; 84443; 84484; 85025; 85610; 87635; 87797; 93005; 93010; 93306; 94760; 96365; 96366; 99284; 99291; 99292; J1650

== ENCOUNTER 2020-04-30 16:12 | Emergency (ER) | payer MEDICARE, OTHER, SELFPAY ==
[2020-04-27 04:07] VITALS: BMI 33.5
[2020-04-30] VITALS (12 sets, daily range): BP systolic 129–179; BP diastolic 61–97; PULSE 87–118; RESP 15–24; TEMP 36.8; O2SAT 96–99; BMI 33.3
--- NOTE | 2020-04-30 16:45 | DI.RAD.S_ITS ---
PROCEDURE: XR CHEST 1V INDICATIONS: afib TECHNIQUE: One view of the chest was acquired. COMPARISON: [facility], CR, XR CHEST 1V, 04/27/2020, 1:09. FINDINGS: Surgical changes and devices: None. Lungs and pleura: Scattered subsegmental scarring and/or atelectasis. No acute consolidation. No pleural effusions or pneumothorax. Mediastinum: Mediastinal contours appear normal. Heart size is normal. Bones and chest wall: No suspicious bony lesions. Overlying soft tissues appear unremarkable. IMPRESSION: No acute disease. Dictated by: Ankit Marquez M.D. on 04/30/2020 at 16:57 Approved by: Ankit Marquez M.D. on 04/30/2020 at 16:58
[2020-04-30 16:52] LABS: Add Manual Diff / Slide Review NO; Basophils Absolute Auto 0 /uL (0-100); Basophils Percent Auto 0.6 % (0-2); Eosinophils Absolute Auto 100 /uL (0-450); Eosinophils Percent Auto 1.5 % (2-4); Hematocrit 39.5 % (36-46); Hemoglobin 13.4 g/dL (12.0-16.0); Lymphocytes Absolute Auto 1500 /uL (1100-4500); Lymphocytes Percent Auto 19.6 % (25-40); Mean Corpuscular HGB Conc 33.9 % (30-36); Mean Corpuscular Hemoglobin 30.2 PG (26-34); Mean Corpuscular Volume 89.3 fL (80-100); Monocytes Absolute Auto 700 /uL (0-900); Monocytes Percent Auto 9.2 % (3-14); Neutrophils Absolute Auto 5400 /uL (1500-7000); Neutrophils Percent Auto 69.1 % (50-75); Platelet Count 305 X10^3/uL (150-400); Red Blood Cell Count 4.43 X10^6/uL (4.0-5.2); Red Cell Distribution Width 13.7 % (11.6-14.8); White Blood Cell Count 7.8 X10^3/uL (4.5-11.0)
[2020-04-30] MEDS: SODIUM CHLORIDE 0.9% 1,000 ML 1000 ML IV (17:02)
[2020-04-30 17:05] LABS: BUN Creatinine Ratio 26.4 (6-22); Blood Urea Nitrogen 14 mg/dL (7-17); Calcium 9.2 mg/dL (8.4-10.2); Carbon Dioxide 28 mmol/L (22-32); Chloride 106 mmol/L (98-107); Creatine Kinase 65 U/L (30-135); Estimated Glomerular Filt Rate > 60.0 mL/min (>60); Glucose 104 mg/dL (80-110); HEMOLYSIS 18 (0-50); Magnesium 2.1 mg/dL (1.6-2.3); Sodium 139 mmol/L (137-145)
--- NOTE | 2020-04-30 17:08 | PC.NURSE ---
Reports chest pain resolved at this time. States has been feeling fluttering, increased heart rate and intermittent epigastric pain since discharge on monday.
[2020-04-30 17:17] LABS: Troponin I < 0.012 ng/mL (0.01-0.034)
[2020-04-30 17:37] LABS: Thyroid Stimulating Hormone 2.16 uIU/mL (0.47-4.68)
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
[2020-04-30 19:56] LABS: Troponin I < 0.012 ng/mL (0.01-0.034)
== END 2020-04-30 20:27 | disposition home or self-care (01) ==
PROVIDERS: Emergency Medicine; Emergency Provider Emergency Medicine; Family Provider Internal Medicine; PCP Internal Medicine
DX: R07.9 Chest pain, unspecified (principal); I48.91 Unspecified atrial fibrillation
CPT/HCPCS: 36415; 71045; 80048; 82550; 83735; 84443; 84484; 85025; 93005; 93010; 96360; 96361; 99284

== ENCOUNTER 2020-08-28 13:24 | Emergency (ER) | payer MEDICARE, OTHER, SELFPAY ==
[2020-04-27 04:07] VITALS: BMI 33.5
[2020-08-28 13:35] VITALS: BP 136/90; PULSE 90; RESP 16; TEMP 36.9; O2SAT 100; BMI 34.0
[2020-08-28 15:39] VITALS: BP 119/81; PULSE 79; RESP 16; O2SAT 99
--- NOTE | 2020-08-28 17:26 | PC.NURSE ---
No visible signs of infection
[2020-08-28 17:36] LABS: Add Manual Diff / Slide Review NO; Basophils Absolute Auto 100 /uL (0-100); Eosinophils Absolute Auto 100 /uL (0-450); Eosinophils Percent Auto 1.8 % (2-4); Hematocrit 40.5 % (36-46); Hemoglobin 13.4 g/dL (12.0-16.0); Lymphocytes Absolute Auto 2500 /uL (1100-4500); Mean Corpuscular Hemoglobin 29.2 PG (26-34); Mean Corpuscular Volume 88.6 fL (80-100); Monocytes Absolute Auto 600 /uL (0-900); Monocytes Percent Auto 7.5 % (3-14); Neutrophils Absolute Auto 4300 /uL (1500-7000); Neutrophils Percent Auto 56.7 % (50-75); Platelet Count 293 X10^3/uL (150-400); Red Blood Cell Count 4.57 X10^6/uL (4.0-5.2); White Blood Cell Count 7.5 X10^3/uL (4.5-11.0)
[2020-08-28 17:43] LABS: Alanine Aminotransferase 25 IU/L (<35); Albumin 4.2 g/dL (3.5-5.0); Albumin Globulin Ratio 1.3 (1.0-2.8); Alkaline Phosphatase 77 U/L (38-126); Aspartate Aminotransferase 26 IU/L (14-36); Bilirubin Total 0.2 mg/dL (0.2-1.3); Blood Urea Nitrogen 13 mg/dL (7-17); Calcium 9.2 mg/dL (8.4-10.2); Carbon Dioxide 30 mmol/L (22-32); Chloride 105 mmol/L (98-107); Estimated Glomerular Filt Rate > 60.0 mL/min (>60); Globulin 3.3 g/dL (1.7-4.1); Glucose 87 mg/dL (80-110); HEMOLYSIS < 15 (0-50); Potassium 3.9 mmol/L (3.4-5.1); Sodium 137 mmol/L (137-145); Total Protein 7.5 g/dL (6.3-8.2)
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
== END 2020-08-28 19:08 | disposition home or self-care (01) ==
PROVIDERS: Emergency Medicine; Emergency Provider Emergency Medicine; Family Provider Internal Medicine; PCP Internal Medicine
DX: R20.2 Paresthesia of skin (principal); R21 Rash and other nonspecific skin eruption; T50.Z95A Adverse effect of other vaccines and biological substances, initial encounter
CPT/HCPCS: 36415; 80053; 85025; 99281; 99283

== ENCOUNTER 2022-01-02 09:27 | Emergency (ER) | payer MEDICARE, OTHER, SELFPAY ==
[2020-04-27 04:07] VITALS: BMI 33.5
[2022-01-02] VITALS (16 sets, daily range): BP systolic 136–163; BP diastolic 68–98; PULSE 60–71; RESP 9–18; TEMP 36.9; O2SAT 95–100; BMI 34.3
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
[2022-01-02] MEDS: ACETAMINOPHEN 325 MG TABLET 975 MG PO (10:14)
[2022-01-02] MEDS: OXYCODONE IR 5 MG TABLET PO ×2 (10:15→13:20)
--- NOTE | 2022-01-02 11:19 | PC.NURSE ---
Ortho Doc. Dr Pinto at bedside
--- NOTE | 2022-01-02 11:24 | P.HP_ITS ---
History of Present Illness History of Present Illness Date Patient Seen: 01/02/22 Time Patient Seen: 11:24 Date of Onset of Symptoms: 01/02/22 Chief complaint: broken ankle Narrative: Patient is a 58-year-old female with a history of atrial fibrillation the presents after a slip and fall down stairs. She was coming down her carpeted stairs having to worship this morning when her right foot slipped and her left foot slammed into the wound for be low and then twisted she felt and heard a snap and was unable to weightbear and experienced excruciating pain. She was provisionally splinted by her . She noted the ankle was ?floppy? and presented to [facility] Emergency Room where x-rays were taken confirming a left broken ankle. She has a history of GERD and atrial fibrillation. She takes Eliquis at baseline last dose was this morning. Her certified meeting professional is Dr. Kauffman at [facility]. She states she last had an EKG few months ago with him without additional concerns. She was diagnosed with AFib about 2 years ago with hospi talization info in the [facility] system. States when she fell today she has some radial left wrist pain but is able to move it and some posterior right hip pain but is able to move this as well. Denies any history of diabetes. Starting to notice some tingling in the balls of both the at night possible neuropathy. Has had previous surgeries before [facility] ([place], [place]) and did fine with anesthesia except for nausea. Patient History Medical History (Updated 01/02/22 @ 11:35 by Danita Pinto MD) Degenerative disc disease GERD (gastroesophageal reflux disease) Hypothyroidism Osteoarthritis of multiple joints Tachycardia, paroxysmal Surgical History H/O partial thyroidectomy Status post cholecystectomy Status post hysterectomy Family & Social History Family History Father Hypertension Smoker in home Cancer Esophageal cancer Lung cancer Mother Smoker in home Hypertension Cancer Lung cancer Breast cancer Social History: household members spouse Safety & Behavioral: Feels Safe in Current Yes Environment Been Physically Hurt or No Threatened By a Person Tobacco & Substance use: Smoking Status Never smoker alcohol intake current alcohol intake frequency a few times a week Substance Use Type does not use Meds Home Medications and Allergies Home Medications Medication Instructions Recorded Confirmed Type cetirizine 10 mg tablet 10 mg PO QPM 05/17/18 04/27/20 History fluticasone propionate 50 1 spray intranasal DAILY PRN 05/17/18 04/27/20 History mcg/actuation nasal Allergy Symptoms spray,suspension pantoprazole 40 mg tablet,delayed 40 mg PO QPM 05/17/18 04/27/20 History release albuterol sulfate 90 mcg/actuation 1 puff inhalation PRN PRN 12/21/18 04/27/20 History aerosol inhaler Shortness Of Breath loperamide 2 mg capsule 2 mg PO PRN PRN Diarrhea 12/21/18 04/27/20 History apixaban 5 mg tablet (Eliquis) 5 mg PO BID #30 tabs 04/28/20 Rx levothyroxine 75 mcg capsule 75 mcg PO DAILY #30 caps 04/28/20 Rx levothyroxine 75 mcg tablet 75 mcg PO 0600 #30 tabs 04/28/20 Rx (Synthroid) metoprolol tartrate 25 mg tablet 25 mg PO BID #60 tabs 04/28/20 Rx metoprolol tartrate 25 mg tablet 25 mg PO BID #60 tabs 04/28/20 Rx Allergies Allergy/AdvReac Type Severity Reaction Status Date / Time Penicillins [PENICILLINS] Allergy Mild RASH Verified 04/30/20 16:33 doxycycline [DOXYCYCLINE] Allergy Unknown Verified 04/30/20 16:33 erythromycin base Allergy Unknown Verified 04/30/20 16:33 [ERYTHROMYCIN BASE] fluconazole [FLUCONAZOLE] Allergy Unknown Verified 04/30/20 16:33 metoclopramide Allergy Unknown Verified 04/30/20 16:33 [METOCLOPRAMIDE] Sulfa (Sulfonamide Allergy Unknown Verified 04/30/20 16:33 Antibiotics) tetracycline [TETRACYCLINE] Allergy Unknown Verified 04/30/20 16:33 Review of Systems Review of Systems Narrative: Endorses a history of AFib, GERD otherwise 10 point review of systems negative except for musculoskeletal complaints mentioned in the HPI Exam Vital Signs (past 8 hours): - 01/02/22 10:00 01/02/22 09:52 01/02/22 09:53 Temperature 98.5 F Pulse Rate 71 69 Respiratory Rate 18 Blood Pressure 163/98 H 163/98 H Pulse Oximetry 97 95 Oxygen Delivery Method Room Air 01/02/22 09:53 01/02/22 10:00 01/02/22 10:00 Temperature Pulse Rate 70 63 Respiratory Rate Blood Pressure 144/68 H Pulse Oximetry 97 96 Oxygen Delivery Method Oxygen Delivery Method Room Air Narrative Exam Narrative: General exam Alert oriented female no acute distress lying on stretcher in emergency room, patient's in the room with her HEENT exam is normocephalic atraumatic Respiratory exam is unremarkable on room air-lungs clear bilaterally Heart demonstrates AFib Musculoskeletal examination: Left lower extremity: Grossly normal alignment field splint in place. Wiggles toes. Tenderness along the lateral malleolus mostly. Mild tenderness medially. Negative proximal tib-fib squeeze. No pain or swelling around the knee. Brisk capillary refill. Palpable dorsalis pedis pulse. Sensation grossly intact to light touch. Motor exam other than toe motion unable to be assessed due to known acute injury at the ankle. Right lower extremity demonstrates negative log roll. Points to some pain in the posterior buttock did demonstrates tolerance to internal and external rotation of the hip. 5/5 knee flexion extension and ankle flexion extension Of the left bilateral upper extremities above the shoulders demonstrates wrist flexion extension bilaterally. Some soreness around the radial left wrist no bruising no ecchymosis full finger range of motion sensation. Objective Imaging Left ankle x-ray: My impression: AP mortise and lateral left ankle with field splint visualized externally demonstrate displaced lateral malleolus fracture Martinez B ankle fracture with lateral talar shift in medial clear space widening Labs Labs: Labs pending for COVID tests, CBC and BMP preoperative labs Assessment & Plan Assessment and plan (1) Fracture of lateral malleolus of left ankle: Status: Acute Plan Patient has a closed displaced lateral malleolus fracture with lateral talar shift and medial clear space widening. This unstable ankle fracture and she is indicated for operative fixation. She is on chronic anticoagulation with Eliquis last dose this morning. She will need to be off this 48 hours. We will plan for ORIF on Tuesday January 04, 2022. Patient is instructed that she will be called by surgery scheduling a tomorrow to give final time for surgery and anticipate NPO except for medications after midnight. She may take her beta barak. But will stop Eliquis which will then be restarted again after surgery. She will remain nonweightbearing. She will elevate at the heart level or above to help with swelling. She will undergo reduction and splinting by the emergency room. Plan is to get a COVID test, CBC and BMP while in the emergency room as preoperative testing and labs. Discussed Monday surgery would be an outpatient surgery. She recently saw her certified meeting professional few months ago with a EKG demonstrating her stable AFib no new concerns were noted at that time. Her certified meeting professional is Dr. Kauffman at [facility] The risks and benefits of the procedure have been discussed with the patient was given the opportunity to ask questions. The risks of surgery include but are not limited to infection, malunion, nonunion, persistence of pain, damage to nerves and blood vessels, posttraumatic arthritis, symptomatic hardware, DVT, PE, cardiopulmonary complications and . The patient expressed a thorough understanding of the risks and benefits of surgery and has elected to proceed. Consent was signed. COVID-19 COVID-19 status: Result pending Time Spent With Patient Time with patient: less than 30 minutes Critical Care time: I spent a total of [] minutes of critical care time on this patient's care today; this time is exclusive of procedural time. Quality VTE Deep Vein Thrombosis/Pulmonary Embolism Present on Admission: No
[2022-01-02 12:16] LABS: COVID19 -Nasal RAPID Negative (Negative)
[2022-01-02 12:40] LABS: Add Manual Diff / Slide Review NO; Basophils Absolute Auto 100 /uL (0-100); Basophils Percent Auto 0.6 % (0-2); Eosinophils Absolute Auto 100 /uL (0-450); Eosinophils Percent Auto 1.7 % (2-4); Hemoglobin 12.7 g/dL (12.0-16.0); Lymphocytes Absolute Auto 1500 /uL (1100-4500); Lymphocytes Percent Auto 17.9 % (25-40); Mean Corpuscular HGB Conc 33.4 % (30-36); Mean Corpuscular Hemoglobin 29.6 PG (26-34); Mean Corpuscular Volume 88.6 fL (80-100); Monocytes Absolute Auto 600 /uL (0-900); Monocytes Percent Auto 7.7 % (3-14); Neutrophils Absolute Auto 6000 /uL (1500-7000); Neutrophils Percent Auto 72.1 % (50-75); Platelet Count 305 X10^3/uL (150-400); Red Blood Cell Count 4.29 X10^6/uL (4.0-5.2); Red Cell Distribution Width 13.9 % (11.6-14.8); White Blood Cell Count 8.3 X10^3/uL (4.5-11.0)
[2022-01-02 12:45] LABS: BUN Creatinine Ratio 26.9 (6-22); Blood Urea Nitrogen 18 mg/dL (7-17); Calcium 8.9 mg/dL (8.4-10.2); Carbon Dioxide 27 mmol/L (22-32); Chloride 105 mmol/L (98-107); Estimated Glomerular Filt Rate > 60 mL/min (>60); Glucose 99 mg/dL (80-110); HEMOLYSIS 23 (0-50); Potassium 4.3 mmol/L (3.4-5.1); Sodium 136 mmol/L (137-145)
--- NOTE | 2022-01-02 12:52 | DI.RAD.S_ITS ---
PROCEDURE: XR ANKLE LT 2V INDICATIONS: post reduction TECHNIQUE: 2 views of the ankle were acquired. COMPARISON: [facility], CR, XR ANKLE LT MIN 3V, 01/02/2022, 10:08. FINDINGS/IMPRESSION: From prior examination there is improved alignment of the ankle. The ankle mortise is no near anatomic. The distal fibular fracture demonstrates m posterior and lateral displacement which is improved from prior examination with approximately 2 mm lateral and 5 mm posterior displacement. Suggestion of posterior malleolar fracture may represent artifact from adjacent fibular fracture not definitely appreciated on prior exam. Other findings unchanged. Dictated by: Nicolas Masterson D.O. on 01/02/2022 at 12:22 Approved by: Nicolas Masterson D.O. on 01/02/2022 at 12:27
[2022-01-02] MEDS: propofoL 200 MG/20 ML VIAL 180 MG IV (12:53)
--- NOTE | 2022-01-02 13:10 | ED.LOWEXIN ---
HPI - Extremity Injury (Lower) General Chief Complaint: Extremity Injury, Lower Stated Complaint: broken ankle Time Seen by Provider: 01/02/22 09:32 Source: patient and family Mode of arrival: Wheelchair Related Data Home Medications Medication Instructions Recorded Confirmed cetirizine 10 mg tablet 10 mg PO QPM 05/17/18 04/27/20 fluticasone propionate 50 1 spray intranasal DAILY PRN 05/17/18 04/27/20 mcg/actuation nasal Allergy Symptoms spray,suspension pantoprazole 40 mg tablet,delayed 40 mg PO QPM 05/17/18 04/27/20 release albuterol sulfate 90 mcg/actuation 1 puff inhalation PRN PRN 12/21/18 04/27/20 aerosol inhaler Shortness Of Breath loperamide 2 mg capsule 2 mg PO PRN PRN Diarrhea 12/21/18 04/27/20 Previous Rx's Medication Instructions Recorded apixaban 5 mg tablet (Eliquis) 5 mg PO BID #30 tabs 04/28/20 levothyroxine 75 mcg capsule 75 mcg PO DAILY #30 caps 04/28/20 levothyroxine 75 mcg tablet 75 mcg PO 0600 #30 tabs 04/28/20 (Synthroid) metoprolol tartrate 25 mg tablet 25 mg PO BID #60 tabs 04/28/20 metoprolol tartrate 25 mg tablet 25 mg PO BID #60 tabs 04/28/20 Allergies Allergy/AdvReac Type Severity Reaction Status Date / Time Penicillins [PENICILLINS] Allergy Mild RASH Verified 04/30/20 16:33 doxycycline [DOXYCYCLINE] Allergy Unknown Verified 04/30/20 16:33 erythromycin base Allergy Unknown Verified 04/30/20 16:33 [ERYTHROMYCIN BASE] fluconazole [FLUCONAZOLE] Allergy Unknown Verified 04/30/20 16:33 metoclopramide Allergy Unknown Verified 04/30/20 16:33 [METOCLOPRAMIDE] Sulfa (Sulfonamide Allergy Unknown Verified 04/30/20 16:33 Antibiotics) tetracycline [TETRACYCLINE] Allergy Unknown Verified 04/30/20 16:33 Patient History Medical History (Updated 01/02/22 @ 11:35 by Danita Pinto MD) Degenerative disc disease GERD (gastroesophageal reflux disease) Hypothyroidism Osteoarthritis of multiple joints Tachycardia, paroxysmal Surgical History H/O partial thyroidectomy Status post cholecystectomy Status post hysterectomy Family History Father Hypertension Smoker in home Cancer Esophageal cancer Lung cancer Mother Smoker in home Hypertension Cancer Lung cancer Breast cancer Social History household members: spouse Smoking Status: Never smoker alcohol intake: current substance use type: does not use Smoking Status: Never smoker alcohol intake frequency: a few times a week Alcohol type: wine Substance Use Type: does not use Exam Initial Vital Signs Initial Vital Signs: Vital Signs Pulse Rate 69 01/02/22 09:52 Pulse Oximetry 95 01/02/22 09:52 Course Orders Ordered: ED Orders 01/02/22 10:00 XR ankle LT min 3V Stat XR tibia fibula LT 2V Stat 01/02/22 11:45 COVID19 -Nasal RAPID/Pre-Proc Stat 01/02/22 12:36 BMP [Basic Metabolic Panel] Stat CBC Auto Diff [Complete Blood Count AUTO DIFF] Stat 01/02/22 12:52 XR ankle LT 2V Stat Discontinued Medications Acetaminophen (Acetaminophen 325 Mg Tablet) 975 mg PO NOW ONE Stop: 01/02/22 10:01 Last Admin: 01/02/22 10:14 Dose: 975 mg Documented By: BRIGID Oxycodone HCl (Oxycodone Ir 5 Mg Tablet) 5 mg PO NOW ONE Stop: 01/02/22 10:01 Last Admin: 01/02/22 10:15 Dose: 5 mg Documented By: BRIGID Propofol (Propofol 200 Mg/20 Ml Vial) 180 mg 2 mg/kg (180 mg) IV NOW ONE Stop: 01/02/22 12:37 Last Admin: 01/02/22 12:53 Dose: 80 mg Documented By: [facility] Vital Signs Vital signs: Vital Signs - 8 hr 01/02/22 10:00 01/02/22 09:52 01/02/22 09:53 Temperature 98.5 F Pulse Rate 71 69 Respiratory Rate 18 Blood Pressure 163/98 H 163/98 H Pulse Oximetry 97 95 Oxygen Delivery Method Room Air Oxygen Flow Rate 01/02/22 09:53 01/02/22 10:00 01/02/22 10:00 Temperature Pulse Rate 70 63 Respiratory Rate Blood Pressure 144/68 H Pulse Oximetry 97 96 Oxygen Delivery Method Oxygen Flow Rate 01/02/22 10:30 01/02/22 10:30 01/02/22 11:00 Temperature Pulse Rate 65 Respiratory Rate Blood Pressure 162/78 H 157/81 H Pulse Oximetry 97 Oxygen Delivery Method Oxygen Flow Rate 01/02/22 11:00 01/02/22 11:30 01/02/22 11:30 Temperature Pulse Rate 64 62 Respiratory Rate Blood Pressure 142/76 H Pulse Oximetry 96 95 Oxygen Delivery Method Oxygen Flow Rate 01/02/22 12:44 01/02/22 12:54 01/02/22 11:59 Temperature Pulse Rate 60 66 66 Respiratory Rate 12 18 15 Blood Pressure 152/79 H Pulse Oximetry 99 97 Oxygen Delivery Method Oxygen Flow Rate 2 01/02/22 11:59 01/02/22 12:00 01/02/22 12:30 Temperature Pulse Rate 65 Respiratory Rate 11 L Blood Pressure 145/76 H 152/79 H Pulse Oximetry 97 Oxygen Delivery Method Oxygen Flow Rate 01/02/22 12:30 01/02/22 12:46 01/02/22 12:46 Temperature Pulse Rate 65 67 Respiratory Rate 15 9 L Blood Pressure 147/83 H Pulse Oximetry 99 99 Oxygen Delivery Method Oxygen Flow Rate 01/02/22 12:52 01/02/22 12:52 Temperature Pulse Rate 61 Respiratory Rate 12 Blood Pressure 139/84 Pulse Oximetry 99 Oxygen Delivery Method Oxygen Flow Rate MDM - Extremity Injury (Lower) Lab Data Result diagrams: 01/02/22 12:36 01/02/22 12:36 Labs: Lab Results 01/02/22 01/02/22 01/02/22 Range/Units 11:45 12:36 12:36 WBC 8.3 (4.5-11.0) X10^3/uL RBC 4.29 (4.0-5.2) X10^6/uL Hgb 12.7 (12.0-16.0) g/dL Hct 38.0 (36-46) % MCV 88.6 (80-100) fL MCH 29.6 (26-34) PG MCHC 33.4 (30-36) % RDW 13.9 (11.6-14.8) % Plt Count 305 (150-400) X10^3/uL Neut % (Auto) 72.1 (50-75) % Lymph % (Auto) 17.9 L (25-40) % Hampton % (Auto) 7.7 (3-14) % Eos % (Auto) 1.7 L (2-4) % Baso % (Auto) 0.6 (0-2) % Neut # (Auto) 6000 (7635-3912) /uL Lymph # (Auto) 1500 (1210-6801) /uL Hampton # (Auto) 600 (0-900) /uL Eos # (Auto) 100 (0-450) /uL Baso # (Auto) 100 (0-100) /uL Sodium 136 L (137-145) mmol/L Potassium 4.3 (3.4-5.1) mmol/L Chloride 105 (98-107) mmol/L Carbon Dioxide 27 (22-32) mmol/L BUN 18 H (7-17) mg/dL Creatinine 0.67 (0.52-1.04) mg/dL Estimated GFR > 60 (>60) mL/min BUN/Creatinine Ratio 26.9 H (6-22) Glucose 99 (80-110) mg/dL Calcium 8.9 (8.4-10.2) mg/dL SARS-CoV-2 (PCR) Negative (Negative) Point of Care Testing Test Results Not applicable Discharge Plan Departure Prescriptions: No Action albuterol sulfate 90 mcg/actuation HFA aerosol inhaler 1 puff inhalation PRN PRN (Reason: Shortness Of Breath) loperamide 2 mg Capsule 2 mg PO PRN PRN (Reason: Diarrhea) levothyroxine [Synthroid] 75 mcg Tablet 75 mcg PO 0600 Qty: 30 0RF metoprolol tartrate 25 mg tablet 25 mg PO BID Qty: 60 3RF metoprolol tartrate 25 mg tablet 25 mg PO BID Qty: 60 3RF Eliquis 5 mg tablet 5 mg PO BID Qty: 30 3RF levothyroxine 75 mcg capsule 75 mcg PO DAILY Qty: 30 3RF cetirizine 10 mg tablet 10 mg PO QPM pantoprazole 40 mg tablet,delayed release (DR/EC) 40 mg PO QPM fluticasone propionate 50 mcg/actuation spray,suspension 1 spray Intranasal DAILY PRN (Reason: Allergy Symptoms) Referrals: Madelyn Mckeon MD [Primary Care Provider] -
== END 2022-01-02 13:58 | disposition home or self-care (01) ==
PROVIDERS: Emergency Provider Family Medicine Addiction Medicine; Family Provider Internal Medicine; PCP Internal Medicine
DX: S82.62XA Displaced fracture of lateral malleolus of left fibula, initial encounter for closed fracture (principal); W10.9XXA Fall (on) (from) unspecified stairs and steps, initial encounter; Z79.01 Long term (current) use of anticoagulants; Z20.822 Contact with and (suspected) exposure to COVID-19
CPT/HCPCS: 27788; 29515; 73590; 73600; 73610; 80048; 85025; 87635; 99152; 99284; 99285; C9803; J2704

== ENCOUNTER 2022-01-04 06:21 | Day surgery (SDC) | payer MEDICARE, OTHER, SELFPAY ==
[2020-04-27 04:07] VITALS: BMI 33.5
[2022-01-04] VITALS (11 sets, daily range): BP systolic 93–138; BP diastolic 46–85; PULSE 68–78; RESP 11–20; TEMP 36.2–36.6; O2SAT 94–98; BMI 34.3
--- NOTE | 2022-01-04 | DI.RAD.S_ITS ---
PROCEDURE: XR ANKLE LT 2V INDICATIONS: LT ANKLE ORIF TECHNIQUE: Multiple views of the ankle were acquired. COMPARISON: [facility], CR, XR ANKLE LT MIN 3V, 01/02/2022, 10:08. [facility], CR, XR TIBIA FIBULA LT 2V, 01/02/2022, 10:08. [facility], CR, XR ANKLE LT 2V, 01/02/2022, 12:53. FINDINGS: 7 intraoperative fluoroscopy images demonstrate ORIF of lateral malleolar fracture. Surgical plate and multiple surgical screws are noted. IMPRESSION: ORIF of lateral malleolar fracture. Dictated by: Boubacar Ochoa M.D. on 01/04/2022 at 17:31 Approved by: Boubacar Ochoa M.D. on 01/05/2022 at 9:03
[2022-01-04] MEDS: LACTATED RINGERS 1,000 ML 42 ML IV ×2 (07:20→09:19)
[2022-01-04] MEDS: ACETAMINOPHEN 325 MG TABLET 975 MG PO (07:21)
--- NOTE | 2022-01-04 07:24 | PM.PREOP ---
Pre-operative Note COVID-19 COVID-19 status: Negative Result date/Date tested (Pos, Neg/Pending): 01/02/22 Interval Note History & Physical reviewed/Exam performed by Physician: Yes Changes to H&P: No
[2022-01-04] MEDS: APREPITANT 40 MG CAPSULE PO (07:35)
[2022-01-04] MEDS: CEFAZOLIN 2 GM/20 ML SYRINGE IV (08:02)
[2022-01-04] MEDS: BUPIVACAINE 0.5% (PF) 30 ML, EPINEPHrine 0.15 MG INJ (08:14)
--- NOTE | 2022-01-04 08:17 | SUR.OPER ---
Supine on padded OR bed, head on pillow, arms secured on padded arm boards at <90 degrees abduction, legs uncrossed, safety belt at waist, tape over blanket over lower right leg, left leg draped free with gel bump under left hip
--- NOTE | 2022-01-04 09:21 | P.OP_ITS ---
Operative Date/Time/Diagnoses Date of procedure: 01/04/22 Time of procedure: 08:00 Pre-op diagnosis: Closed displaced fracture lateral malleolus left ankle CPT code S82.62XA Post-op diagnosis: same Procedure & Clinicians Procedure: Open reduction internal fixation lateral malleolus left ankle CPT code 94877 Same procedure as scheduled: Yes Indications: Patient is a 66-year-old female that fell down the bottom few stairs on 01/01/[address] to [place]. She twisted her left ankle felt a pop and was unable to weightbear and had immediate pain swelling. She was evaluated [facility] found to have a displaced left ankle fracture bimalleolar equivalent injury with lateral talar shift. She had a closed reduction in the emergency room and was indicated for surgery to restore and hold alignment reduce the risks of posttraumatic arthritis. Patient takes Eliquis for AFib at baseline. Doses were held preoperatively and surgery was scheduled. The risks and benefits of the procedure have been discussed with the patient was given the opportunity to ask questions. The risks of surgery include but are not limited to infection, malunion, nonunion, persistence of pain, damage to nerves and blood vessels, posttraumatic arthritis, DVT, PE, cardiopulmonary complications and . The patient expressed a thorough understanding of the risks and benefits of surgery and has elected to proceed. Consent was signed. Surgeon: Danita Pinto Click Yes if Unassisted: Yes Anesthesia Type: General and Local Operative Notes Findings: Displaced long oblique lateral malleolus fracture was fixed with a 3.5 lag screw and a posterior lateral plate. After ORIF of the lateral malleolus the syndesmosis was stressed under live fluoroscopy and was stable. Additionally the deltoid was stressed and no syndesmotic widening or talar tilt were noted. Closure Type: primary Specimen(s): none sent Prosthetic devices, grafts, tissues, transplants, or devices: Arthrex 8 hole 1/3 tubular plate (3.5 locking screws distal, 3.5 cortical screws proximal) 1x3.5 lag screw--inter frag screw Estimated Blood Loss (mL): 15 Blood products transfused: none Tourniquet time (min): 37 Procedure in detail: In the preoperative holding area, the appropriate limb and sites were marked, consent was again reviewed with the patient and all questions answered. The patient was brought to the operating room, placed on the operating table and given anesthetic. Following successful levels of anesthesia, the patient was appropriately padded, position secured to the table. An SCD was placed on the contralateral leg. All bony prominences were well padded. A well-padded thigh tourniquet was placed. The surgical leg was then prepped and draped in the usual sterile fashion. A formal time-out procedure was completed confirming the patient, site and side of surgery and administration of appropriate preoperative antibiotics. All were in agreement. An Esmarch bandage was utilized to exsanguinate the limb and the tourniquet was raised on the thigh to 250 mmHg. A posterior Lateral incision was made over the fibula-between the fibula and peroneals. Dissection was carried through the skin and subcutaneous tissue to the level of the fibula. The fracture was exposed and cleaned of debris. The fracture was then opened up with a lamina paying teller and a lateral view with the C-arm was taken to confirm no evidence of posterior malleolar fracture. The lateral malleolus Fracture was reduced, restoring length rotation and anatomic alignment. This was stabilized with 1x 3.5 mm lag screw anterior to posterior. Next a 8 hole 1/3 tubular locking neutralization plate from the Arthrex set was placed and secured in standard fashion. This was secured posterior laterally along the fibula taking care to make sure it was out of the peroneal groove. The superficial peroneal nerve was observed and protected proximally in the incision. Appropriate implant positioning was confirmed on intraoperative fluoro. Ankle was stressed under fluoroscopic imaging an external rotation and fibular manipulation using the bone clamp/hook. The syndesmosis was felt to be stable. Next the deltoid was stressed with talar tilt and there was no evidence of widening or tilt. Stability was confirmed under fluoro. The wounds were irrigated. We were quite satisfied with result clinically and radiographically. The tourniquet was released, and hemostasis achieved. The deep tissue was closed with 2 O Vicryl. Subcutaneous tissue was closed with 4 0 Monocryl in the skin with 3 O nylon. A sterile bulky Mtz dressing and U splint were applied. All counts were correct. The patient was then awoken and transported to recovery room in good condition. There no known immediate complications from this procedure. Complications: none Post-operative Condition: stable Disposition: PACU Plan for aftercare: Nonweightbearing--touchdown for balance okay until follow-up. Elevate above the heart level as much as possible. Ice 20 minutes/hour Will restart Eliquis on postop day 1. [facility]
[2022-01-04] MEDS: fentaNYL 100 MCG/2 ML INJ IV ×4 (09:33→09:57)
[2022-01-04] MEDS: PROMETHAZINE 25 MG TABLET 12.5 MG PO (09:37)
[2022-01-04] MEDS: KETOROLAC 30 MG/ML VIAL IV (10:10)
[2022-01-04] MEDS: OXYCODONE IR 5 MG TABLET PO ×2 (10:12→10:40)
--- NOTE | 2022-01-04 10:17 | SUR.PHASEI ---
1010 Dr Pinto to bedside. updated on patient pain level. See new order for one time dose Torodol. No NSAIDS at home. Tylenol and oxycodone for pain.
[2022-01-04] MEDS: hydrOXYzine 50 MG/ML INJ 25 MG IM (11:39)
== END 2022-01-04 12:20 | disposition home or self-care (01) ==
PROVIDERS: Family Provider Internal Medicine; PCP Internal Medicine; Referring Provider Orthopaedic Surgery Foot and Ankle Surgery; Visit Provider Orthopaedic Surgery Foot and Ankle Surgery
PROC: (CPT 27792; principal; 2022-01-04 07:45)
DX: S82.62XA Displaced fracture of lateral malleolus of left fibula, initial encounter for closed fracture (principal); W10.9XXA Fall (on) (from) unspecified stairs and steps, initial encounter; Y92.009 Unspecified place in unspecified non-institutional (private) residence as the place of occurrence of the external cause; I48.91 Unspecified atrial fibrillation; Z79.01 Long term (current) use of anticoagulants
CPT/HCPCS: 27792; 73600; 76000; J0171; J0690; J1100; J1885; J2250; J2405; J2704; J3010; J3410; J8501

== ENCOUNTER 2022-10-20 10:27 | Emergency (ER) | payer MEDICARE, OTHER, SELFPAY ==
[2020-04-27 04:07] VITALS: BMI 33.5
[2022-10-20 10:37] VITALS: BP 159/86; PULSE 66; RESP 16; TEMP 36.9; O2SAT 96; BMI 34.3
--- NOTE | 2022-10-20 10:41 | DI.RAD.S_ITS ---
PROCEDURE: XR CHEST 2V INDICATIONS: cough, R sided pleuritic chest pain TECHNIQUE: 2 views of the chest were acquired. COMPARISON: [facility], CR, XR CHEST 1V, 04/30/2020, 16:48. [facility], CR, XR CHEST 1V, 04/27/2020, 1:09. FINDINGS: Lungs and pleura: Lungs are clear. No pleural effusions or pneumothorax. Mediastinum: Mediastinal contours are normal. Heart size is normal. Bones and chest wall: No suspicious bony abnormalities. Soft tissues appear unremarkable. IMPRESSION: No acute cardiopulmonary abnormality. Dictated by: Haider Reyes M.D. on 10/20/2022 at 11:03 Approved by: Haider Reyes M.D. on 10/20/2022 at 11:05
--- NOTE | 2022-10-20 11:06 | ED_ITS ---
HPI - URI/Sore Throat General Chief Complaint: Upper Respiratory Symptoms Stated Complaint: chest infection/back pain T-1 Time Seen by Provider: 10/20/22 10:34 Source: patient Mode of arrival: Ambulatory History of Present Illness HPI Narrative: 67-year-old female nonsmoker with history of AFib on anticoagulation presents with her in the chief complaint of various upper respiratory symptoms over the past week including runny nose, nasal congestion and sneezing as well as a dry and hacking cough. She has no fever or chills and denies any shortness of breath. She states that her cough has not been productive of sputum but over the past day or 2 she is started developing severe right-sided chest pain which is worse with cough, deep breath and she noticed it while lying down last night. She does not have pain while at rest. She denies exertional symptoms or unexplained fatigue. She is had no nausea, vomiting or diarrhea and is otherwise well. She denies any rash. Related Data Home Medications Medication Instructions Recorded Confirmed cetirizine 10 mg tablet 10 mg PO QPM 05/17/18 01/04/22 fluticasone propionate 50 1 spray intranasal DAILY PRN 05/17/18 01/04/22 mcg/actuation nasal Allergy Symptoms spray,suspension pantoprazole 40 mg tablet,delayed 40 mg PO QPM 05/17/18 01/04/22 release albuterol sulfate 90 mcg/actuation 1 puff inhalation PRN PRN 12/21/18 01/04/22 aerosol inhaler Shortness Of Breath loperamide 2 mg capsule 2 mg PO PRN PRN Diarrhea 12/21/18 01/04/22 flecainide 50 mg tablet 1 tab PO BID 01/04/22 01/04/22 metoprolol tartrate 25 mg tablet 75 mg PO BID 01/04/22 01/04/22 Previous Rx's Medication Instructions Recorded apixaban 5 mg tablet (Eliquis) 5 mg PO BID #30 tabs 04/28/20 levothyroxine 75 mcg capsule 75 mcg PO DAILY #30 caps 04/28/20 acetaminophen 500 mg capsule 1,000 mg PO Q8HR #30 caps 01/04/22 ondansetron 4 mg disintegrating 4 mg PO Q8H PRN nausea and 01/04/22 tablet vomiting #5 tabs oxycodone 5 mg tablet 5 - 10 mg PO Q4H PRN pain #40 tabs 01/04/22 benzonatate 200 mg capsule 200 mg PO BID PRN cough #20 caps 10/20/22 Allergies Allergy/AdvReac Type Severity Reaction Status Date / Time Penicillins [PENICILLINS] Allergy Mild RASH Verified 10/20/22 10:38 doxycycline [DOXYCYCLINE] Allergy Unknown Verified 10/20/22 10:38 erythromycin base Allergy Unknown Verified 10/20/22 10:38 [ERYTHROMYCIN BASE] fluconazole [FLUCONAZOLE] Allergy Unknown Verified 10/20/22 10:38 metoclopramide Allergy Unknown Verified 10/20/22 10:38 [METOCLOPRAMIDE] Sulfa (Sulfonamide Allergy Unknown Verified 10/20/22 10:38 Antibiotics) tetracycline [TETRACYCLINE] Allergy Unknown Verified 10/20/22 10:38 Review of Systems Review of Systems Narrative: GENERAL: Denies chills, fatigue, malaise, fever, sweats. HEENT: Denies sinus pain, ear pain, sore throat, difficulty swallowing, dizziness. RESPIRATORY: See HPI CARDIOVASCULAR: See HPI GASTROINTESTINAL: Denies nausea, vomiting, abdominal pain, diarrhea, constipation, melena. : Denies dysuria, frequency, incontinence, hematuria, urinary retention. MUSCULOSKELETAL: denies weakness, joint pain, or bony pain SKIN: Denies rash, skin lesions, or other NEUROLOGIC: Denies weakness, headache, numbness, change in speech, confusion, seizures, incoordination. PSYCHIATRIC: No concerning psychosocial issues. 12 point review of systems is negative except for those stated above Patient History Medical History (Updated 10/20/22 @ 12:28 by Alec Tian DO) Degenerative disc disease GERD (gastroesophageal reflux disease) Hypothyroidism Osteoarthritis of multiple joints Tachycardia, paroxysmal Surgical History H/O partial thyroidectomy Status post cholecystectomy Status post hysterectomy Family History Father Hypertension Smoker in home Cancer Esophageal cancer Lung cancer Mother Smoker in home Hypertension Cancer Lung cancer Breast cancer Social History household members: spouse Smoking Status: Never smoker alcohol intake: current substance use type: does not use Smoking Status: Never smoker alcohol intake frequency: holidays/special occasions only Alcohol type: wine Substance Use Type: does not use Exam Narrative Exam Narrative: GENERAL: [67] year old patient appears stated age. Well-developed patient, in mild distress. HEAD: Atraumatic. Normocephalic. EYES: Pupils equal round and reactive. Extraocular motions intact. No scleral icterus. No injection or drainage. ENT: Nose without bleeding, purulent drainage. Throat without erythema, tonsillar hypertrophy or exudate. Airway patent. NECK: Trachea midline. Non tender CARDIOVASCULAR: Regular rate and rhythm without murmurs, gallops, or rubs. RESPIRATORY: Clear to auscultation. Breath sounds equal bilaterally. No wheezes, rales, or rhonchi. GASTROINTESTINAL: Abdomen soft, non-tender, nondistended. EXTREMITIES: No edema or joint tenderness. BACK: Nontender without deformity or crepitance. No flank tenderness. NEURO: AOx3. SKIN: No rash or erythema of visible areas Initial Vital Signs Initial Vital Signs: Vital Signs Temperature 98.5 F 10/20/22 10:37 Pulse Rate 66 10/20/22 10:37 Respiratory Rate 16 10/20/22 10:37 Blood Pressure 159/86 H 10/20/22 10:37 Pulse Oximetry 96 10/20/22 10:37 Oxygen Delivery Method Room Air 10/20/22 10:37 Course Orders Ordered: ED Orders 10/20/22 10:41 Chest [XR chest 2V] Stat 10/20/22 10:42 Respiratory Panel (Film Array) Stat Vital Signs Vital signs: Vital Signs - 8 hr 10/20/22 10:37 Temperature 98.5 F Pulse Rate 66 Respiratory Rate 16 Blood Pressure 159/86 H Pulse Oximetry 96 Oxygen Delivery Method Room Air MDM - URI/Sore Throat Lab Data Labs: Lab Results 10/20/22 Range/Units 10:42 Chlamy pneumoniae PCR Not detected (Not Detect) Adenovirus (PCR) Not detected (Not Detect) B. pertussis DNA (PCR) Not detected (Not Detecte) B.parapertussis DNA PCR Not detected (Not Detecte) Coronavirus OC43 (PCR) Not detected (Not Detect) Coronavirus HKU1 (PCR) Not detected (Not Detect) Coronavirus 229E (PCR) Not detected (Not Detect) SARS-CoV-2 (PCR) Not detected (Not Detecte) Coronavirus NL63 (PCR) Not detected (Not Detect) Human Metapneumovir PCR Not detected (Not Detect) Influenza Type A (PCR) Not detected (Not Detect) Influenza Type B (PCR) Not detected (Not Detect) M. pneumoniae (PCR) Not detected (Not Detect) Parainfluenza 1 (PCR) Not detected (Not Detect) Parainfluenza 2 (PCR) Not detected (Not Detect) Parainfluenza 3 (PCR) Detected H (Not Detect) Parainfluenza 4 (PCR) Not detected (Not Detect) RSV (PCR) Not detected (Not Detect) Entero/Rhino (PCR) Not detected (Not Detect) MDM Narrative Medical decision making narrative: [67] year old patient presents with cough and right-sided chest pain, pleuritic in nature Multiple etiologies for patient's symptoms considered including, but not limited to: [Pneumonia, pneumothorax, costochondritis, viral etiology versus other] Prior Charts reviewed in our EMR Primary Historian: patient Labs reviewed and interpreted by myself: Respiratory panel positive for parainfluenza Imaging reviewed: Chest x-ray without acute findings Patient with very reassuring history and physical exam, stable vital signs, clear lungs and sharp and stabbing right-sided chest pain associated with cough and deep breath. She has no evidence of pneumonia on exam, no fever and no productive cough, chest x-ray is clear of infiltrate, pneumothorax or rib fracture. There is no evidence of rash, crepitance or external manifestation of disease or injury. We talked about the utility of coverage for atypical pneumonias and given her long list of allergies and antibiotic intolerance with relatively minor symptoms we sure the opinion that it is not worth the risk at this time. Findings and discharge diagnosis discussed with patient/family followed by verbalization of understanding Return precautions discussed with patient/family whom verbalize understanding of diagnosis and plan Discharge Plan Departure Patient Disposition: Home Clinical Impression: Parainfluenza, Painful rib Instructions: DI for Viral Upper Respiratory Infection -- Adult Activity Restrictions/Additional Instructions: *You have been diagnosed with [viral upper respiratory infection from parainfluenza. As we discussed your history and physical exam are reassuring, the respiratory panel was positive for parainfluenza virus and chest x-ray showed no pneumonia, collapsed lung, rib fracture or other significant abnormality] *What to do: *Please continue to take your regular medications as directed. [x ] New medication prescriptions sent to your pharmacy: [[facility] ] [ ] New medication written as a paper prescription [ ] No new medications given *Please follow up with your primary care provider in 2-3 days, call for an appointment. Let them know you were seen in the Emergency Department and that we ask that you be seen in follow up. We will electronically transmit a record of today's note if your PCP is in our system *If you do not have a primary care provider please contact the [facility] Resource line at [phone]. They will ask some questions about your medical history and help get you set up with a doctor in the community. *Return to Emergency Department if you should have any new, worsening or concerning symptoms, such as [fever greater than 101 F, shaking chills, worsening pain, persistent vomiting or other bothersome symptoms] Prescriptions: New benzonatate 200 mg capsule 200 mg PO BID PRN (Reason: cough) Qty: 20 0RF No Action albuterol sulfate 90 mcg/actuation HFA aerosol inhaler 1 puff inhalation PRN PRN (Reason: Shortness Of Breath) Patient Comments: hasnt used in few years loperamide 2 mg Capsule 2 mg PO PRN PRN (Reason: Diarrhea) Eliquis 5 mg tablet 5 mg PO BID Qty: 30 3RF levothyroxine 75 mcg capsule 75 mcg PO DAILY Qty: 30 3RF metoprolol tartrate 25 mg tablet 75 mg PO BID flecainide 50 mg tablet 1 tab PO BID oxycodone 5 mg tablet 5 - 10 mg PO Q4H PRN (Reason: pain) Qty: 40 0RF Rx Instructions: postop acute ondansetron 4 mg tablet,disintegrating 4 mg PO Q8H PRN (Reason: nausea and vomiting) Qty: 5 0RF acetaminophen 500 mg capsule 1,000 mg PO Q8HR Qty: 30 0RF cetirizine 10 mg tablet 10 mg PO QPM pantoprazole 40 mg tablet,delayed release (DR/EC) 40 mg PO QPM fluticasone propionate 50 mcg/actuation spray,suspension 1 spray Intranasal DAILY PRN (Reason: Allergy Symptoms) Referrals: Madelyn Mckeon MD [Primary Care Provider] - Stand Alone Forms: Patient Portal/API
[2022-10-20 11:53] LABS: Adenovirus Not Detected (Not Detect); B. parapertussis Not Detected (Not Detecte); Bordetella pertussis Not Detected (Not Detecte); Chlamydophila pneumoniae Not Detected (Not Detect); Coronavirus 229E Not Detected (Not Detect); Coronavirus HKU1 Not Detected (Not Detect); Coronavirus NL 63 Not Detected (Not Detect); Coronavirus OC43 Not Detected (Not Detect); Human Metapneumovirus Not Detected (Not Detect); Human Rhinovirus/Enterovirus Not Detected (Not Detect); Influenza A Not Detected (Not Detect); Influenza B Not Detected (Not Detect); Mycoplasma pneumoniae Not Detected (Not Detect); Parainfluenza Virus 1 Not Detected (Not Detect); Parainfluenza Virus 2 Not Detected (Not Detect); Parainfluenza Virus 3 Detected (Not Detect); Parainfluenza Virus 4 Not Detected (Not Detect); Respiratory Syncytial Virus Not Detected (Not Detect); SARS- CoV-2 Not Detected (Not Detecte)
[2022-10-20 12:36] VITALS: BP 158/64; PULSE 74; RESP 20; TEMP 37.2; O2SAT 100
== END 2022-10-20 12:39 | disposition home or self-care (01) ==
PROVIDERS: Emergency Provider Emergency Medicine; Family Provider Internal Medicine; PCP Internal Medicine
DX: J06.9 Acute upper respiratory infection, unspecified (principal); B34.8 Other viral infections of unspecified site; R07.81 Pleurodynia; Z79.01 Long term (current) use of anticoagulants; Z20.822 Contact with and (suspected) exposure to COVID-19
CPT/HCPCS: 71046; 87633; 99281; 99283

== ENCOUNTER 2024-12-25 07:33 | Emergency (ER) | payer MEDICARE, OTHER, SELFPAY ==
[2020-04-27 04:07] VITALS: BMI 33.5
[2024-12-25 07:41] VITALS: BP 163/78; O2SAT 96
[2024-12-25 07:46] VITALS: BP 163/78; PULSE 62; RESP 15; TEMP 36.6; O2SAT 99; BMI 32.4
--- NOTE | 2024-12-25 07:55 | ED.EYEPROB ---
HPI - Eye Problem General Chief complaint: Eye Problems Stated complaint: Possible detached retina. x 1 day Time Seen by Provider: 12/25/24 07:36 Source: patient Mode of arrival: Ambulatory History of Present Illness HPI Narrative: 69-year-old female history atrial fibrillation on anticoagulation, cataract surgery done in [place] by Dr. Kaur to 3 years ago presents with right eye problem whereby she describes floaters that started yesterday afternoon while looking in every direction up down left right and center along with flashes of light when the room is dark that has not gone away on its own localized to the right eye. Patient denies trauma, headache, dizziness, cough, runny nose, sore throat, ear pain, fever, or chills or sore throat. Other than what is stated 14 point review of system is negative Related Data Home Medications ?Medication ?Instructions ?Recorded ?Confirmed cetirizine 10 mg tablet 10 mg PO QPM 05/17/18 01/04/22 fluticasone propionate 50 1 spray intranasal DAILY PRN 05/17/18 01/04/22 mcg/actuation nasal Allergy Symptoms spray,suspension pantoprazole 40 mg tablet,delayed 40 mg PO QPM 05/17/18 01/04/22 release albuterol sulfate 90 mcg/actuation 1 puff inhalation PRN PRN 12/21/18 01/04/22 aerosol inhaler Shortness Of Breath loperamide 2 mg capsule 2 mg PO PRN PRN Diarrhea 12/21/18 01/04/22 flecainide 50 mg tablet 1 tab PO BID 01/04/22 01/04/22 metoprolol tartrate 25 mg tablet 75 mg PO BID 01/04/22 01/04/22 Previous Rx's ?Medication ?Instructions ?Recorded apixaban 5 mg tablet (Eliquis) 5 mg PO BID #30 tabs 04/28/20 levothyroxine 75 mcg capsule 75 mcg PO DAILY #30 caps 04/28/20 acetaminophen 500 mg capsule 1,000 mg (2 x 500 mg) PO Q8HR #30 01/04/22 caps ondansetron 4 mg disintegrating 4 mg PO Q8H PRN nausea and 01/04/22 tablet vomiting #5 tabs oxycodone 5 mg tablet 5 - 10 mg (1 - 2 x 5 mg) PO Q4H 01/04/22 PRN pain #40 tabs benzonatate 200 mg capsule 200 mg PO BID PRN cough #20 caps 10/20/22 Allergies Allergy/AdvReac Type Severity Reaction Status Date / Time Penicillins (PENICILLINS) Allergy Mild RASH Verified 01/15/23 16:36 doxycycline (DOXYCYCLINE) Allergy Unknown Verified 01/15/23 16:36 erythromycin base Allergy Unknown Verified 01/15/23 16:36 (ERYTHROMYCIN BASE) fluconazole (FLUCONAZOLE) Allergy Unknown Verified 01/15/23 16:36 metoclopramide Allergy Unknown Verified 01/15/23 16:36 (METOCLOPRAMIDE) Sulfa (Sulfonamide Allergy Unknown Verified 01/15/23 16:36 Antibiotics) tetracycline (TETRACYCLINE) Allergy Unknown Verified 01/15/23 16:36 Review of Systems Review of Systems ROS Unobtainable: All systems reviewed & are unremarkable except as noted in HPI and below Patient History Medical History (Updated 12/25/24 @ 08:38 by David Hall DO) Tachycardia, paroxysmal Hypothyroidism GERD (gastroesophageal reflux disease) Osteoarthritis of multiple joints Degenerative disc disease Surgical History Status post hysterectomy H/O partial thyroidectomy Status post cholecystectomy Family History Father Hypertension Smoker in home Cancer Esophageal cancer Lung cancer Mother Smoker in home Hypertension Cancer Lung cancer Breast cancer Social History household members: spouse Smoking Status: Smoker, status unknown alcohol intake: current substance use type: does not use Smoking Status: Smoker, status unknown alcohol intake frequency: holidays/special occasions only Alcohol type: wine Exam Narrative Exam Narrative: GENERAL: [69] year old patient appears stated age. Well-developed patient, in mild distress. HEAD: Atraumatic. Normocephalic. EYES: Pupils equal round and reactive. Extraocular motions intact. No scleral icterus. No injection or drainage. ENT: Nose without bleeding, purulent drainage. Throat without erythema, tonsillar hypertrophy or exudate. Airway patent. NECK: Trachea midline. Non tender EXTREMITIES: No edema or joint tenderness. BACK: Nontender without deformity or crepitance. No flank tenderness. NEURO: AOx3.GCS 15 nonfocal neuro exam SKIN: No rash or erythema of visible areas Initial Vital Signs Initial Vital Signs: Vital Signs Temperature 98 F 12/25/24 07:46 Pulse Rate 62 12/25/24 07:46 Respiratory Rate 15 12/25/24 07:46 Blood Pressure 163/78 H 12/25/24 07:46 Pulse Oximetry 99 12/25/24 07:46 Oxygen Delivery Method Room Air 12/25/24 07:46 Course Vital Signs Vital signs: Vital Signs - 8 hr 12/25/24 07:46 Temperature 98 F Pulse Rate 62 Respiratory Rate 15 Blood Pressure 163/78 H Pulse Oximetry 99 Oxygen Delivery Method Room Air MDM - Eye Problem MDM Narrative Medical decision making narrative: Vital signs, nurse triage note, medication list, previous ER visits, and all imaging reviewed. Visual acuity left was 20/25 right his 20/30, and both eyes 20/25. Rich-Pen was not working correctly unable to obtain intra-ocular pressure correctly. Wood's lamp with proparacaine drops applied did not show any acute process. Differential diagnosis includes retinal detachment, acute closure glaucoma, retinal hemorrhage, central retinal artery and venous occlusion. Case discussed with Dr. Ho claim auditor on-call who has graciously accepted the patient for workup in the clinic today upon discharge from the ER Discharge Plan Departure Patient Disposition: Home Clinical Impression: Floaters in visual field Qualifiers: Laterality: right Qualified Code(s): H43.391 - Other vitreous opacities, right eye Prescriptions: No Action albuterol sulfate 90 mcg/actuation HFA aerosol inhaler 1 puff inhalation PRN PRN (Reason: Shortness Of Breath) Patient Comments: hasnt used in few years loperamide 2 mg Capsule 2 mg PO PRN PRN (Reason: Diarrhea) Eliquis 5 mg tablet 5 mg PO BID Qty: 30 3RF levothyroxine 75 mcg capsule 75 mcg PO DAILY Qty: 30 3RF metoprolol tartrate 25 mg tablet 75 mg PO BID flecainide 50 mg tablet 1 tab PO BID oxycodone 5 mg tablet 5 - 10 mg PO Q4H PRN (Reason: pain) Qty: 40 0RF Rx Instructions: postop acute ondansetron 4 mg tablet,disintegrating 4 mg PO Q8H PRN (Reason: nausea and vomiting) Qty: 5 0RF acetaminophen 500 mg capsule 1,000 mg PO Q8HR Qty: 30 0RF cetirizine 10 mg tablet 10 mg PO QPM pantoprazole 40 mg tablet,delayed release (DR/EC) 40 mg PO QPM fluticasone propionate 50 mcg/actuation spray,suspension 1 spray Intranasal DAILY PRN (Reason: Allergy Symptoms) benzonatate 200 mg capsule 200 mg PO BID PRN (Reason: cough) Qty: 20 0RF Referrals: Madelyn Mcekon MD [Primary Care Provider, Internal Medicine] Stand Alone Forms: Patient Portal/API
[2024-12-25] MEDS: PROPARACAINE 0.5% OPHTH SOL 1 DROPS EYE-RIGHT (08:03)
[2024-12-25] MEDS: FLUORESCEIN 1 MG STRIP EYE-RIGHT (08:53)
[2024-12-25 09:14] VITALS: BP 145/79; PULSE 65; RESP 17; O2SAT 97
[2024-12-25 09:17] VITALS: BP 145/79; PULSE 62; RESP 19; O2SAT 97
== END 2024-12-25 09:18 | disposition home or self-care (01) ==
PROVIDERS: Emergency Provider Family Medicine; Family Provider Internal Medicine; PCP Internal Medicine
DX: H43.391 Other vitreous opacities, right eye (principal)
CPT/HCPCS: 99282

== ENCOUNTER 2025-03-13 19:29 | Emergency (ER) | payer MEDICARE, OTHER, SELFPAY ==
[2020-04-27 04:07] VITALS: BMI 33.5
[2025-03-13] VITALS (9 sets, daily range): BP systolic 129–161; BP diastolic 75–94; PULSE 58–75; RESP 7–20; TEMP 36.6; O2SAT 91–98; BMI 32.5
--- NOTE | 2025-03-13 19:46 | EKG_ITS ---
[address] [address] Test Date: 2025-03-13 Pat Name: Martha Canales Department: [facility] Room: Gender: Female Air Grinder: CINDA YORK : 1955 Requested By: Order Number: [id number] Reading MD: Constantine Mccoy Measurements Intervals [place] Rate: 75 P: 64 MO: 198 QRS: 40 QRSD: 84 T: 63 QT: 394 QTc: 439 Interpretive Statements Normal sinus rhythm Electronically Signed On 03-17-2025 16:44:49 PDT by Constantine Mccoy
--- NOTE | 2025-03-13 19:57 | DI.RAD.S_ITS ---
PROCEDURE: XR CHEST 1V INDICATIONS: Chest Pain TECHNIQUE: One view of the chest was acquired. COMPARISON: Merged With [facility], CR, XR CHEST 2V, 10/20/2022, 10:40. Merged With [facility], CR, XR CHEST 1V, 04/30/2020, 16:48. FINDINGS: Surgical changes and devices: None. Lungs and pleura: Lungs are clear. No pleural effusions or pneumothorax. Mediastinum: Mediastinal contours appear normal. Heart size is normal. Bones and chest wall: No suspicious bony lesions. Overlying soft tissues appear unremarkable. IMPRESSION: No acute cardiopulmonary abnormality is seen. Dictated by: Krish Mcneill M.D. on 03/13/2025 at 20:43 Approved by: Krish Mcneill M.D. on 03/13/2025 at 20:44
[2025-03-13 20:32] LABS: Add Manual Diff / Slide Review NO; Hematocrit 40.2 % (36-46); Hemoglobin 13.6 g/dL (12.0-16.0); Lymphocytes Absolute Auto 2100 /uL (1100-4500); Mean Corpuscular HGB Conc 33.9 % (30-36); Mean Corpuscular Hemoglobin 30.2 PG (26-34); Mean Corpuscular Volume 89.1 fL (80-100); Platelet Count 307 X10^3/uL (150-400)
[2025-03-13 20:35] LABS: INR 1.1 (0.9-1.3); Prothrombin Time 12.5 SECONDS (9.4-12.5)
[2025-03-13 20:37] LABS: PTT Partial Thromboplastin Tim 31 SECONDS (25.1-36.5)
[2025-03-13 20:48] LABS: Alanine Aminotransferase 18 IU/L (<35); Albumin 4.4 g/dL (3.5-5.0); Albumin Globulin Ratio 1.2 (1.0-2.8); Alkaline Phosphatase 72 U/L (38-126); Blood Urea Nitrogen 18 mg/dL (7-17); Calcium 9.9 mg/dL (8.4-10.2); Carbon Dioxide 26 mmol/L (22-32); Chloride 104 mmol/L (98-107); Creatine Kinase 40 U/L (30-135); Estimated Glomerular Filt Rate > 60 mL/min (>60); Globulin 3.7 g/dL (1.7-4.1); Glucose 105 mg/dL (70-99); HEMOLYSIS 38 (0-50); Lipase 112 U/L (23-300); Magnesium 1.8 mg/dL (1.6-2.3); Potassium 4.3 mmol/L (3.4-5.1); Sodium 138 mmol/L (137-145); Total Protein 8.1 g/dL (6.3-8.2)
[2025-03-13 20:59] LABS: NT-proBNP (BNP-Adult 18+) 215 pg/mL (<125); Troponin I < 0.012 ng/mL (0.01-0.034)
[2025-03-13 21:16] LABS: Influenza A - CEPHEID Flu A NEGATIVE (NEGATIVE); Influenza B - CEPHEID Flu B NEGATIVE (NEGATIVE)
[2025-03-13 21:17] LABS: COVID-19 CEPHEID 4-PLEX PCR Negative (Negative)
--- NOTE | 2025-03-13 22:45 | EKG_ITS ---
[address] [address] Test Date: 2025-03-13 Pat Name: Martha Canales Department: [facility] Room: Gender: Female 3D Designer: CINDA CHELA : 1955 Requested By: Order Number: [id number] Reading MD: Constantine Mccoy Measurements Intervals [place] Rate: 68 P: 69 SD: 194 QRS: 46 QRSD: 84 T: 58 QT: 430 QTc: 457 Interpretive Statements Normal sinus rhythm Electronically Signed On 03-17-2025 16:45:05 PDT by Constantine Mccoy
[2025-03-13 22:55] LABS: Troponin I < 0.012 ng/mL (0.01-0.034)
[2025-03-13] MEDS: MAG HYDROX/ALUMINUM/SIMETH SUS 30 ML, LIDOCAINE VISCOUS 2% 15 ML PO (23:41)
--- NOTE | 2025-03-13 23:49 | PC.NURSE ---
Pt states CP is improved, now 10/17. Requesting to eat/drink and take her routine nighttime meds. Dr Barton notified, order recieved for GI cocktail and home meds OK. Pt now tolerating PO water and yogurt. Took home meds including metoprolol, flecanide, eliquis, and protonix.
[2025-03-14] VITALS (8 sets, daily range): BP systolic 125–163; BP diastolic 60–71; PULSE 62–80; RESP 12–19; TEMP 36.9; O2SAT 94–97
--- NOTE | 2025-03-14 00:09 | ED.CHESTPAIN ---
HPI - Chest Pain General Chief Complaint: Chest Pain Stated Complaint: chest pain x 1 hr Time Seen by Provider: 03/13/25 20:26 Source: patient, RN notes reviewed and old records reviewed Mode of arrival: Ambulatory Limitations: no limitations History of Present Illness HPI narrative: 69-year-old female history of atrial fibrillation on a Eliquis, flecainide and metoprolol, hypothyroidism presents with complaint of substernal chest pain radiating to the back, pleuritic but also worse with movement and drinking water. Patient states last night she has a little bit symptoms after lemon cake with lemon juice all questions. She states acid often causes her heartburn. She took Tums and it improved. It reoccurred in the afternoon around 1 she had became increasingly intense. She describes it as substernal did radiate to her back. She states it has since resolved. She states it was broke still present when she arrived. She describes as pleuritic and very painful to take a deep inhalation. Denies fevers or chills. Had some nausea but no vomiting. No issues with bowel movements or urination. She has notes a little bit of cough but it is nonproductive. Little bit of sore throat recently. No new swelling of extremities. No diaphoresis or swelling. States she has never had any interventions to her heart, she is on Eliquis, flecainide and metoprolol for atrial fibrillation, states that she did check her rhythm and was never in AFib or tachycardic. She also notes history of hypothyroidism. She has had prior cholecystectomy, hysterectomy, shoulder and ankle surgery. Reports multiple allergies to medications. No tobacco, 2 alcoholic drinks monthly, no recreational drugs. Primary care is Madelyn Mckeon. Related Data Home Medications ?Medication ?Instructions ?Recorded ?Confirmed cetirizine 10 mg tablet 10 mg PO QPM 05/17/18 01/04/22 fluticasone propionate 50 1 spray intranasal DAILY PRN 05/17/18 01/04/22 mcg/actuation nasal Allergy Symptoms spray,suspension pantoprazole 40 mg tablet,delayed 40 mg PO QPM 05/17/18 01/04/22 release albuterol sulfate 90 mcg/actuation 1 puff inhalation PRN PRN 12/21/18 01/04/22 aerosol inhaler Shortness Of Breath loperamide 2 mg capsule 2 mg PO PRN PRN Diarrhea 12/21/18 01/04/22 flecainide 50 mg tablet 1 tab PO BID 01/04/22 01/04/22 metoprolol tartrate 25 mg tablet 75 mg PO BID 01/04/22 01/04/22 Previous Rx's ?Medication ?Instructions ?Recorded apixaban 5 mg tablet (Eliquis) 5 mg PO BID #30 tabs 04/28/20 levothyroxine 75 mcg capsule 75 mcg PO DAILY #30 caps 04/28/20 acetaminophen 500 mg capsule 1,000 mg (2 x 500 mg) PO Q8HR #30 01/04/22 caps ondansetron 4 mg disintegrating 4 mg PO Q8H PRN nausea and 01/04/22 tablet vomiting #5 tabs oxycodone 5 mg tablet 5 - 10 mg (1 - 2 x 5 mg) PO Q4H 01/04/22 PRN pain #40 tabs benzonatate 200 mg capsule 200 mg PO BID PRN cough #20 caps 10/20/22 Allergies Allergy/AdvReac Type Severity Reaction Status Date / Time Penicillins (PENICILLINS) Allergy Mild RASH Verified 01/15/23 16:36 doxycycline (DOXYCYCLINE) Allergy Unknown Verified 01/15/23 16:36 erythromycin base Allergy Unknown Verified 01/15/23 16:36 (ERYTHROMYCIN BASE) fluconazole (FLUCONAZOLE) Allergy Unknown Verified 01/15/23 16:36 metoclopramide Allergy Unknown Verified 01/15/23 16:36 (METOCLOPRAMIDE) Sulfa (Sulfonamide Allergy Unknown Verified 01/15/23 16:36 Antibiotics) tetracycline (TETRACYCLINE) Allergy Unknown Verified 01/15/23 16:36 Review of Systems Review of Systems ROS Unobtainable: All systems reviewed & are unremarkable except as noted in HPI and below Patient History Medical History (Updated 03/14/25 @ 01:58 by Cathy Barton DO) Tachycardia, paroxysmal Hypothyroidism GERD (gastroesophageal reflux disease) Osteoarthritis of multiple joints Degenerative disc disease Surgical History Status post hysterectomy H/O partial thyroidectomy Status post cholecystectomy Family History Father Hypertension Smoker in home Cancer Esophageal cancer Lung cancer Mother Smoker in home Hypertension Cancer Lung cancer Breast cancer Social History household members: spouse Smoking Status: Never smoker alcohol intake: current substance use type: does not use Smoking Status: Never smoker alcohol intake frequency: holidays/special occasions only Alcohol type: wine Exam Narrative Exam Narrative: GENERAL: Alert and oriented x three, female in mild distress HEENT: Head normocephalic, atraumatic, EOMI, pupils reactive, face symmetric, moist mucous membranes NECK: Supple, full range of motion CARDIOVASCULAR: Regular rate and rhythm without murmurs, rubs or gallops. No JVD. No edema bilateral lower extremities. RESPIRATORY: Breath sounds equal bilaterally, no wheezes rales or rhonchi. ABDOMEN: Soft, nontender. Normoactive bowel sounds all 4 quadrants. No guarding or rebound, rigidity, no mass, no pulsatile mass or bruit. : No CVA tenderness EXTREMITIES: Normal range of motion, no clubbing or edema. Neurovascularly intact NEUROLOGICAL: Cranial nerves II through XII grossly intact. Moving all extremities SKIN: Warm, dry, no petechiae, no rashes or lesions. Initial Vital Signs Initial Vital Signs: Vital Signs Temperature 97.9 F 03/13/25 19:47 Pulse Rate 75 03/13/25 19:47 Respiratory Rate 20 03/13/25 19:47 Blood Pressure 149/94 H 03/13/25 19:47 Pulse Oximetry 98 03/13/25 19:47 Oxygen Delivery Method Room Air 03/13/25 19:47 Course Orders Ordered: ED Orders 03/13/25 19:46 EKG-12 Lead Stat 03/13/25 19:57 XR chest 1V Stat EKG-12 Lead Stat 03/13/25 20:18 Complete Blood Count AUTO DIFF Stat Comprehensive Metabolic Panel Stat Lipase Stat Magnesium Stat NT-proBNP (BNP-Adult 18+) Stat PTT Partial Thromboplastin Vlad Stat Prothrombin Time INR Stat Troponin & CK Cardiac Panel Stat 03/13/25 20:27 Covid-19 + FLU A/B + RSV - PCR Stat 03/13/25 22:10 EKG-12 Lead Stat 03/13/25 22:18 Trop I [Troponin I] Stat 03/14/25 00:33 CT angio chest PE protocol Stat Discontinued Medications Aspirin (Aspirin 81 Mg Chew Tab) 324 mg PO NOW ONE Stop: 03/13/25 19:58 Last Admin: 03/13/25 21:57 Dose: Not Given Documented By: GUCCI Al Hydrox/Mg Hydrox/Simethicone 30 ml/ Lidocaine HCl 15 ml 0 ml PO NOW ONE Stop: 03/13/25 23:33 Last Admin: 03/13/25 23:41 Dose: 45 ml Documented By: SGMassimo Vital Signs Vital signs: Vital Signs - 8 hr 03/13/25 21:09 03/13/25 21:10 03/13/25 21:30 Temperature Pulse Rate 63 64 61 Respiratory Rate 14 11 L Blood Pressure 143/75 H Pulse Oximetry 95 96 97 Oxygen Delivery Method 03/13/25 21:30 03/13/25 22:00 03/13/25 22:22 Temperature Pulse Rate 58 L 72 Respiratory Rate 16 Blood Pressure 140/78 Pulse Oximetry 91 96 Oxygen Delivery Method 03/13/25 22:22 03/13/25 22:30 03/13/25 22:30 Temperature Pulse Rate 68 Respiratory Rate 9 L Blood Pressure 130/84 129/83 Pulse Oximetry 95 Oxygen Delivery Method 03/13/25 23:00 03/13/25 23:00 03/13/25 23:30 Temperature Pulse Rate 69 Respiratory Rate 7 L Blood Pressure 154/82 H 161/91 H Pulse Oximetry 95 Oxygen Delivery Method 03/13/25 23:30 03/14/25 00:00 03/14/25 00:01 Temperature Pulse Rate 73 68 71 Respiratory Rate 20 15 18 Blood Pressure Pulse Oximetry 96 94 95 Oxygen Delivery Method 03/14/25 00:01 03/14/25 00:30 03/14/25 00:31 Temperature Pulse Rate 76 80 Respiratory Rate 19 17 Blood Pressure 125/63 Pulse Oximetry 95 95 Oxygen Delivery Method 03/14/25 00:31 03/14/25 00:57 03/14/25 00:57 Temperature Pulse Rate 69 Respiratory Rate 12 Blood Pressure 163/67 H 132/70 Pulse Oximetry 97 Oxygen Delivery Method 03/14/25 01:00 03/14/25 01:00 03/14/25 01:30 Temperature Pulse Rate 68 62 Respiratory Rate 17 13 Blood Pressure 137/71 Pulse Oximetry 96 94 Oxygen Delivery Method 03/14/25 01:30 03/14/25 02:12 Temperature 98.4 F Pulse Rate 63 Respiratory Rate 18 Blood Pressure 139/67 141/60 H Pulse Oximetry 94 Oxygen Delivery Method Room Air MDM - Chest Pain Lab Data 03/13/25 20:18 03/13/25 20:18 Labs: Lab Results 03/13/25 03/13/25 03/13/25 Range/Units 20:18 20:27 22:18 WBC 8.0 (4.5-11.0) X10^3/uL RBC 4.51 (4.0-5.2) X10^6/uL Hgb 13.6 (12.0-16.0) g/dL Hct 40.2 (36-46) % MCV 89.1 (80-100) fL MCH 30.2 (26-34) PG MCHC 33.9 (30-36) % RDW 14.3 (11.6-14.8) % Plt Count 307 (150-400) X10^3/uL Neut % (Auto) 61.1 (50-75) % Lymph % (Auto) 26.3 (25-40) % [place] % (Auto) 8.8 (3-14) % Eos % (Auto) 2.7 (2-4) % Baso % (Auto) 1.1 (0-2) % Neut # (Auto) 4900 (5755-5254) /uL Lymph # (Auto) 2100 (7746-7541) /uL [place] # (Auto) 700 (0-900) /uL Eos # (Auto) 200 (0-450) /uL Baso # (Auto) 100 (0-100) /uL PT 12.5 (9.4-12.5) SECONDS INR 1.1 (0.9-1.3) APTT 31 (25.1-36.5) SECONDS Sodium 138 (137-145) mmol/L Potassium 4.3 (3.4-5.1) mmol/L Chloride 104 (98-107) mmol/L Carbon Dioxide 26 (22-32) mmol/L BUN 18 H (7-17) mg/dL Creatinine 0.59 (0.52-1.04) mg/dL Estimated GFR > 60 (>60) mL/min BUN/Creatinine Ratio 30.5 H (6-22) Glucose 105 H (70-99) mg/dL Calcium 9.9 (8.4-10.2) mg/dL Magnesium 1.8 (1.6-2.3) mg/dL Total Bilirubin 0.4 (0.2-1.3) mg/dL AST 30 (14-36) IU/L ALT 18 (<35) IU/L Alkaline Phosphatase 72 (38-126) U/L Total Creatine Kinase 40 (30-135) U/L Troponin I < 0.012 < 0.012 (0.01-0.034) ng/mL NT-Pro-B Natriuret Pep 215 H (<125) pg/mL Total Protein 8.1 (6.3-8.2) g/dL Albumin 4.4 (3.5-5.0) g/dL Globulin 3.7 (1.7-4.1) g/dL Albumin/Globulin Ratio 1.2 (1.0-2.8) Lipase 112 (23-300) U/L SARS-CoV-2 (PCR) Negative (Negative) Influenza A (RT-PCR) Flu a negative (NEGATIVE) Influenza B (RT-PCR) Flu b negative (NEGATIVE) RSV (PCR) Negative (Negative) ECG Data Attestation: I personally reviewed and interpreted this ECG as follows: Prior ECG tracings: available for review Interpretation: Sinus rhythm rate of 75 ID 198 QRS 84 QTC of 439, no acute ST-elevation or depression. Patient has a prior EKG from 09/04/2019 which appears similar. Repeat EKG shows sinus rhythm rate of 68, ID 194 QRS 84 QTC of 457, some nonspecific change in the lateral leads. No acute ST elevation. [facility] Narrative Medical decision making narrative: EKG sinus rhythm, repeat EKG shows nonspecific change. Labs normal CBC, coags are negative, chemistries are appropriate BUN 18 creatinine 0.59 glucose is 105 LFTs are negative troponins less than 0.012 with a repeat troponin less than 0.012 and a BNP of 215. Patient has a COVID/influenza/RSV which is negative. Chest x-ray shows no acute cardiopulmonary abnormality. CT angio no PE, no acute cardiopulmonary process, ground-glass nodule right lower lobe measuring 7 mm scattered pulmonary micro nodules recommend follow up CT in 6-12 months. 69-year-old female with pleuritic substernal chest pain which has since improved did have a GI cocktail here which she states seemed to be helpful as well. Does have a history of atrial fibrillation no cardiac stents. Patient's cardiac workup so far is negative, CT angio PE protocol shows no PE, no does show ground-glass nodule 7 mm with some micro nodules discussed follow up with CT in 612th months with the patient. Discussed chest Pain observation patient defers prefers to return home. Discharge Plan Departure Patient Disposition: Home Clinical Impression: Pulmonary nodule Chest pain Qualifiers: Chest pain type: unspecified Qualified Code(s): R07.9 - Chest pain, unspecified Instructions: DI for Chest Pain Activity Restrictions/Additional Instructions: Your imaging does show a 7 mm ground-glass pulmonary nodule as well as some scattered micro pulmonary nodules is recommended you have CT follow up in 6-12 months. Please return if you have new or worsening symptoms, recurrent chest pain, shortness of breath, lightheadedness or passing out, persistent vomiting, new swelling of your extremities or other new or concerning changes. Prescriptions: No Action albuterol sulfate 90 mcg/actuation HFA aerosol inhaler 1 puff inhalation PRN PRN (Reason: Shortness Of Breath) Patient Comments: hasnt used in few years loperamide 2 mg Capsule 2 mg PO PRN PRN (Reason: Diarrhea) Eliquis 5 mg tablet 5 mg PO BID Qty: 30 3RF levothyroxine 75 mcg capsule 75 mcg PO DAILY Qty: 30 3RF metoprolol tartrate 25 mg tablet 75 mg PO BID flecainide 50 mg tablet 1 tab PO BID oxycodone 5 mg tablet 5 - 10 mg PO Q4H PRN (Reason: pain) Qty: 40 0RF Rx Instructions: postop acute ondansetron 4 mg tablet,disintegrating 4 mg PO Q8H PRN (Reason: nausea and vomiting) Qty: 5 0RF acetaminophen 500 mg capsule 1,000 mg PO Q8HR Qty: 30 0RF cetirizine 10 mg tablet 10 mg PO QPM pantoprazole 40 mg tablet,delayed release (DR/EC) 40 mg PO QPM fluticasone propionate 50 mcg/actuation spray,suspension 1 spray Intranasal DAILY PRN (Reason: Allergy Symptoms) benzonatate 200 mg capsule 200 mg PO BID PRN (Reason: cough) Qty: 20 0RF Referrals: Madelyn Mckeon MD [Primary Care Provider, Internal Medicine] Stand Alone Forms: Patient Portal/API
--- NOTE | 2025-03-14 00:09 | PC.NURSE ---
Pt states her pain has now subsided and feels better after GI cocktail. Pt ready to go home
--- NOTE | 2025-03-14 00:33 | DI.CT.S_ITS ---
PROCEDURE: CT ANGIO CHEST PE PROTOCOL INDICATIONS: substernal chest pain, radiated to back, resolved. TECHNIQUE: After the administration of intravenous contrast, 2 mm thick sections acquired from the pulmonary apices to the posterior costophrenic angles. 3-dimensional maximum intensity projection (MIP) coronal and sagittal reformats were then acquired through the thorax. For radiation dose reduction, the following was used: automated exposure control, adjustment of mA and/or kV according to patient size. COMPARISON: None. FINDINGS: Image quality: Diagnostic. Pulmonary arteries: Pulmonary arteries are normal in size, and demonstrate no intraluminal filling defects to suggest central pulmonary embolism. Lower Neck: No enlarged lymph nodes. Thyroid: No thyroid nodules which require sonographic follow up, per consensus guidelines. Axillae: No enlarged lymph nodes. Chest Wall: Unremarkable. Bones: Degenerative changes of the spine. Decreased osseous mineralization. Lungs and Pleura: No pneumothorax or pleural effusions. Ground-glass nodule within the superior aspect of the right lower lobe measuring 7 millimeters (8/99). Scattered pulmonary micro nodules measuring 3 millimeters or less are noted. Heart: Heart size is normal. No pericardial effusion. Thoracic Vessels: No aortic aneurysm. Mediastinum and [place]: No enlarged lymph nodes. Esophagus: No wall thickening. Small hiatal hernia. Upper Abdomen: Visualized upper abdomen solid organs and bowel loops appear normal. IMPRESSION: No pulmonary embolus. No acute cardiopulmonary process. Ground-glass nodule within the right lower lobe measuring 7 millimeters. Scattered pulmonary micro nodules. Based on Fleischner criteria, follow-up CT in 6-12 months is recommended. Dictated by: Krish Mcneill M.D. on 03/14/2025 at 1:09 Approved by: Krish Mcneill M.D. on 03/14/2025 at 1:13
--- NOTE | 2025-03-14 00:45 | PC.NURSE ---
Pt back from restroom and going to CT accompanied by [employer] director
== END 2025-03-14 02:14 | disposition home or self-care (01) ==
PROVIDERS: Emergency Provider Emergency Medicine; Family Provider Internal Medicine; PCP Internal Medicine
DX: R07.9 Chest pain, unspecified (principal); R91.1 Solitary pulmonary nodule
CPT/HCPCS: 36415; 71045; 71275; 80053; 82550; 83690; 83735; 83880; 84484; 85025; 85610; 85730; 87637; 93005; 99284; Q9967